=== PATIENT | female | born 1965 | race Caucasian/White ===

== ENCOUNTER 2020-01-09 10:13 | Outpatient (CLI) | payer OTHER, SELFPAY ==
--- NOTE | 2020-01-09 11:00 | NEURO_ITS ---
Patient Number: [id number] Impression: # History of Carpal Tunnel Syndrome surgery; Complains of bilateral hand pain. # Bilateral ulnar neuropathy across the elbow, left more than right. # Mild residual right median nerve involvement. # Needle/EMG exam abnormal. # Clinical correlation recommended. Nerve Conduction Studies Anti Sensory Summary Table Stim Site NR Peak (ms) P-T Amp (?V) Site1 Site2 Delta-P (ms) Dist (cm) Stan (m/s) Left Median Anti Sensory (2-3nd Digit) Wrist 3.5 26.0 Wrist 2-3nd Digit 3.5 14.0 40 Wrist 3.5 39.4 Wrist 2-3nd Digit 3.5 14.0 40 Right Median Anti Sensory (2-3nd Digit) Wrist 3.6 14.7 Wrist 2-3nd Digit 3.6 14.0 39 Wrist 3.8 19.8 Wrist 2-3nd Digit 3.6 14.0 39 Left Radial Anti Sensory (Base 1st Digit) Wrist 2.2 20.2 Wrist Base 1st Digit 2.2 0.0 Right Radial Anti Sensory (Base 1st Digit) Wrist 2.3 11.7 Wrist Base 1st Digit 2.3 0.0 Left Ulnar Anti Sensory (5th Digit) Wrist 3.1 22.0 Wrist 5th Digit 3.1 14.0 45 Right Ulnar Anti Sensory (5th Digit) Wrist 2.4 26.7 Wrist 5th Digit 2.4 14.0 58 Motor Summary Table Stim Site NR Onset (ms) O-P Amp (mV) Site1 Site2 Delta-0 (ms) Dist (cm) Stan (m/s) Left Median Motor (Abd Poll Brev) Wrist 3.6 7.5 Elbow Wrist 5.4 28.0 52 Elbow 9.0 3.8 Right Median Motor (Abd Poll Brev) Wrist 4.0 0.9 Elbow Wrist 4.2 26.0 62 Elbow 8.2 2.4 Left Ulnar Motor (Abd Dig Minimi) Wrist 3.4 4.3 A Elbow Wrist 6.7 29.0 43 A Elbow 10.1 1.8 B Elbow Wrist 3.7 28.0 76 B Elbow 7.1 2.7 Right Ulnar Motor (Abd Dig Minimi) Wrist 2.4 5.2 A Elbow Wrist 7.4 28.0 38 A Elbow 9.8 3.1 B Elbow Wrist 4.0 20.0 50 B Elbow 6.4 2.8 F Wave Studies NR F-Lat (ms) L-R F-Lat (ms) Left Median (Mrkrs) (Abd Poll Brev) 29.14 0.67 Right Median (Mrkrs) (Abd Poll Brev) 28.48 0.67 Left Ulnar (Mrkrs) (Abd Dig Min) 29.37 0.40 Right Ulnar (Mrkrs) (Abd Dig Min) 28.97 0.40 EMG Side Muscle Nerve Root Ins Act Fibs Amp Dur Recrt Comment Right 1stDorInt Ulnar C8-T1 Nml Nml Nml >12ms Reduced Right Ext Indicis Radial (Post Int) C7-8 Nml Nml Nml Nml Nml Right Ext Digitorum Radial (Post Int) C7-8 Nml Nml Nml Nml Nml Right BrachioRad Radial C5-6 Nml Nml Nml Nml Nml Right PronatorTeres Median C6-7 Nml Nml Nml Nml Nml Right Abd Poll Brev Median C8-T1 Nml Nml Nml >12ms Reduced Left 1stDorInt Ulnar C8-T1 Nml Nml Nml >12ms Reduced Left Ext Indicis Radial (Post Int) C7-8 Nml Nml Nml Nml Nml Left Ext Digitorum Radial (Post Int) C7-8 Nml Nml Nml Nml Nml Left BrachioRad Radial C5-6 Nml Nml Nml Nml Nml Left PronatorTeres Median C6-7 Nml Nml Nml Nml Nml Left Abd Poll Brev Median C8-T1 Nml Nml Nml >12ms Reduced MTDD
== END 2020-01-09 10:14 | disposition home or self-care (01) ==
PROVIDERS: PCP Internal Medicine Gastroenterology; Visit Provider Orthopaedic Surgery
DX: G56.23 Lesion of ulnar nerve, bilateral upper limbs (principal)
CPT/HCPCS: 95886; 95911

== ENCOUNTER 2022-07-23 10:08 | Emergency (ER) | payer OTHER, SELFPAY ==
--- NOTE | ~2022-07-23 | XR_ITS ---
EXAMINATION: XR chest 1V portable DATE: 07/23/2022 12:31 INDICATION: Cough and congestion. TECHNIQUE: A single frontal view of the chest was obtained. COMPARISON: None. FINDINGS: The chest demonstrates clear lungs without pneumonia, pleural effusion, or pneumothorax. Th e heart size is normal. IMPRESSION: 1. No acute cardiopulmonary disease. Reviewed, dictated and finalized at location A. 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
[2022-07-23 10:12] VITALS: BP 139/79; PULSE 91; RESP 18; TEMP 36.1; O2SAT 96
[2022-07-23] MEDS: SODIUM CHLORIDE 0.9% IV 1,000 ML 999 ML IV CONT (10:54)
[2022-07-23] MEDS: ONDANSETRON INJ 4 MG/2 ML VIAL IV PUSH (10:55)
[2022-07-23] MEDS: ACETAMINOPHEN 500 MG TABLET 1000 MG PO (10:56)
[2022-07-23 11:05] VITALS: BP 140/81; PULSE 84; RESP 16; TEMP 37.1; O2SAT 98
[2022-07-23 11:16] LABS: Basophils Absolute Auto 0.02 K/mm3 (0.00-0.10); Basophils Percent Auto 0.2 % (0.0-1.0); Eosinophils Absolute Auto 0.27 K/mm3 (0.02-0.50); Eosinophils Percent Auto 2.8 % (1.0-6.0); Hematocrit 35.7 % (35.0-49.0); Hemoglobin 11.2 g/dL (12.0-15.0); Immature Granulocyte Absolute 0.06 K/mm3 (0.00-0.00); Immature Granulocyte Percent A 0.6 % (0.0-0.0); Lymphocytes Absolute Auto 1.88 K/mm3 (1.10-4.50); Lymphocytes Percent Auto 19.6 % (18.0-42.0); Mean Corpuscular HGB Conc 31.4 g/dL (32.0-36.0); Mean Corpuscular Hemoglobin 29.1 pg (27.0-31.0); Mean Corpuscular Volume 92.7 fL (78.0-102.0); Mean Platelet Volume 8.8 fl (9.2-11.8); Monocytes Absolute Auto 0.34 K/mm3 (0.10-0.90); Monocytes Percent Auto 3.5 % (2.0-11.0); Neutrophils Percent Auto 73.3 % (50.0-70.0); Platelet Count Result 290 K/mm3 (150-420); Red Blood Count 3.85 M/mm3 (4.20-5.40); Red Cell Distribution Width 13.4 % (11.6-14.4); White Blood Count 9.6 K/mm3 (4.8-10.8)
[2022-07-23 11:19] LABS: Add Urine Microscopic? YES; Appearance Urine Clear (Clear); Bilirubin Urine 1+ (Negative); Blood Urine 2+ (Negative); Color Urine Yellow (Yellow); Glucose Urine UA Negative (Negative); Ketones Urine Trace (Negative); Leukocyte Esterase Ur Negative LEU/UL (Negative); Nitrate Urine Negative (Negative); Protein Urine Trace (Negative); Specific Grav Ur 1.025 (1.010-1.020); Urobilinogen Urine 0.2 mg/dL (0.2-1.0); pH Urine 6.5 (5.0-8.0)
[2022-07-23 11:23] LABS: Bacteria Urine 1+ /hpf; Squamous Epithelial Cell Urine Moderate /hpf (Few); WBC Urine None seen /hpf (0-3)
[2022-07-23 11:24] LABS: Mucus Urine Moderate /lpf
[2022-07-23 11:32] LABS: Alanine Aminotransferase 16 U/L (14-59); Albumin Level 2.8 g/dL (3.4-5.0); Alkaline Phosphatase 100 U/L (46-116); Anion Gap 5 mmol/L (8-16); Aspartate Amino Transferase 18 U/L (15-37); Bilirubin,Total 0.2 mg/dL (0.00-1.00); Blood Urea Nitrogen 9 mg/dL (7-18); Carbon Dioxide 29 mmol/L (21-32); Chloride 104 mmol/L (98-108); Estimated CRCL calculation 80 ml/min; Estimated Glomerular Filt Rate > 60; Glucose 106 mg/dL (70-99); Lipase 48 U/L (16-77); Osmolality Calculated 284 mOsm/kg (285-295); Potassium 3.1 mmol/L (3.5-5.1); Sodium 138 mmol/L (136-145); Total Protein 6.7 g/dL (6.4-8.2)
[2022-07-23 11:53] LABS: Influenza A QL RT-PCR Negative (Negative); Influenza B QL RT-PCR Negative (Negative); SARS-CoV-2 RNA PCR Negative (Negative)
[2022-07-23 12:05] VITALS: BP 129/74; PULSE 85; RESP 18; O2SAT 97
--- NOTE | 2022-07-23 12:52 | ED.NAVMDI ---
HPI - Nausea/Vomiting/Diarrhea General Chief complaint: Nausea/Vomiting/Diarrhea Stated complaint: Cough,Fever,Diarrhea,Nausea Time Seen by Provider: 07/23/22 10:20 Source: patient and family Mode of arrival: ambulatory Limitations: no limitations History of Present Illness HPI Narrative: this is a 57-year-old female that presents with some a month long history of diarrhea which she states is pretty much normal for her with cough and mucus production and having some nausea with no vomiting temperature of 101? no abdominal pain patient denies having dysuria no flank pain cough is nonproductive with no shortness of breath no chest pain. MD elicited complaint: nausea and diarrhea Onset (ago): month(s) Description of diarrhea: mucus and watery Severity: mild Related Data Home Medications Medication Instructions Recorded Confirmed gabapentin 600 mg tablet 600 mg PO TID 07/23/22 07/23/22 lithium carbonate 300 mg capsule 300 mg PO BID 07/23/22 07/23/22 omeprazole magnesium 20 mg 20 mg PO DAILY 07/23/22 07/23/22 tablet,delayed release (Prilosec OTC) quetiapine 50 mg tablet 50 mg PO QHS 07/23/22 07/23/22 sertraline 100 mg tablet 100 mg PO TID 07/23/22 07/23/22 Allergies Allergy/AdvReac Type Severity Reaction Status Date / Time adhesive tape Allergy Severe BLISTERS Verified 07/23/22 10:30 ferrous fumarate Allergy Severe HIVES, SOB Verified 07/23/22 10:30 folic acid Allergy Severe HIVES, SOB Verified 07/23/22 10:30 morphine Allergy Severe IRRITABILIT Verified 07/23/22 10:30 Y vit,tx Allergy Severe HIVES, SOB Verified 07/23/22 10:30 calc,iron,folic acd(less thn 1 mg) vitamins with Allergy Severe HIVES, SOB Verified 07/23/22 10:30 calcium Tombufj-CTZ-RqU Reductase Allergy Severe DECREASED Verified 07/23/22 10:30 Inhibitor KIDNEY [Wgjkvvn-Xmk-Fuq Reductase FUNCTION Inhibitor] Review of Systems Review of Systems: All systems reviewed & are unremarkable except as noted in HPI and below PMFSH Past Medical History Medical History Chronic diarrhea Exam Const: General: healthy appearing Nutritional Appearance: well nourished Orientation/consciousness: patient oriented x3 Limitations: no limitations HENMT: Head: normal to inspection Eyes: Conjunctivae: conjunctivae normal Pupils: Equal, round and reactive pupils present EOM: EOMs intact bilaterally Neck: Neck: normal visual inspection, no lymphadenopathy and no meningeal signs Chest: Chest palpation & inspection: normal inspection of the chest Resp: Effort & Inspection: normal respiratory effort Auscultation: clear to auscultation bilaterally Cardio: Rate: regular rate Rhythm: regular rhythm GI: GI Palp: Yes Soft to palpation Auscultation: normal bowel sounds : General: Yes bladder normal to palpation Urinary Catheter: Urinary Catheter: patent and draining Skin: General skin exam: normal color Rashes: no rashes Wounds: no wounds Neuro: General: patient oriented x3 Cranial nerves: Yes Nystagmus not present Speech: normal speech Extrem: General: normal to inspection Psych: Mental Status: mental status grossly normal Affect: normal affect Course Course Emergency Course: labs and x-ray reviewed with patient with which is within normal limits except her potassium which was 3.1, patient received in the ER IV fluids and a dose of p.o. potassium chest x-ray reviewed and shows no acute cardiopulmonary abnormalities and will start Z-Gordon at which we will send to her pharmacy. Vital Signs Vital signs: Vital Signs Temperature 36.1 C L 07/23/22 10:12 Pulse Rate 91 07/23/22 10:12 Respiratory Rate 18 07/23/22 10:12 Blood Pressure 139/79 07/23/22 10:12 Pulse Oximetry 96 07/23/22 10:12 Oxygen Delivery Room Air 07/23/22 10:12 Temperature 37.1 C 07/23/22 11:05 Pulse Rate 85 07/23/22 12:05 Respiratory Rate 18 07/23/22
[2022-07-23] MEDS: POTASSIUM BICARBONATE 25 MEQ TABEF 50 MEQ PO (13:07)
[2022-07-23 13:11] VITALS: BP 145/73; PULSE 65; RESP 16; TEMP 36.2; O2SAT 98
== END 2022-07-23 13:14 | disposition home or self-care (01) ==
PROVIDERS: Emergency Provider Emergency Medicine; PCP Internal Medicine Gastroenterology
DX: E86.0 Dehydration (principal); J40 Bronchitis, not specified as acute or chronic; E87.6 Hypokalemia; Z20.822 Contact with and (suspected) exposure to COVID-19
CPT/HCPCS: 36415; 71045; 80053; 81001; 83690; 85025; 87040; 87636; 96361; 96374; 99284; A9270; J2405; J7030

== ENCOUNTER 2023-01-27 19:42 | Emergency (ER) | payer OTHER, SELFPAY ==
[2023-01-27 19:48] VITALS: BP 140/74; PULSE 84; RESP 18; TEMP 37.1; O2SAT 97
--- NOTE | 2023-01-27 20:01 | ED.EXTPRO ---
HPI - Extremity Problem General Chief complaint: Extremity Problem,Nontraumatic Stated complaint: Blood Clot Source: patient Mode of arrival: ambulatory Limitations: no limitations History of Present Illness HPI Narrative: 57-year-old female with a history of anxiety /depression, bipolar, presents to the ER with -- left lateral leg pain around the ankle along with a knot about left ankle. Patient thinks it is a blood clot. No chest pain. No shortness of breath. MD Complaint: extremity pain Onset (ago): day(s) Pain Consistency: intermittent Location: left Radiation: none Relieving factors: immobilization Exacerbating factors: weight bearing Associated symptoms: denies other symptoms Related Data Home Medications Medication Instructions Recorded Confirmed gabapentin 600 mg tablet 600 mg PO TID 07/23/22 07/23/22 lithium carbonate 300 mg capsule 300 mg PO BID 07/23/22 07/23/22 omeprazole magnesium 20 mg 20 mg PO DAILY 07/23/22 07/23/22 tablet,delayed release (Prilosec OTC) quetiapine 50 mg tablet 50 mg PO QHS 07/23/22 07/23/22 sertraline 100 mg tablet 100 mg PO TID 07/23/22 07/23/22 Allergies Allergy/AdvReac Type Severity Reaction Status Date / Time adhesive tape Allergy Severe BLISTERS Verified 07/23/22 10:30 ferrous fumarate Allergy Severe HIVES, SOB Verified 07/23/22 10:30 folic acid Allergy Severe HIVES, SOB Verified 07/23/22 10:30 morphine Allergy Severe IRRITABILIT Verified 07/23/22 10:30 Y vit,tx Allergy Severe HIVES, SOB Verified 07/23/22 10:30 calc,iron,folic acd(less thn 1 mg) vitamins with Allergy Severe HIVES, SOB Verified 07/23/22 10:30 calcium Exaghbv-GSR-NzG Reductase Allergy Severe DECREASED Verified 07/23/22 10:30 Inhibitor KIDNEY [Fmqazwj-Idg-Wrc Reductase FUNCTION Inhibitor] Review of Systems Review of Systems: All systems reviewed & are unremarkable except as noted in HPI and below Constitutional: Constitutional: Reports as per HPI and Reports no additional constitutional complaints Eyes: Eyes: Reports as per HPI and Reports no additional eye complaints ENT: Reports system reviewed and no additional complaints, except as documented and Reports as per HPI Cardiovascular: Cardiovascular: Reports as per HPI and Reports no additional cardiovascular complaints Respiratory: Respiratory: Reports as per HPI and Reports no additional respiratory complaints Gastrointestinal: Gastrointestinal: Reports as per HPI and Reports no additional gastrointestinal complaints Genitourinary: Genitourinary: Reports no additional female genitourinary complaints and Reports as per HPI Musculoskeletal: Musculoskeletal: Reports no additional musculoskeletal complaints and Reports as per HPI Comments: Pain left lateral leg. no swelling noted Integumentary/Breasts: Skin/Breast: Reports system reviewed and no additional complaints, except as docu Neurologic: Reports system reviewed and no additional complaints, except as documented and Reports as per HPI Psychiatric: Psychiatric: Reports no additional psychiatric complaints and Reports as per HPI Endocrine: Endocrine: Reports no additional endocrine complaints and Reports as per HPI Hematologic/Lymphatic: Hematologic/Lymphatic: Reports no additional hematologic/lymphatic complaints and Reports as per HPI Allergic/Immunologic: Allergic/Immunologic: Reports no additional allergic/immunologic complaints and Reports as per HPI PMFSH Past Medical History Medical History (Updated 01/27/23 @ 21:16 by Seth Soto MD) Bipolar 1 disorder section wound complication Chronic diarrhea Surgical History Surgical History (Updated 01/27/23 @ 20:31 by Seth Soto MD) H/O: hysterectomy Social History Social History (Updated 01/27/23 @ 20:31 by Seth Soto MD) Social History: nonsmoker. Nonalcoholic. No drug use. Exam Const: General: no acute distress Nutritiona
[2023-01-27 20:36] LABS: Basophils Absolute Auto 0.02 K/mm3 (0.00-0.10); Basophils Percent Auto 0.2 % (0.0-1.0); Eosinophils Absolute Auto 0.21 K/mm3 (0.02-0.50); Eosinophils Percent Auto 2.2 % (1.0-6.0); Hematocrit 39.7 % (35.0-49.0); Hemoglobin 12.5 g/dL (12.0-15.0); Immature Granulocyte Absolute 0.02 K/mm3 (0.00-0.00); Immature Granulocyte Percent A 0.2 % (0.0-0.0); Lymphocytes Absolute Auto 2.55 K/mm3 (1.10-4.50); Mean Corpuscular HGB Conc 31.5 g/dL (32.0-36.0); Mean Corpuscular Hemoglobin 29.7 pg (27.0-31.0); Mean Corpuscular Volume 94.3 fL (78.0-102.0); Mean Platelet Volume 8.7 fl (9.2-11.8); Monocytes Absolute Auto 0.35 K/mm3 (0.10-0.90); Monocytes Percent Auto 3.7 % (2.0-11.0); Neutrophils Absolute Auto 6.3 K/mm3 (1.7-7.2); Neutrophils Percent Auto 66.7 % (50.0-70.0); Platelet Count Result 278 K/mm3 (150-420); Red Blood Count 4.21 M/mm3 (4.20-5.40); Red Cell Distribution Width 14.6 % (11.6-14.4); White Blood Count 9.5 K/mm3 (4.8-10.8)
[2023-01-27 20:50] LABS: INR 0.9; Partial Thromboplastin Time 24.2 SEC (23.90-30.70); Prothrombin Time 9.8 Seconds (9.50-12.10)
[2023-01-27 20:58] LABS: Lactic Acid Reflex < 0.3 mmol/L (0.4-2.0)
[2023-01-27 20:59] LABS: Alanine Aminotransferase 23 U/L (14-59); Albumin Level 3.6 g/dL (3.4-5.0); Alkaline Phosphatase 109 U/L (46-116); Anion Gap 7 mmol/L (8-16); Aspartate Amino Transferase 22 U/L (15-37); Bilirubin,Total 0.5 mg/dL (0.00-1.00); Blood Urea Nitrogen 10 mg/dL (7-18); Calcium 8.9 mg/dL (8.5-10.1); Carbon Dioxide 28 mmol/L (21-32); Chloride 105 mmol/L (98-108); Estimated CRCL calculation 67 ml/min; Estimated Glomerular Filt Rate > 60; Glucose 119 mg/dL (70-99); Osmolality Calculated 290 mOsm/kg (285-295); Sodium 140 mmol/L (136-145); Total Protein 7.2 g/dL (6.4-8.2)
[2023-01-27 21:00] LABS: Troponin I 6.3 ng/L (0.00-60.4)
[2023-01-27 21:08] LABS: D Dimer 0.96 mg/L (0.19-0.50)
[2023-01-27] MEDS: ENOXAPARIN 100 MG/ML SYRINGE SUB-Q (21:19)
[2023-01-27 21:22] VITALS: BP 135/85; PULSE 85; RESP 18; TEMP 36.6; O2SAT 97
== END 2023-01-27 21:31 | disposition home or self-care (01) ==
PROVIDERS: Emergency Provider Internal Medicine Critical Care Medicine; PCP Internal Medicine Gastroenterology
DX: M79.605 Pain in left leg (principal); R79.1 Abnormal coagulation profile
CPT/HCPCS: 36415; 80053; 83605; 84484; 85025; 85380; 85610; 85730; 96372; 99283; J1650

== ENCOUNTER 2023-01-28 21:18 | Emergency (ER) | payer OTHER, SELFPAY ==
--- NOTE | ~2023-01-28 | CT_ITS ---
Clinical Indication: Shortness of breath CT Scan of the Chest with Contrast: Technique: Contiguous sections were acquired throughout the chest after intravenous administration of 100 cc of Omnipaque 350. Dose reduction technique was used on this scan by utilizing automated expos ure control and iterative reconstruction technique. The dose-length product (DLP) was 691.11 mGy-cm. Findings: There is no evidence of any significant mediastinal, hilar or axillary lymphadenopathy. There is no f illing defect in the pulmonary arterial tree to suggest pulmonary embolus. There is no evidence of ao rtic dissection or aneurysm. There is no evidence of pleural or pericardial effusion. Suggestion of minimal diffuse interstitial prominence, nonspecific. No focal consolidation or pulmona ry nodule evident. Images through the upper abdomen reveal no abnormalities. Impression: No evidence of pulmonary embolus, aortic dissection, or aortic aneurysm. Minimal diffuse interstitial prominence, nonspecific. Correlate for any possibility of minimal pulmon aurora edema or interstitial infection. Reviewed, dictated and finalized at [facility]. Impression: No evidence of pulmonary embolus, aortic dissection, or aortic aneurysm. Minimal diffuse interstitial prominence, nonspecific. Correlate for any possibi lity of minimal pulmonary edema or interstitial infection.
[2023-01-28 21:26] VITALS: BP 146/77; PULSE 82; RESP 17; TEMP 36.4; O2SAT 99
[2023-01-28 23:36] VITALS: BP 155/97; PULSE 73; RESP 15; TEMP 36.6; O2SAT 100
[2023-01-29] VITALS (7 sets, daily range): BP systolic 114–131; BP diastolic 69–74; PULSE 61–72; RESP 10–18; TEMP 36.6; O2SAT 96–98
--- NOTE | 2023-01-29 00:43 | ECG_ITS ---
Measurements Intervals Beals Rate: 61 P: 34 AK: 167 QRS: 28 QRSD: 96 T: 29 QT: 447 QTc: 451 Interpretive Statements SINUS RHYTHM INCOMPLETE RIGHT BUNDLE BRANCH BLOCK DELAYED PRECORDIAL R/S TRANSITION BASELINE ARTIFACT- II, III, AVR, AVF, V1-V3 BORDERLINE ECG COMPARED TO ECG 12/08/2018 14:28:58 NO SIGNIFICANT CHANGES Electronically Signed On 01-29-2023 9:46:00 CDT by Bentley Blanc D.O.
[2023-01-29 01:07] LABS: Basophils Percent Auto 0.2 % (0.2-1.2); Eosinophils Absolute Auto 0.3 K/mm3 (0-0.3); Eosinophils Percent Auto 2.6 % (0-4.4); Hematocrit 39.6 % (37.0-47.0); Hemoglobin 12.2 g/dL (12.0-15.0); Immature Granulocyte Absolute 0.04 K/mm3 (0.00-0.031); Immature Granulocyte Percent A 0.4 % (0-0.5); Lymphocytes Absolute Auto 3.32 K/mm3 (0.9-3.2); Mean Corpuscular HGB Conc 30.8 g/dl (32-36); Mean Corpuscular Hemoglobin 29.4 pg (26-34); Mean Corpuscular Volume 95.4 fl (80-100); Mean Platelet Volume 8.9 fl (7.4-10.4); Monocytes Absolute Auto 0.5 K/mm3 (0.1-0.6); Monocytes Percent Auto 4.9 % (2.6-8.5); Neutrophils Absolute Auto 6.2 K/mm3 (1.3-6.7); Neutrophils Percent Auto 59.9 % (45.5-73.1); Platelet Count Result 278 k/mm3 (150-375); Red Blood Count 4.15 M/mm3 (4.2-5.4); White Blood Count 10.4 K/mm3 (4.5-10.0)
[2023-01-29 01:18] LABS: INR 0.9
[2023-01-29 01:19] LABS: Partial Thromboplastin Time 23.6 SECONDS (22.3-36.8)
[2023-01-29 01:30] LABS: Alanine Aminotransferase 23 U/L (6-35); Albumin Level 4.1 g/dL (3.5-5.1); Alkaline Phosphatase 96 U/L (38-126); Anion Gap 0 mmol/L (8-16); Aspartate Amino Transferase 32 U/L (14-36); Bilirubin,Total 0.4 mg/dL (0.2-1.3); Blood Urea Nitrogen 10 mg/dL (7-17); Calcium 9.3 mg/dL (8.4-10.2); Carbon Dioxide 31 mmol/L (22-30); Chloride 103 mmol/L (98-107); Estimated CRCL calculation 74 ml/min; Estimated Glomerular Filt Rate > 60; Glucose 95 mg/dL (65-110); Sodium 134 mmol/L (137-145); Troponin I < 0.012 ng/mL (0.000-0.034)
--- NOTE | 2023-01-29 02:52 | ED.LOWEXIN ---
HPI - Extremity Injury (Lower) General Chief Complaint: Extremity Injury, Lower <Madison Pendleton APRN - Last Filed: 01/29/23 03:23> Stated Complaint: concerned about blood clot LLE <Madison Pendleton APRN - Last Filed: 01/29/23 03:23> Time Seen by Provider: 01/29/23 00:37 <Madison Pendleton APRN - Last Filed: 01/29/23 03:23> Source: patient <Madison Pendleton APRN - Last Filed: 01/29/23 03:23> Mode of arrival: ambulatory <Madison Pendleton APRN - Last Filed: 01/29/23 03:23> Limitations: no limitations <Madison Pendleton APRN - Last Filed: 01/29/23 03:23> History of Present Illness HPI Narrative: 58-year-old female presents today with complaints of left lower extremity swelling and pain without injury. Patient was seen on at [facility] when she was evaluated for a possible DVT. D-dimer was elevated at that time. Patient did not have an ultrasound venous Doppler done due to the facility not having capabilities at that time. She was given a dose of Lovenox and instructed to follow-up with her primary care doctor today who would prescribe a ultrasound venous Doppler. Patient did not follow-up with her primary care physician today. States she called up around 10:00 in summary and told her that we would be able to do an ultrasound venous Doppler at that time if she came in. Patient now with complaints of about 5 hours ago intermittent shortness of breath and intermittent chest pain. Patient states she does have a history of anxiety and it could possibly be just that. Pain to the center of the chest a dull ache. Some shortness of breath with activity. She is in ex-smoker. <Madison Pendleton APRN - Last Filed: 01/29/23 03:23> Related Data Home Medications: Home Medications Medication Instructions Recorded Confirmed gabapentin 600 mg tablet 600 mg PO TID 07/23/22 07/23/22 lithium carbonate 300 mg capsule 300 mg PO BID 07/23/22 07/23/22 omeprazole magnesium 20 mg 20 mg PO DAILY 07/23/22 07/23/22 tablet,delayed release (Prilosec OTC) quetiapine 50 mg tablet 50 mg PO QHS 07/23/22 07/23/22 sertraline 100 mg tablet 100 mg PO TID 07/23/22 07/23/22 <Madison Pendleton APRN - Last Filed: 01/29/23 03:23> Allergies/Adverse Reactions: Allergies Allergy/AdvReac Type Severity Reaction Status Date / Time adhesive tape Allergy Severe BLISTERS Verified 07/23/22 10:30 ferrous fumarate Allergy Severe HIVES, SOB Verified 07/23/22 10:30 folic acid Allergy Severe HIVES, SOB Verified 07/23/22 10:30 morphine Allergy Severe IRRITABILIT Verified 07/23/22 10:30 Y vit,tx Allergy Severe HIVES, SOB Verified 07/23/22 10:30 calc,iron,folic acd(less thn 1 mg) vitamins with Allergy Severe HIVES, SOB Verified 07/23/22 10:30 calcium Lnenkjr-LJO-FaK Reductase Allergy Severe DECREASED Verified 07/23/22 10:30 Inhibitor KIDNEY [Jnyvlgs-Brg-Bnu Reductase FUNCTION Inhibitor] <Madison Pendleton APRN - Last Filed: 01/29/23 03:23> Review of Systems Review of Systems: CONSTITUTIONAL: Denies fever, chills, or sweats. EYES: Denies visual changes, redness, or discharge. ENT: Denies rhinorrhea, congestion, sore throat, or otalgia. CARDIOVASCULAR: Chest pain. Denies palpitations, or edema. RESPIRATORY: Dyspnea on exertion. Denies cough. GASTROINTESTINAL: Denies abdominal pain, nausea, vomiting, or diarrhea. GENITOURINARY: Denies dysuria or hematuria. MUSCULOSKELETAL: Denies back pain, joint pain, or myalgia. NEUROLOGIC: Denies headache, numbness, dizziness, or weakness. PSYCHIATRIC: Denies anxiety or depression. <Madison Pendleton APRN - Last Filed: 01/29/23 03:23> PMFSH Past Medical History Medical History: Medical History Bipolar 1 disorder section wound complication Chronic diarrhea <Madison Pendleton APRN - Last Filed: 01/29/23 03:23> Surgical History Surgical History: Surgical History
[2023-01-29] MEDS: ENOXAPARIN 100 MG/ML SYRINGE 86 MG SUB-Q (03:21)
== END 2023-01-29 03:32 | disposition home or self-care (01) ==
PROVIDERS: Emergency Provider Nurse Practitioner Family; PCP Internal Medicine Gastroenterology
DX: R06.02 Shortness of breath (principal); F41.9 Anxiety disorder, unspecified; M79.89 Other specified soft tissue disorders; R79.1 Abnormal coagulation profile
CPT/HCPCS: 36415; 71275; 80053; 84484; 85025; 85610; 85730; 93005; 96372; 99284; J1650; Q9967

== ENCOUNTER 2023-02-03 09:53 | Outpatient (CLI) | payer OTHER, SELFPAY ==
--- NOTE | ~2023-02-03 | US_ITS ---
EXAMINATION: US venous doppler [facility] DATE: 02/03/2023 10:27 INDICATION: LEFT LEG PAIN;LEFT LEG SWELLING;ELEVATED D-DIMER;R/O DVT . TECHNIQUE: Grayscale images without and with compression and Doppler images of the left lower extremi ty veins were obtained. COMPARISON: None FINDINGS: The left common femoral vein, profunda (deep) femoral vein, femoral vein, popliteal vein, peroneal v ein, posterior tibial veins, gastrocnemius vein, and greater saphenous vein are patent. Flat, hypoech oic subcutaneous area deep to the palpable abnormality, may represent a contusion/hematoma, or focal subcutaneous edema. IMPRESSION: Patent left lower extremity veins. No evidence of deep venous thrombosis. Reviewed, dictated and finalized at location K.
== END 2023-02-03 09:54 | disposition home or self-care (01) ==
PROVIDERS: PCP Internal Medicine Gastroenterology; Visit Provider Nurse Practitioner Family
DX: M79.662 Pain in left lower leg (principal)
CPT/HCPCS: 93971

== ENCOUNTER 2023-02-26 14:48 | Outpatient (CLI) | payer OTHER, SELFPAY ==
--- NOTE | ~2023-02-26 | US_ITS ---
EXAMINATION: US thyroid DATE: 02/26/2023 15:10 INDICATION: Nontoxic goiter. TECHNIQUE: Multiple ultrasound images of the thyroid were obtained. COMPARISON: None. FINDINGS: The right thyroid lobe measures 4.2 x 1.6 x 2.3 cm. The left thyroid lobe measures 3.7 x 1.7 x 1.8 c m. There is normal echotexture and echogenicity throughout the thyroid gland. No discrete nodules id entified. Normal vascular flow is present. IMPRESSION: 1. Normal thyroid. Reviewed, dictated and finalized at location A. IMPRESSION: 1. Normal thyroid.
[2023-02-26 15:30] LABS: Basophils Absolute Auto 0.02 K/mm3 (0.00-0.10); Basophils Percent Auto 0.2 % (0.0-1.0); Eosinophils Absolute Auto 0.21 K/mm3 (0.02-0.50); Eosinophils Percent Auto 2.6 % (1.0-6.0); Hemoglobin 12.2 g/dL (12.0-15.0); Immature Granulocyte Absolute 0.02 K/mm3 (0.00-0.00); Immature Granulocyte Percent A 0.2 % (0.0-0.0); Lymphocytes Absolute Auto 2.63 K/mm3 (1.10-4.50); Lymphocytes Percent Auto 32.4 % (18.0-42.0); Mean Corpuscular HGB Conc 32.1 g/dL (32.0-36.0); Mean Corpuscular Hemoglobin 30.2 pg (27.0-31.0); Mean Corpuscular Volume 94.1 fL (78.0-102.0); Mean Platelet Volume 8.5 fl (9.2-11.8); Monocytes Absolute Auto 0.36 K/mm3 (0.10-0.90); Monocytes Percent Auto 4.4 % (2.0-11.0); Neutrophils Absolute Auto 4.9 K/mm3 (1.7-7.2); Neutrophils Percent Auto 60.2 % (50.0-70.0); Platelet Count Result 285 K/mm3 (150-420); Red Blood Count 4.04 M/mm3 (4.20-5.40); Red Cell Distribution Width 14.2 % (11.6-14.4); White Blood Count 8.1 K/mm3 (4.8-10.8)
[2023-02-26 16:35] LABS: Cholesterol 318 mg/dL (0-200); Ferritin 22 ng/mL (8-252); Folic Acid 4.8 ng/mL (8.6->20); Free T3 2.01 pg/mL (2.18-3.98); HDL Direct 32 mg/dL (40-60); Iron 63 ug/dL (50-170); LDL Cholesterol Calculated 240 mg/dL (<130); Percent Iron Saturation 17 % (12-57); Triglycerides 232 mg/dL (0-150); Vitamin B12 300 pg/mL (193-986)
[2023-02-26 18:21] LABS: Free T4 Free Thyroxine 0.65 ng/dL (0.76-1.46)
[2023-03-02 03:59] LABS: Insulin Level Total 5.2 uIU/mL (<=19.6); Thyroid Peroxidase Antibodies 1 IU/mL (<9)
== END 2023-02-26 14:49 | disposition home or self-care (01) ==
PROVIDERS: PCP Internal Medicine Gastroenterology; Visit Provider Internal Medicine Gastroenterology
DX: E04.9 Nontoxic goiter, unspecified (principal); R53.83 Other fatigue; E03.9 Hypothyroidism, unspecified; E78.5 Hyperlipidemia, unspecified
CPT/HCPCS: 36415; 76536; 80061; 82607; 82728; 82746; 83525; 83540; 83550; 84439; 84443; 84481; 85025; 86376

== ENCOUNTER 2023-03-03 10:34 | Outpatient (CLI) | payer OTHER, SELFPAY ==
--- NOTE | ~2023-03-03 | CT_ITS ---
EXAMINATION: CT brain wo con DATE: 03/03/2023 10:52 INDICATION: Headache. TECHNIQUE: Computed tomography (CT) of the head was performed without intravenous contrast. The mA wa s adjusted according to patient size. Iterative reconstruction technique was employed. The dose-lengt h product was 681.00 mGy-cm. COMPARISON: None FINDINGS: There is no intracranial hemorrhage, acute infarction, or abnormal intracranial mass lesion . The ventricles are normal in size. There are likely changes of ocular lens replacement surgeries. T here is mild mucosal thickening in the paranasal sinuses. The mastoid air cells are normal. IMPRESSION: 1. Normal brain. Reviewed, dictated and finalized at location A. IMPRESSION: 1. Normal brain.
== END 2023-03-03 10:35 | disposition home or self-care (01) ==
LOC: CHSIMG 10:36
PROVIDERS: PCP Internal Medicine Gastroenterology; Visit Provider Internal Medicine Gastroenterology
DX: R51.9 Headache, unspecified (principal)
CPT/HCPCS: 70450

== ENCOUNTER 2023-11-24 12:33 | Emergency (ER) | payer OTHER, SELFPAY ==
[2023-11-24] VITALS (11 sets, daily range): BP systolic 127–174; BP diastolic 61–104; PULSE 59–78; RESP 10–27; TEMP 36.2; O2SAT 94–100
--- NOTE | ~2023-11-24 | XR_ITS ---
EXAMINATION: XR chest 1V portable DATE: 11/24/2023 12:55 INDICATION: Epigastric abdominal pain. Chest pain. TECHNIQUE: A single frontal view of the chest was obtained. COMPARISON: Chest single view 07/23/22, chest CT 01/29/2023 FINDINGS: There is no pneumonia, pleural effusion, or pneumothorax. The heart size is normal. IMPRESSION: 1. No acute cardiopulmonary disease. Reviewed, dictated and finalized at location A.
--- NOTE | ~2023-11-24 | CT_ITS ---
EXAMINATION: CTA chest PE protocol DATE: 11/24/2023 14:01 INDICATION: Chest pain. TECHNIQUE: Computed tomography angiography (CTA) of the chest was performed with 100 mL Omnipaque-350 intravenous contrast timed to evaluate the pulmonary arteries. Coronal maximum intensity projection 3D-reconstructions were created by the technologist. Automated exposure control and iterative reconst ruction technique were employed. The dose-length product was 622.27 mGy-cm. COMPARISON: Chest CT 01/29/2023 FINDINGS: A calcified right lung nodule and calcified right hilar lymph nodes are consistent with old granulomatous disease. There is diffuse septal thickening in the lungs associated with mild groundgl ass opacities. No pleural effusion. The heart size is normal. There are coronary artery calcification s. No pericardial effusion. There is no pulmonary embolus. Calcifications in the spleen are consisten t with old granulomatous disease. There is severe thoracic spondylosis. IMPRESSION: 1. No pulmonary embolus. 2. Stable diffuse lung disease, which may be recurrent mild pulmonary edema or chronic interstitial l sima disease. Reviewed, dictated and finalized at location A. IMPRESSION: 1. No pulmonary embolus. 2. Stable diffuse lung disease, which may be recurrent mild pulmonary edema or chronic interstitial lung disease.
--- NOTE | 2023-11-24 12:35 | PC.NURSE ---
EKG being completed
--- NOTE | 2023-11-24 12:36 | ECG_ITS ---
SEE SCANNED COPY FOR CONFIRMED REPORT MTDD
--- NOTE | 2023-11-24 12:36 | ED.CHESTPAIN ---
HPI - Chest Pain General Chief Complaint: Chest Pain Stated Complaint: CHEST PAIN Time Seen by Provider: 11/24/23 12:36 Source: patient Mode of arrival: ambulatory Limitations: no limitations History of Present Illness HPI narrative: 58 year old female presents to the Emergency Department complaining of awakening with substernal chest pain. Describes as tightness and burning. History of pains in the past but not like this. Denies shortness of breath. Some nausea, no diaphoresis. No radiation of pain. No history of heart disease. Family history is positive for heart disease. Quit smoking 9 years ago. States vapes rarely. MD complaint: chest pain Onset (ago): hour(s) Prior episodes: No Pain location: substernal Pain radiation: none Severity: moderate Quality: tightness and burning Relieving factors: nothing Exacerbating factors: nothing Associated symptoms: nausea Treatment prior to arrival: none Risk Factors Coronary artery disease risk factors: smoking history and family history of CAD before age 50 Thoracic aortic dissection risk factors: none Related Data Home Medications Medication Instructions Recorded Confirmed gabapentin 600 mg tablet 600 mg PO TID 07/23/22 11/24/23 lithium carbonate 300 mg capsule 300 mg PO BID 07/23/22 11/24/23 omeprazole magnesium 20 mg 20 mg PO DAILY 07/23/22 11/24/23 tablet,delayed release (Prilosec OTC) quetiapine 50 mg tablet 50 mg PO QHS 07/23/22 11/24/23 sertraline 100 mg tablet 100 mg PO TID 07/23/22 11/24/23 Allergies Allergy/AdvReac Type Severity Reaction Status Date / Time adhesive tape Allergy Severe BLISTERS Verified 07/23/22 10:30 ferrous fumarate Allergy Severe HIVES, SOB Verified 07/23/22 10:30 folic acid Allergy Severe HIVES, SOB Verified 07/23/22 10:30 morphine Allergy Severe IRRITABILIT Verified 07/23/22 10:30 Y vit,tx Allergy Severe HIVES, SOB Verified 07/23/22 10:30 calc,iron,folic acd(less thn 1 mg) vitamins with Allergy Severe HIVES, SOB Verified 07/23/22 10:30 calcium Ivbrahn-CXK-RuM Reductase Allergy Severe DECREASED Verified 07/23/22 10:30 Inhibitor KIDNEY [Aungwzc-Poy-Brl Reductase FUNCTION Inhibitor] Review of Systems Review of Systems: All systems reviewed & are unremarkable except as noted in HPI and below Constitutional: Constitutional: Reports as per HPI, Denies chills, Denies fatigue, Denies fever(s) and Denies weakness Eyes: Eyes: Reports as per HPI ENT: Reports system reviewed and no additional complaints, except as documented Cardiovascular: Cardiovascular: Reports as per HPI, Reports no additional cardiovascular complaints, Reports chest pain, Denies rapid heart rate, Denies radiating jaw, neck or arm pain and Denies slow heart rate Respiratory: Respiratory: Reports as per HPI, Reports no additional respiratory complaints, Denies chest congestion, Denies cough and Denies dyspnea Gastrointestinal: Gastrointestinal: Reports as per HPI, Denies abdominal pain, Reports nausea and Denies vomiting Genitourinary: Genitourinary: Reports no additional female genitourinary complaints Musculoskeletal: Musculoskeletal: Reports no additional musculoskeletal complaints and Denies back pain Integumentary/Breasts: Skin/Breast: Reports system reviewed and no additional complaints, except as docu Neurologic: Reports system reviewed and no additional complaints, except as documented, Denies focal weakness, Denies numbness and Denies weakness Psychiatric: Psychiatric: Reports no additional psychiatric complaints Endocrine: Endocrine: Reports no additional endocrine complaints Hematologic/Lymphatic: Hematologic/Lymphatic: Reports no additional hematologic/lymphatic complaints Allergic/Immunologic: Allergic/Immunologic: Reports no additional allergic/immunologic complaints PMFSH Past Medical History Medical History Bipolar 1 disorder s
--- NOTE | 2023-11-24 12:46 | PC.NURSE ---
xray at the bedside
[2023-11-24] MEDS: MAG HYDROX/ALUMINUM HYD/SIMETH 30 ML, PHENobarb/HYOSCY/ATROPINE/SCOP 32.4 MG, LIDOCAINE... PO (12:52)
[2023-11-24 13:04] LABS: Basophils Absolute Auto 0.02 K/mm3 (0.00-0.10); Basophils Percent Auto 0.3 % (0.0-1.0); Eosinophils Percent Auto 3.4 % (1.0-6.0); Hematocrit 41.8 % (35.0-49.0); Immature Granulocyte Absolute 0.02 K/mm3 (0.00-0.00); Immature Granulocyte Percent A 0.3 % (0.0-0.0); Lymphocytes Absolute Auto 1.67 K/mm3 (1.10-4.50); Lymphocytes Percent Auto 28.6 % (18.0-42.0); Mean Corpuscular HGB Conc 31.1 g/dL (32-36); Mean Corpuscular Hemoglobin 28.1 pg (27.0-31.0); Mean Corpuscular Volume 90.5 fL (78.0-102.0); Mean Platelet Volume 8.8 fl (9.2-11.8); Monocytes Absolute Auto 0.22 K/mm3 (0.10-0.90); Monocytes Percent Auto 3.8 % (2.0-11.0); Neutrophils Percent Auto 63.6 % (50.0-70.0); Platelet Count Result 264 K/mm3 (150-420); Red Blood Count 4.62 M/mm3 (4.20-5.40); Red Cell Distribution Width 14.4 % (11.6-14.4); White Blood Count 5.8 K/mm3 (4.8-10.8)
--- NOTE | 2023-11-24 13:05 | PC.NURSE ---
patient reports relief of chest pain after having GI cocktail. is now at the bedside
--- NOTE | 2023-11-24 13:09 | PC.NURSE ---
patient now belching in the room
--- NOTE | 2023-11-24 13:15 | PC.NURSE ---
lab called with elevated d dimer of 1.04. ER provider has been notified
[2023-11-24 13:18] LABS: D Dimer 1.04 mg/L (0.19-0.50)
[2023-11-24 13:21] LABS: Alanine Aminotransferase 15 U/L (14-59); Albumin Level 3.3 g/dL (3.4-5.0); Alkaline Phosphatase 120 U/L (46-116); Anion Gap 14 mmol/L (4-12); Aspartate Amino Transferase 19 U/L (15-37); Bilirubin,Total 0.3 mg/dL (0.00-1.00); Blood Urea Nitrogen 12 mg/dL (7-18); Carbon Dioxide 25 mmol/L (21-32); Chloride 103 mmol/L (98-108); Creatine Kinase 54 U/L (26-192); Estimated CRCL calculation 66 ml/min; Estimated Glomerular Filt Rate > 60; Glucose 138 mg/dL (70-99); Magnesium 1.8 mg/dL (1.8-2.4); Osmolality Calculated 295 mOsm/kg (285-295); Potassium 3.9 mmol/L (3.5-5.1); Sodium 142 mmol/L (136-145); Total Protein 7.3 g/dL (6.4-8.2); Troponin I 4.9 ng/L (0.00-60.4)
--- NOTE | 2023-11-24 13:45 | PC.NURSE ---
patient being transported to ct via stretcher
--- NOTE | 2023-11-24 14:37 | PC.NURSE ---
ER provider at the bedside
--- NOTE | 2023-11-24 14:44 | PC.NURSE ---
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 getting dressed. waiting on discharge instructions
== END 2023-11-24 15:00 | disposition home or self-care (01) ==
PROVIDERS: Emergency Provider Emergency Medicine; PCP Internal Medicine Gastroenterology
DX: R07.89 Other chest pain (principal); K21.9 Gastro-esophageal reflux disease without esophagitis; F31.9 Bipolar disorder, unspecified
CPT/HCPCS: 36415; 71045; 71275; 80053; 82550; 83735; 84484; 85025; 85380; 93005; 99284; A9270; Q9967

== ENCOUNTER 2024-04-15 17:20 | Emergency (ER) | payer OTHER, SELFPAY ==
--- NOTE | ~2024-04-15 | CT_ITS ---
CT abdomen pelvis w con Ordering provider: Anil Walter MD History: 59 years Female with . Blood in stool/nausea/sob x3 days . Comparison: None. Technique: CT abdomen and pelvis with IV and without oral contrast. Automated exposure control and it erative reconstruction technique were employed. The dose-length product was 773.34 mGy-cm. 100 mL Omn ipaque 350 was given IV. Findings: VISUALIZED LOWER CHEST: Minimal dependent atelectasis in the left lung base. UPPER ABDOMINAL ORGANS: Liver: Mild hepatomegaly. Gallbladder: Normal. Spleen: Normal. Stomach/duodenum: Slightly thickened wall of the stomach. Clinical correlation advised. Pancreas: Normal. Adrenals: Normal. Kidneys: Normal. PELVIC ORGANS: The bladder shows slightly thickened wall.. BOWEL AND MESENTERY: Colon: No evidence of diverticulitis.. No definite active bleeding seen. Normal appendix. Small Bowel: Normal. No obstruction. Peritoneum/mesentery: No free air or free fluid. No mesenteric lymphadenopathy. RETROPERITONEUM: Mild atheromatous disease of the abdominal aorta. Slight dilatation of the distal a aziza measuring 3 cm. No retroperitoneal lymphadenopathy. MUSCULOSKELETAL: Superficial soft tissues: The superficial soft tissues are normal. Bones: Age appropriate degenerative changes of the spine. IMPRESSION: 1. No evidence of acute appendicitis, diverticulitis or intestinal obstruction. No definite active b leeding seen in the colon. 2. Slight dilatation of the distal aorta. 3. Slightly thickened wall of the stomach. Clinical evaluation advised 4. Borderline hepatomegaly. Reviewed, dictated and finalized at location A. IMPRESSION: 1. No evidence of acute appendicitis, diverticulitis or intestinal obstruction . No definite active bleeding seen in the colon. 2. Slight dilatation of the distal aorta. 3. Slightly thickened wall of the stomach. Clinical evaluation advised 4. Borderline hepatomegaly.
[2024-04-15 17:24] VITALS: BP 151/74; PULSE 86; RESP 18; TEMP 36.4; O2SAT 98
--- NOTE | 2024-04-15 17:42 | ECG_ITS ---
Test Date: 2024-04-15 17:56:19 Measurements Intervals [place] Rate: 68 P: 31 WY: 162 QRS: 3 QRSD: 90 T: 43 QT: 393 QTc: 421 Interpretive Statements SINUS RHYTHM INCOMPLETE RIGHT BUNDLE BRANCH BLOCK DELAYED PRECORDIAL R/S TRANSITION BASELINE ARTIFACT- I, II, AVR, AVL, AVF BORDERLINE ECG No previous ECG available for comparison Electronically Signed On 04-15-2024 20:03:04 CDT by Bentley Blanc D.O.
[2024-04-15 17:47] LABS: Occult Blood Positive (Negative)
[2024-04-15 17:52] VITALS: BP 129/55; PULSE 76; RESP 18; O2SAT 96
[2024-04-15 17:58] LABS: Basophils Absolute Auto 0.01 K/mm3 (0.00-0.10); Basophils Percent Auto 0.1 % (0.0-1.0); Eosinophils Absolute Auto 0.29 K/mm3 (0.02-0.50); Eosinophils Percent Auto 3.4 % (1.0-6.0); Hematocrit 37.6 % (35.0-49.0); Hemoglobin 12.2 g/dL (12.0-15.0); Immature Granulocyte Absolute 0.02 K/mm3 (0.00-0.00); Immature Granulocyte Percent A 0.2 % (0.0-0.0); Lymphocytes Absolute Auto 2.95 K/mm3 (1.10-4.50); Lymphocytes Percent Auto 34.4 % (18.0-42.0); Mean Corpuscular HGB Conc 32.4 g/dL (32-36); Mean Corpuscular Hemoglobin 29.8 pg (27.0-31.0); Mean Corpuscular Volume 91.7 fL (78.0-102.0); Mean Platelet Volume 8.5 fl (9.2-11.8); Monocytes Absolute Auto 0.31 K/mm3 (0.10-0.90); Monocytes Percent Auto 3.6 % (2.0-11.0); Neutrophils Percent Auto 58.3 % (50.0-70.0); Platelet Count Result 248 K/mm3 (150-420); Red Cell Distribution Width 13.7 % (11.6-14.4); White Blood Count 8.6 K/mm3 (4.8-10.8)
[2024-04-15] MEDS: PANTOPRAZOLE SODIUM IV 40 MG VIAL 80 MG IV PUSH (18:08)
[2024-04-15] MEDS: SODIUM CHLORIDE 0.9% IV 1,000 ML 999 ML IV CONT (18:09)
[2024-04-15 18:10] LABS: Ammonia < 10 umol/L (11-32); CRP < 0.5 mg/dL (0.0-0.9)
[2024-04-15 18:11] LABS: INR 0.9; Partial Thromboplastin Time 24.8 Sec (23.9-30.70); Prothrombin Time 9.8 Seconds (9.50-12.1)
[2024-04-15 18:13] LABS: Alanine Aminotransferase 13 U/L (14-59); Albumin Level 3.3 g/dL (3.4-5.0); Alkaline Phosphatase 101 U/L (46-116); Anion Gap 8 mmol/L (4-12); Aspartate Amino Transferase 14 U/L (15-37); Bilirubin,Total 0.4 mg/dL (0.00-1.00); Blood Urea Nitrogen 8 mg/dL (7-18); Calcium 8.9 mg/dL (8.5-10.1); Carbon Dioxide 27 mmol/L (21-32); Chloride 103 mmol/L (98-108); Estimated CRCL calculation 73 ml/min; Estimated Glomerular Filt Rate > 60; Glucose 104 mg/dL (70-99); Lipase 34 U/L (16-77); Osmolality Calculated 284 mOsm/kg (285-295); Potassium 3.7 mmol/L (3.5-5.1); Sodium 138 mmol/L (136-145)
[2024-04-15 18:16] LABS: Lactic Acid Reflex 0.8 mmol/L (0.4-2.0)
--- NOTE | 2024-04-15 19:06 | ED.GIBLEED ---
HPI - GI Bleed General Chief complaint: GI Bleed Stated complaint: rectal bleeding Time Seen by Provider: 04/15/24 17:42 Source: patient and family Mode of arrival: ambulatory Limitations: no limitations History of Present Illness HPI Narrative: this is a 59-year-old female that presents with some rectal clotting with some episode of dark stools, the patient has a history of CAD and recently started on a small baby aspirin as a history of hyperlipidemia and has recently at warms for breast cysts that were removed. Patient has some vitals are stable patient has no shortness of breath no chest pain no abdominal pain and currently no overt rectal bleeding. There is no nausea or vomiting no fever chills. MD complaint: gross hematochezia Onset (ago): day(s) Pain Consistency: intermittent Severity: mild Related Data Home Medications Medication Instructions Recorded Confirmed gabapentin 600 mg tablet 600 mg PO TID 07/23/22 04/15/24 lithium carbonate 300 mg capsule 300 mg PO BID 07/23/22 04/15/24 quetiapine 50 mg tablet 50 mg PO QHS 07/23/22 04/15/24 sertraline 100 mg tablet 100 mg PO TID 07/23/22 04/15/24 aspirin 81 mg capsule 81 mg PO DAILY 04/15/24 04/15/24 ezetimibe 10 mg tablet 10 mg PO DAILY 04/15/24 04/15/24 pantoprazole 40 mg tablet,delayed 40 mg PO DAILY 04/15/24 04/15/24 release propranolol 10 mg tablet 10 mg PO DAILY 04/15/24 04/15/24 Allergies Allergy/AdvReac Type Severity Reaction Status Date / Time adhesive tape Allergy Severe BLISTERS Verified 07/23/22 10:30 ferrous fumarate Allergy Severe HIVES, SOB Verified 07/23/22 10:30 folic acid Allergy Severe HIVES, SOB Verified 07/23/22 10:30 morphine Allergy Severe IRRITABILIT Verified 07/23/22 10:30 Y vit,tx Allergy Severe HIVES, SOB Verified 07/23/22 10:30 calc,iron,folic acd(less thn 1 mg) vitamins with Allergy Severe HIVES, SOB Verified 07/23/22 10:30 calcium Tmjcgfe-UFI-EjX Reductase Allergy Severe DECREASED Verified 07/23/22 10:30 Inhibitor KIDNEY [Tbgxyiq-Vcs-Ouz Reductase FUNCTION Inhibitor] Review of Systems Review of Systems: All systems reviewed & are unremarkable except as noted in HPI and below PMFSH Past Medical History Medical History Bipolar 1 disorder section wound complication Chronic diarrhea Surgical History Surgical History H/O: hysterectomy Social History Social History Social History: nonsmoker. Nonalcoholic. No drug use. Exam Const: General: healthy appearing and no acute distress Chest: Chest palpation & inspection: normal inspection of the chest Resp: Effort & Inspection: normal respiratory effort Auscultation: clear to auscultation bilaterally Cardio: Rate: regular rate Rhythm: regular rhythm GI: GI Palp: Yes Soft to palpation Auscultation: normal bowel sounds : General: Yes bladder normal to palpation Other: Rectal exam and hospital internal hemorrhoids and did have a positive stool guaiac. Skin: General skin exam: normal color Rashes: no rashes Neuro: General: patient oriented x3 and moves all extremities Extrem: General: normal to inspection Course Course Emergency Course: Patient had a positive stool guaiac with internal hemorrhoids, 9 CV diet fluids and her H&H was 12 and 37 platelets 248 PT INR and PTT within normal range, EKG performed shows normal sinus rhythm CT scan performed reviewed. Vital Signs Vital signs: Vital Signs Temperature 36.4 C L 04/15/24 17:24 Pulse Rate 86 04/15/24 17:24 Respiratory Rate 18 04/15/24 17:24 Blood Pressure 151/74 H 04/15/24 17:24 Pulse Oximetry 98 04/15/24 17:24 Oxygen Delivery Room Air 04/15/24 17:24 Temperature 36.4 C L 04/15/24 17:24 Pulse Rate 76 04/15/24 17:52 Respiratory Rate 18
[2024-04-15 19:29] VITALS: BP 151/86; PULSE 67; RESP 18; TEMP 36.6; O2SAT 96
== END 2024-04-15 19:29 | disposition home or self-care (01) ==
PROVIDERS: Emergency Provider Emergency Medicine; PCP Internal Medicine Gastroenterology
DX: K64.9 Unspecified hemorrhoids (principal); I25.10 Atherosclerotic heart disease of native coronary artery without angina pectoris; Z79.82 Long term (current) use of aspirin; E78.5 Hyperlipidemia, unspecified; Z79.899 Other long term (current) drug therapy
CPT/HCPCS: 36415; 74177; 80053; 82140; 82272; 83605; 83690; 85025; 85610; 85730; 86140; 93005; 96361; 96374; 99284; J2470; J7030; Q9967

== ENCOUNTER 2024-05-19 12:15 | Outpatient (CLI) | payer OTHER, SELFPAY ==
--- NOTE | ~2024-05-19 | XR_ITS ---
AP view of the pelvis and AP and lateral views of the left hip Clinical history: Pain Findings: No acute fracture or dislocation is seen. Osseous alignment is anatomic. Bilateral hip and SI joint spaces are preserved. Soft tissues are unremarkable. Impression: No significant abnormality is seen. Reviewed, dictated and finalized at location . Impression: No significant abnormality is seen.
== END 2024-05-19 12:16 | disposition home or self-care (01) ==
LOC: CHSIMG 12:17
PROVIDERS: PCP Internal Medicine Gastroenterology; Visit Provider Physician Assistant Medical
DX: M25.552 Pain in left hip (principal)
CPT/HCPCS: 73502

== ENCOUNTER 2024-06-01 10:40 | Outpatient (CLI) | payer OTHER, SELFPAY ==
[2024-06-01 11:59] LABS: Cholesterol 337 mg/dL (0-200); HDL Direct 31 mg/dL (40-60); LDL Cholesterol Calculated 243 mg/dL (<130); LDL Cholesterol Direct 230 mg/dL (0-130); Triglycerides 316 mg/dL (0-150)
== END 2024-06-01 10:41 | disposition home or self-care (01) ==
LOC: CHSLAB 10:44
PROVIDERS: PCP Internal Medicine Gastroenterology
DX: I25.10 Atherosclerotic heart disease of native coronary artery without angina pectoris (principal); E78.5 Hyperlipidemia, unspecified; Z82.49 Family history of ischemic heart disease and other diseases of the circulatory system
CPT/HCPCS: 36415; 80061; 83721

== ENCOUNTER 2024-09-12 10:35 | Outpatient (CLI) | payer OTHER, SELFPAY ==
[2024-09-12 11:16] LABS: Cholesterol 170 mg/dL (0-200); HDL Direct 40 mg/dL (40-60); LDL Cholesterol Calculated 100 mg/dL (<130); Triglycerides 148 mg/dL (0-150)
--- OUTSIDE RECORDS SUMMARY | 2024-09-12 12:30 | XMS_ITS | Clinical Summary ---
Author Organization [facility] Address [address] [place] [id number] Care Team Providers Care Tour Escort Name Role Phone Unavailable Primary Care Provider Unavailabl e Social History Tobacco Use Types Packs/Day Years Used Date Smoking Tobacco: Never Assessed Comments Unknown Sex and Gender Information Value Date Recorded Sex Assigned at Not on file Legal Sex Female 4:53 PM CDT Gender Identity Not on file Sexual Orientation Not on file Plan of Treatment Health Maintenance Due Date Last Done Comments Cervical Cancer Screening Pa p Smear (Age 30 to 64) Every 3 Years 1965 Colorectal Cancer Screening Colonoscopy (10 Years) 1965 Annual Physical 01/30/1968 Hepatitis C 1983 DTaP, Tdap and Td Vaccines ( 1 - Tdap) 01/30/1984 Cervical Cancer Screening Pa p with HPV Testing (Age 30 to 64) Every 5 Years 1995 Cervical Cancer Screening with HPV 1995 Mammogram Screening 2005 Zoster Vaccines (1 of 2) 2015 COVID-19 Vaccine (2023-2 5 season) 2024 Influenza Adult (#1) 2024 Meningococcal B Vaccine Aged Out No l onger eligible based on patient's age to complete this topic Meningococcal Vaccine Aged Out No gail franc eligible based on patient's age to complete this topic Pneumococcal Vaccine: Pediat rics (0 to 5 Years) and At-Risk Patients (6 to 64 Years) Aged Out No longer eligible b ased on patient's age to complete this topic RSV Immunizations Under 20 Months Aged Out No longer eligible based on patient's age to complete this topic
--- OUTSIDE RECORDS SUMMARY | 2024-09-12 12:30 | XMS_ITS | CONTINUITY OF CARE DOCUMENT ---
Author Name florenciakaterinaluz maria Address Unknown Organization [facility] Address [address] [address] [facility] [facility] [address] [place] [address] Phone [phone] Care Team Providers Care Collar Setter Overlock Name Role Phone Jefferson GAINES, Bakari Alvarado Unavailable [phone] MARCELO GAINES, NARDESMOND R Unavailable [phone] NADEEM ROSS MD Unavailable PROBLEMS Condition Status Date Provider Notes Family History of Hypertension: active Johann n Kyte Family History of Hypertension: active Johann n Kyte Chest pain active Mal Kyte Chest pain-type to be determined active Keith in Kyte Anxiety situational active Mal Kyte Abnormal electrocardiogram active Mal Kyt e Snoring active Mal Kyte Palpitations active Mal Kyte SLEEP APNEA active Bakari Paulino MD Hypercholesterolemia active Bakari lui MD ENCOUNTERS Date Type Provider Location Encounter Diag nosis - In-person encounter Office Visit Bakari Paulino MD [facility] Hypercholesterolemia - In-person encounter Office Visit Bakari Paulino MD [facility] SLEEP APNEA - In-person encounter Office Visit Bakari Paulino MD [facility] Family History of Hypertension:Family History of Hypertension:Chest painChest pain-type to be determinedAnxiety situationalAbnormal electrocardiogramSnoringPalpitations VITAL SIGNS Date Observation Value Provider Body Mass Index (Ratio) 33.89 kg/m2 Armando Paulino MD respiratory rate E&M 16 /min [facility] pulse rate 83 /min [facility] oxygen saturation, oximetry 96 % [facility] weight E&M 210 [lb_av] [facility] height E&M 66 [in_i] [facility] Body Mass Index (Ratio) 33.57 kg/m2 Armando Paulino MD blood pressure, diastolic 70 mm[Hg] Er ever Avalos blood pressure, systolic 110 mm[Hg] Lady jeremie Avalos oxygen saturation, oximetry 98 % Shazia Avalos pulse rate 66 /min Shazia Kaiser blood pressure, resting No Yoandy a Robbie weight E&M 208 [lb_av] Shazia Merline Kaiser height E&M 66 [in_i] Shazia Merline Kaiser Body Mass Index (Ratio) 34.12 kg/m2 Johann Kowalski blood pressure, diastolic 60 mm[Hg] Ursula Larios blood pressure, systolic 98 mm[Hg] Sara Larios oxygen saturation, oximetry 98 % Arpit Larios respiratory rate E&M 18 /min Carissa Larios pulse rate 69 /min Arpit sanz weight E&M 211.4 [lb_av] Arpit walton height E&M 66 [in_i] Arpit sanz ALLERGIES Allergy Name Onset Date Reaction Criticality Status BOTOX High Criticality active STATIN DRUGS High Criticality active LATEX High Criticality active HISTORY OF MEDICATION USE Medication Status Instructions Dates Provider Indications Com ments ZIPRASIDONE HCL CAPSULE active 1 tab once daily Arpit Larios SERTRALINE HCL TABLET active 1 tab once daily Arpit Larios RANITIDINE HCL 150 MG ORAL TABLET active ONE TAB TWICE DAILY Arpit Larios LITHIUM CARBONATE TABLET active 2 tabs twice daily Arpit Larios GABAPENTIN 100 MG ORAL CAPSULE active 1 tab 3 times daily Arpit Larios SOCIAL HISTORY Date Observation Value Provider social history E&M S moking History: Paxton campo is a former smoker. Bakari Paulino MD social history reviewed E&M revi ewed - no changes required Bakari Paulino MD smoking, year quit 2014 Tonsha Mo ss number of years as a smoker 39 a Tonsha Pineda cigarette use yes Tonsha Pineda smoking status Former smoker Tons Pineda social history E&M S moking History: Paxton campo is a former smoker. Bakari Paulino MD social history reviewed E&M revi ewed - no changes required Bakari Paulino MD smoking, year quit 2014 Shazia vergara-Job number of years as a smoker 39 a Shazia Avalos cigarette use yes Shazia Back smoking status Former smoker Shazia Vanceins on-Job social history E&M S moking History: Paxton campo is a former smoker. Mal Kowalski social history reviewed E&M revi ewed - no changes required Mal Kowalski number of grandchildren Bakari Paulino MD number of years as a smoker 39 a Arpit Larios smoking, year quit 2014 Arpit Larios cigarette use yes Arpit walton smoking status Former smoker Arpit St terence FAMILY HISTORY Family Member Condition Father Family History of Di abetes: Father Family History of Hy pertension: Mother Family History of Hy pertension: Full Sister Family History of Di abetes: Father Family History of Co ronary Artery Disease: Father Family History of Di abetes: Mother Family History of Co ronary Artery Disease: INSURANCE PROVIDERS Payer name Policy type / Coverage type Tom red republican [id number] MEDICAID (2) Medicaid [id number] ADVANCE DIRECTIVES Name Date DISCUSSED - NO DECISION MADE TREATMENT PLAN Date Name Performer Cardiology:Will che k lipid panel. Cannot tolerate statins, developed renal failure from them. Bakari Paulino MD Cardiology: o n multiple med rx. see psych Bakari Paulino MD Cardiology: N uclear stress ESummary 1 . Myocardial scintigraphy is normal without evidence for previous myocardial infarction or reversible ischemia. 2 . Normal left ventricular size and function with a calculated ejection fraction of 63%. 3 . Normal Edgar protocol exercise tolerance test. Bakari Paulino MD Cardiology: E cho Conclusions: 1 . Normal left ventricular systolic function. Normal left ventricular size. Normal left ventricular wall thickness. Left ventricular e jection fraction is measured at 60 %. 2 . Normal appearing mitral valve leaflets. There is trace physiologic mitral valve regurgitation. 3 . Normal appearing tricuspid valve leaflets. There is trace physiologic tricuspid valve regurgitation. IVC is normal in size with n ormal respiratory response. Unable to adequately assess the RVSP. 4 . Normal pericardium with no pericardial or pleural effusion. 5 . Normal aortic root size. Bakari Paulino MD Cardiology:Started u sing CPAP and notices improvement. Bakari Paulino MD Cardiology:moderate ROXANNE. needs t itration study Bakari Paulino MD Cardiology:no afib Bakari oleary MD Cardiology:Echo Conc lusions: 1 . Normal left ventricular systolic function. Normal left ventricular size. Normal left ventricular wall thickness. Left ventricular e jection fraction is measured at 60 %. 2 . Normal appearing mitral valve leaflets. There is trace physiologic mitral valve regurgitation. 3 . Normal appearing tricuspid valve leaflets. There is trace physiologic tricuspid valve regurgitation. IVC is normal in size with n ormal respiratory response. Unable to adequately assess the RVSP. 4 . Normal pericardium with no pericardial or pleural effusion. 5 . Normal aortic root size. Bakari Paulino MD Cardiology:Nuclear s tress ESummary 1 . Myocardial scintigraphy is normal without evidence for previous myocardial infarction or reversible ischemia. 2 . Normal left ventricular size and function with a calculated ejection fraction of 63%. 3 . Normal Edgar protocol exercise tolerance test. Bakari Paulino MD Cardiology:check home sleep stud y. Bakari Paulino MD Cardiology:may be re lated to anxiety disorder. does not recall if had palps during event. will give heart monitor. Bakari Paulino MD Cardiology:will obta in noninvasive workup. evaluate for ischemia and echo. had negative CT PE. Bakari Paulino MD Cardiology:on multiple med rx. s ee psych Bakari Paulino MD Date Name [place] (Eskalith), Serum [place] (Eskalith), Serum CBC (INCLUDES DIFF/P LT) HEMOGLOBIN A1c LIPID PANEL B TYPE NATRIURETIC P EPTIDE (BNP) COMPREHENSIVE METABO LIC PANEL, W/EGFR Sleep Study Titratio n Sleep Study Home Holter Monitor 48 hr Stress Exercise Card iolite Complete Echo HISTORY OF PROCEDURES Procedure Date Procedure Name Provider Procedure Notes S tatus EKG Bakari Paulino MD compl eted EKG Bakari Paulino MD compl eted Cardiolite, 2 units Bakari Paulino MD completed SPECT Images Bakari Paulino MD com pleted Stress EKG Bakari Paulino MD compl eted Holter, 24 or 48 Bakari Paulino MD completed EKG Bakari Paulino MD compl eted
--- OUTSIDE RECORDS SUMMARY | 2024-09-12 12:30 | XMS_ITS | Encounter Summary ---
Author Organization [facility] Address [facility] [place] [address] Care Team Providers Care Electroneurodiagnostic Technologist Name Role Phone Unavailable Primary Care Provider Unavailabl e Encounter Details Date Type Department Care Team (Late st Contact Info) Description 12/24/2018 Abstract SFL CONVERSION [address] [place] [address] , Generic Conversion, Social History Tobacco Use Types Packs/Day Years Used Date Smoking Tobacco: Never Assessed Comments Unknown Sex and Gender Information Value Date Recorded Sex Assigned at Not on file Legal Sex Female 4:53 PM CDT Gender Identity Not on file Sexual Orientation Not on file documented as of this encounter Plan of Treatment Not on file documented as of this encounter Visit Diagnoses Not on filedocumented in this encounter
--- OUTSIDE RECORDS SUMMARY | 2024-09-12 12:30 | XMS_ITS | Referral Summary ---
Author Organization [facility] Address [address] [place] [address] Care Team Providers Care Door Repairer Bus Name Role Phone Mabel Ivan MD Primary Care Provider Encounters Date Type Department Care Team Description 09/07/2024 Telephone [facility] Office Building [address] [place] [address] Juan Luis Martínez MD 09/05/2024 Telephone [facility] Office Building [address] [place] [address] Hayden Portillo, CHATA Med Refill 08/18/2024 Telephone [facility] [address] [facility] Advanced Medicine 8th [place] [address] [place] [phone] Juan Luis Martínez MD 08/18/2024 8:00 AM [facility] - 08/18/2024 9:40 AM DISTILLING DEPARTMENT SUPERVISOR Surgery [facility] [address] [phone] Robin Holliday MD LEFT HEART CATHETERIZATION WITH CORONARY ANGIOGRAPHY AND WITH OR WITHOUT LEFT VENTRICULOGRAM [id number] 08/18/2024 6:17 AM DISTILLING DEPARTMENT SUPERVISOR - 08/18/2024 12:36 PM DISTILLING DEPARTMENT SUPERVISOR Hospital Encounter [facility] [address] [place] [phone] Robin Holliday MD TIWARI (dyspnea on exertion); Chest pain, unspecified type; Family history of early CAD; Abnormal finding on CT scan Discharge Disposition: Discharge to home or self care 08/14/2024 Research Med Pick-Up/CTRU Signal Repairer [facility] 1 [place] [address] Juan Luis Martínez MD Abnormal CT scan of heart (Primary Dx) 08/14/2024 9:54 AM DISTILLING DEPARTMENT SUPERVISOR - 08/14/2024 11:59 PM DISTILLING DEPARTMENT SUPERVISOR Hospital Encounter [facility] [place] [address] scan of heart Discharge Disposition: Discharge to home or self care 08/07/2024 Telephone [facility] [place] [address] No, Physician 08/04/2024 Orders Only [facility] [place] [address] Juan Luis Martínez MD Abnormal CT scan of heart (Primary Dx) 08/04/2024 12:45 PM DISTILLING DEPARTMENT SUPERVISOR Lab [facility] [address] [place] [address] [place] [address] [place] [address] Hyperlipidemia, unspecified hyperlipidemia type; TIWARI (dyspnea on exertion); Coronary arteriosclerosis 08/04/2024 Telephone [facility] [address] [place] [address] [place] [address] [place] [address] Juan Luis Martínez MD 08/04/2024 11:30 AM DISTILLING DEPARTMENT SUPERVISOR Office Visit [facility] [address] [place] [address] [place] [address] [place] [address] Juan Luis Martínez MD Hyperlipidemia, unspecified hyperlipidemia type (Primary Dx); TIWARI (dyspnea on exertion); Coronary arteriosclerosis 08/03/2024 9:45 AM DISTILLING DEPARTMENT SUPERVISOR Office Visit [facility] [address] [facility] Floor 8 [place] [phone] Nery Anne MD PhD Encounter for postoperative wound check (Primary Dx); Periductal mastitis of right breast; Breast abscess; Hx of benign breast biopsy 07/26/2024 3:00 PM DISTILLING DEPARTMENT SUPERVISOR - 07/26/2024 4:30 PM DISTILLING DEPARTMENT SUPERVISOR Surgery [facility] Operating Room [id number] [place] [phone] Nery Anne MD PhD RIGHT BREAST EXCISIONAL BIOPSY 07/26/2024 4:35 PM DISTILLING DEPARTMENT SUPERVISOR Anesthesia Event [facility] Operating Room [id number] [place] [id number] Jan Thapa MD Eldin, Ali S., MD 07/26/2024 12:44 PM DISTILLING DEPARTMENT SUPERVISOR - 07/26/2024 6:48 PM DISTILLING DEPARTMENT SUPERVISOR Hospital Encounter [facility] Operating Room [id number] [place] [id number] Nery Anne MD PhD Breast abscess Discharge Disposition: Discharge to home or self care 07/25/2024 Telephone [facility] [address] [place] [phone] Rama Elliott [facility] Surgery Confirmation 07/17/2024 Telephone [facility] [address] [place] [phone] Nery Anne MD PhD 07/09/[address] Orders [address] [facility] Surgeon 1 [place] [address] Dorina Chino MD Breast abscess (Primary Dx) 07/06/2024 2:00 PM DISTILLING DEPARTMENT SUPERVISOR - 07/06/2024 11:59 PM DISTILLING DEPARTMENT SUPERVISOR Hospital Encounter [facility] [place] [facility] [address] [place] [address] 8 [place] [address] Disorder of breast; Abscess of breast Discharge Disposition: Discharge to home or self care 07/06/2024 1:45 PM DISTILLING DEPARTMENT SUPERVISOR Office Visit [facility] [address] [place] [phone] Nery Anne MD PhD Breast abscess (Primary Dx); Periductal mastitis of right breast; Abnormal finding on breast imaging from Last 3 Months Allergies Active Allergy Reactions Criticality Noted Date Comments Adhesive Other (See comments),Rash Medium 07/06/2024 Reaction: Ascorbic Acid Anaphylaxis High 09/15/2015 Anaphylaxis Copper Anaphylaxis High 09/15/2015 Anaphylaxis Folic Acid Anaphylaxis High 09/15/2015 Anaphylaxis Hydroxyzine Other (See comments) Low 07/06/2024 Iron Anaphylaxis High 09/15/2015 Anaphylaxis Niacinamide Anaphylaxis High 09/15/2015 Anaphylaxis Onabotulinumtoxina Other (See comments),Muscle pain High 03/24/2019 Flu Like symptoms Pnv Cmb#95-Ferrous Fumarate-Fa Other (See comments) Low 07/06/2024 Reaction: Kttyjnyv-Rfd-Oo-Fa Hives,Other (See comments) High 07/06/2024 Vitamins Unknown 12/21/2023 -2 Unknown 07/06/2024 Pyridoxine Anaphylaxis High 09/15/2015 Anaphylaxis Riboflavin (Vit B2) Phosphate Anaphylaxis High 09/15/2015 Anaphylaxis Senior Vitamin B-12 Anaphylaxis High 09/15/2015 Anaphylaxis Wvjufxw-Lwu-Vzc Reductase Inhibitors Other (See comments),Stomach upset,Unknown High 03/24/2019 Decreased Kidney function Thiamine Hcl Anaphylaxis High 09/15/2015 Anaphylaxis Vitamin A Anaphylaxis High 09/15/2015 Anaphylaxis Vitamin E Anaphylaxis High 09/15/2015 Anaphylaxis Zinc Anaphylaxis High 09/15/2015 Anaphylaxis Medications sertraline (ZOLOFT) 100 mg tablet Take 1 tablet (100 mg total) by mouth daily Active QUEtiapine (SEROquel) 50 mg tablet Take 1 tablet (50 mg total) by mouth 2 (two) times a day Active propranoloL (INDERAL) 10 mg tablet Take 1 tablet (10 mg total) by mouth daily as needed (anxiety) 024 Active lithium ER (ESKALITH) 450 mg CR tablet Take 1 tablet (450 mg total) by mouth daily Active gabapentin (NEURONTIN) 600 mg tablet Take 1 tablet (600 mg total) by mouth 3 (three) times a day 024 Active aspirin 81 mg chewable tablet Take 1 tablet (81 mg total) by mouth daily 90 tablet 3 024 2024 Active ezetimibe (ZETIA) 10 mg tablet Take 1 tablet (10 mg total) by mouth daily 90 tablet 3 024 Active melatonin 10 mg tablet Take 4 tablets (40 mg total) by mouth nightly Active omeprazole (PriLOSEC) 40 mg capsule Take 1 capsule (40 mg total) by mouth daily Active oxyCODONE-acetam inophen (PERCOCET) 5-325 mg per tabletIndication s:Pain Take 1 tablet by mouth every 4 (four) hours as needed for pain 8 tablet Active docusate sodium (COLACE) 100 mg capsuleIndicatio ns:constipation Take 1 capsule (100 mg total) by mouth 2 (two) times a day with a glass of water 8 capsule Active hydrOXYzine (ATARAX) 50 mg tablet 1 tablet (50 mg total) Active acetaminophen-co deine (TYLENOL with CODEINE #3) 300-30 mg per tablet Take 1-2 tablets by mouth every 4 (four) hours as needed for pain 30 tablet Active Additional Information Patient not taking.Reported on 08/04/2024 amLODIPine (NORVASC) 5 mg tablet Take 0.5 tablets (2.5 mg total) by mouth daily 45 tablet 3 025 2025 Active tirzepatide (Mounjaro) 2.5 mg/0.5 mL pen injector injection Inject 0.5 mL (2.5 mg total) under the skin once a week 2 mL 1 Active evolocumab 140 mg/mL pen injectorIndicati ons:atherosclero tic cardiovascular disease Inject 1 mL (140 mg total) under the skin every 14 (fourteen) days 6 mL 3 025 2025 Active evolocumab (REPATHA) syringe syringe Inject 1 mL (140 mg total) under the skin every 14 (fourteen) days 6 mL 2 024 2024 Discontinued semaglutide 0.25 mg or 0.5 mg (2 mg/3 mL) pen injector injection Inject 0.25 mg under the skin once a week Semaglutide dose escalation is as follows: Weeks 1 through 4: 0.25 mg subcutaneously once a week. Weeks 5 through 8: 0.5 mg subcutaneously once a week. Weeks 9 through 12: 1 mg subcutaneously once a week. Weeks 13 through 16: 1.7 mg subcutaneously once a week Weeks 17 and onwards: 2.4 mg subcutaneously once a week (full dose) 1.5 mL 11 025 2024 Discontinued(A lternate therapy) Hospital, Clinic, or Other Facility Administered Medication Ordered Dose Route Frequency Start Date End Date Status INV-[facility] metoprolol () 5 mg/5 mL injection 5 mgIndications:Abnorma l CT scan of heart 5 mg IV Every 10 min PRN 08/14/2024 Active INV-[facility] nitroglycerin () 400 mcg/spray translingual aerosol/spray 2 sprayIndications:Abno rmal CT scan of heart 2 spray SL Once 08/14/2024 08/15/2024 End ed Active Problems Problem Noted Date Diagnosed Date TIWARI (dyspnea on exertion) 08/04/2024 Chest pain 08/04/2024 Family history of early CAD 08/04/2024 Breast abscess 07/24/2024 Coronary artery disease due to calcified coronar y lesion 03/24/2024 Breast pain 03/23/2024 Assessment & Plan (03/24/2024 2:57 PM CDT): Patient presents with right breast pain x [address] chest with Ill-defined focus of fat stranding in the right subareolar fat, which can be seen in fat necrosis or developing phlegmon. No CT evidence of organized/drainable collection. On exam small mass noted with slight erythema - Surgery consulted in ED recommended IR consult for drainage/biopsy. - Breast radiology - Bilateral diagnostic mammogram: BI-RADS Category 3, probably benign - R breast US: BI-RADS Category 3, benign - Recommending 3 month follow up as looks as though mass is shrinking, patient aware - US R breast ordered, patient will schedule - No biopsy needed - Patient received cefazolin in ED. Started Bactrim per surgery recommendations - Will send home on a 10 day course - Pain control with prn tylenol, Toradol and oxycodone Neuropathy 03/23/2024 Assessment & Plan (03/23/2024 3:55 PM CDT): Continue home gabapentin Depression 03/23/2024 Assessment & Plan (03/23/2024 3:56 PM CDT): - Continue home meds- Silsbee, Seroquel, and Zoloft. - Silsbee level ordered with am labs Abnormal finding on CT scan 03/23/2024 Assessment & Plan (03/24/2024 3:45 PM CDT): CT also noted coronary artery atherosclerosis involving the left anterior descending and right coronary arteries is noted. Consider outpatient cardiovascular referral. - Outpatient cards referral placed - ASA - Allergy to statin ( kidneys ) Abscess of breast 06/18/2015 Disorder of breast 11/30/2013 Social History Tobacco Use Types Packs/Day Years Used Date Smoking Tobacco: Former Vaping Smokeless Tobacco: Never Tobacco Cessation:Counseling Given: Not Answered Alcohol Use Standard Drinks/Week Comments Yes 0 (1 standard drink = 0.6 oz pur e alcohol) socially AUDIT-C Answer Date Recorded Q1: How often do you have a drink containing alc ohol? Monthly or less 08/18/2024 Q2: How many drinks containi ng alcohol do you have on a typical day when you are drinking? 1 or 2 08/18/2024 Q3: How often do you have si x or more drinks on one occasion? Never 08/18/2024 Personal Safety Answer Date Recorded Have you ever been in or are you currently in a harmful physical or emotional relationship or is someone making you feel afraid or unsafe? Denies 08/18/2024 Comments No Sex and Gender Information Value Date Recorded Sex Assigned at Not on file Legal Sex Female 9:00 PM DISTILLING DEPARTMENT SUPERVISOR Gender Identity Female 03/25/2024 4:16 PM CDT Sexual Orientation Not on file Last Filed Vital Signs Vital Sign Reading Time Taken Comments Blood Pressure 107/52 08/18/2024 11:45 AM DISTILLING DEPARTMENT SUPERVISOR Pulse 73 08/18/2024 11:45 AM DISTILLING DEPARTMENT SUPERVISOR Temperature 36.9 C (98.4 F) 08/18/2024 6:40 AM DISTILLING DEPARTMENT SUPERVISOR Respiratory Rate 28 08/18/2024 11:45 AM DISTILLING DEPARTMENT SUPERVISOR Oxygen Saturation 95% 08/18/2024 11:45 AM DISTILLING DEPARTMENT SUPERVISOR Inhaled Oxygen Concentration - - Weight 86.2 kg (190 lb 0.6 oz) 08/18/2024 6:40 A M DISTILLING DEPARTMENT SUPERVISOR Height 167.6 cm (5' 6 ) 08/18/2024 6:40 AM DISTILLING DEPARTMENT SUPERVISOR Body Mass Index 30.67 08/18/2024 6:40 AM DISTILLING DEPARTMENT SUPERVISOR Plan of Treatment Not on file Procedures Procedure Name Priority Date/Time Associated Diagnosis Comments LEFT HEART CATHETERIZATION WITH CORONARY ANGIOGRAPHY AND WITH AND WITHOUT LEFT VENTRICULOGRAM Routine 08/18/2024 9:03 AM DISTILLING DEPARTMENT SUPERVISOR TIWARI (dyspnea on exertion) Chest pain, unspecified type Family history of early CAD Abnormal finding on CT scan CBC WITHOUT DIFFERENTIAL Routine 08/18/2024 8:39 AM DISTILLING DEPARTMENT SUPERVISOR POCT ACTIVATED CLOTTING TIME, LOW RANGE Routine 08/18/2024 8:36 AM DISTILLING DEPARTMENT SUPERVISOR EGFR STAT 08/18/2024 7:20 AM DISTILLING DEPARTMENT SUPERVISOR BASIC METABOLIC PANEL STAT 08/18/2024 7:20 AM DISTILLING DEPARTMENT SUPERVISOR CBC WITHOUT DIFFERENTIAL STAT 08/18/2024 7:20 AM DISTILLING DEPARTMENT SUPERVISOR ECG 12-LEAD Routine 08/18/2024 6:19 AM DISTILLING DEPARTMENT SUPERVISOR CT HEART MORPHOLOGY AND CORONARY ARTERIES W CONTRAST Schedule Routine, Read Routine (OP Routine) 08/14/2024 11:09 AM DISTILLING DEPARTMENT SUPERVISOR Abnormal CT scan of heart LIPID PANEL Routine 08/04/2024 12:53 PM DISTILLING DEPARTMENT SUPERVISOR Hyperlipidemia, unspecified hyperlipidemia type TIWARI (dyspnea on exertion) Coronary arteriosclerosis UT AN ELECTIVE SUPRAGLOTTIC AIRWAY Routine 07/26/2024 4:54 PM DISTILLING DEPARTMENT SUPERVISOR BIOPSY - BREAST 07/26/2024 4:34 PM DISTILLING DEPARTMENT SUPERVISOR Breast abscess Periductal mastitis of right breast SURGICAL PATHOLOGY Routine 07/26/2024 8:57 AM DISTILLING DEPARTMENT SUPERVISOR Breast abscess US BREAST RIGHT LIMITED Schedule Routine, Read Routine (OP Routine) 07/06/2024 3:17 PM DISTILLING DEPARTMENT SUPERVISOR Disorder of breast Abscess of breast DIAGNOSTIC MAMMOGRAM BILATERAL W FAMILIA IP Routine 03/24/2024 1:01 PM CDT from Last 3 Months or Most Recently Relevant to Health Maintenance Results * LEFT HEART CATHETERIZATION WITH CORONARY ANGIOGRAPHY AND WITH AND WITHOUT LEFT VENTRICULOGRAM (08/18/2024 9:03 AM DISTILLING DEPARTMENT SUPERVISOR) Anatomical Region Laterality Modality X-Ray Angiograph y Impressions 08/18/2024 9:40 AM DISTILLING DEPARTMENT SUPERVISOR Moderate LAD disease with fibrotic plaque and calcified nodules with negative IFR evaluation TR Band right radial artery THERAPEUTIC RECOMMENDATIONS: Continue aggressive medical therapy and risk factor modification TR band per protocol Continue medical management for underlying coronary artery disease. There is no need for revascularization at this time I was present during the entire procedure and personally dictated or confirmed the above report. Robin Holliday MD Narrative 08/18/2024 9:40 AM DISTILLING DEPARTMENT SUPERVISOR Procedure: CORONARY ANGIOGRAM / iFR/OCT Patient: Gina Brush is a 59 y.o. female : 1965 MR number: [id number] Date of Service: 08/18/2024 Mine Captain: Robin Holliday MD Fellow: RONALD Referring physician: Juan Luis Martínez MD INDICATION: CHF/Dyspnea NYHA Class 2 PATIENT CLINICAL PROFILE: Gina Brush is a 59 y.o. female with a history of Hypertension, obesity and recently diagnosed coronary artery disease who presents for left heart catheterization. Patient has been having intermittent symptoms of chest discomfort despite medical therapy. A CTA showed mild disease with a negative CT FFR but given her persistent symptoms, she presents for evaluation. Of note there was a indeterminate calcified plaque in the mid to proximal LAD that could be severe PROCEDURE: The risks, benefits and alternatives of the procedures and moderate sedation were explained to the patient and informed consent was obtained. The patient was brought to the label printing machinist and placed on the table Bilateral groins and the right radial artery were prepped and draped in the usual sterile fashion. The right radial artery site was infiltrated with 2% lidocaine. I provided direct face to face monitoring of intravenous conscious sedation which was administered using Fentanyl and Versed by an independently certified nurse for a total of 30 minutes. The vessel was accessed using Angiocath needle and a 5/6 F Terumo glidesheath was placed without difficulty into the vessel. IV vasodilators were administered and heparin was administered when the catheter was placed in the ascending aorta. Left Coronary Artery Angiogram was performed using a 6 Fr rbl 3.5 Catheter. Right Coronary Artery Angiogram was performed using a 5 Fr Pm0Vjoucyuw. OCT and IFR evaluation of the LAD performed using a 6 Icelandic RBL 3.5 guiding catheter, Omni pressure wire,scion blue, OCT dragonfly catheter At the end of the procedure, arteriotomy was successfully closed and hemostasis achieved by a TR band placement. Patient was transferred to the holding area in stable condition. There were no apparent complications. RESULTS: Coronary Arteriography: Left main coronary: Left main coronary is a large vessel supplies an LAD and circumflex. There was no significant left main coronary artery disease Left Anterior Decending: Left anterior descending artery is a large vessel extends around the apex. It gives off 1 major diagonal branch. At the diagonal branch there is a tortuous segment and an eccentric 50% narrowing. There is a 40% narrowing in the proximal portion of the LAD. Left Circumflex: Circumflex is a moderate-sized vessel supplies several obtuse marginal vessels. There are no significant narrowings present. Right Coronary Artery: Right coronary is a large dominant vessel supplies a large PDA and small PLV branch. There is some mild plaquing but no significant disease is present IFR and OCT evaluation After the diagnostic portion of the case it was felt that further OCT evaluation of the LAD was warranted given the questionable CT findings. Heparin was administered to obtain ACT of greater than 280 was maintained throughout the case. A coronary wire was placed easily into the distal LAD. A OCT dragonfly catheter was positioned and OCT was performed. It showed a eccentric fibrotic lesion just distal to the LAD diagonal bifurcation that was narrowed about 60%. In addition that showed a calcified nodule after the diagonal branch and a calcified nodule in the proximal portion of the LAD. There appeared to be no high-risk features or thin cap fiber atheromatous. Given the fibrotic plaque distal to the diagonal branch we would elected then to perform 0 IFR. An IFR wire was normalized in the ascending aorta and placed easily into the LAD. Serial IFR measurements were made for 0.92 to 0.93 consistent with a non hemodynamically significant lesion of the LAD. IFR pullback with coverage duration was performed that showed the step-up was predominantly at the fibrotic lesion of the LAD diagonal bifurcation. Final angiographic views showed no ill effects from performing these procedures. We then turned our attention to the right radial artery whereby a TR band was placed COMPLICATIONS: None DIAGNOSTIC us Juan Luis Martínez MD CV CARDIAC CATH PROCEDURES F inal Result * (ABNORMAL) CBC without differential (08/18/2024 8:39 AM DISTILLING DEPARTMENT SUPERVISOR) [facility] WBC 8.8 3.8 - 9.9 K/cumm Hgb 11.7(L) 11.9 - 15.5 g/dL [facility] Hct 37.5 35.6 - 45.5 % [facility] Plt 249 150 - 400 K/cumm [facility] MPV 9.0(L) 9.1 - 12.3 fL [facility] RBC 4.07 3.90 - 5.20 M/cumm [facility] MCV 92.1 81.3 - 96.4 fL [facility] MCH 28.7 27.1 - 33.3 pg [facility] MCHC 31.2(L) 32.3 - 35.7 g/dL [facility] RDW CV 14.3 11.1 - 14.9 % [facility] RDW SD 48.8(H) 35.7 - 48.1 fL [facility] NRBC abs 0.00 0.00 - 0.01 K/cumm [facility] Blood 08/18/2024 8:39 AM DISTILLING DEPARTMENT SUPERVISOR 08/18/2024 9:04 AM DISTILLING DEPARTMENT SUPERVISOR Narrative [facility] - 08/18/2024 9:18 AM DISTILLING DEPARTMENT SUPERVISOR To be drawn after hydration bolus complete us Robin Holliday MD LAB BLOOD ORDERABLES Final R esult [facility] Department [place] [address] * (ABNORMAL) POCT Activated clotting time, low range (08/18/2024 8:36 AM DISTILLING DEPARTMENT SUPERVISOR) [facility] ACT 329(H) 123 - 168 sec POC Performer [id number] [facility] POC Device Number [id number] [facility] Blood 08/18/2024 8:36 AM DISTILLING DEPARTMENT SUPERVISOR 08/18/2024 8:36 AM DISTILLING DEPARTMENT SUPERVISOR us Robin Holliday MD LAB POCT ORDERABLES - DEVICE Final Result Performing Organization Address [facility] Co de Phone Number [facility] Department [place] [address] * eGFR (08/18/2024 7:20 AM DISTILLING DEPARTMENT SUPERVISOR) [facility] eGFR 87 >=60 mL/min/1. 73 m2 Comment: Interpretive Data Reference Interval Normal >/= 90 mL/min/1.73m2 Mildly decreased* 60 - 89 mL/min/1.73m2 Mildly to moderately decreased 45 - 59 mL/min/1.73m2 Moderately to severely decreased 30 - 44 mL/min/1.73m2 Severely decreased 15 - 29 mL/min/1.73m2 Kidney Failure < 15 mL/min/1.73m2 *Relative to young adult level Estimated glomerular filtration rate is determined by the 2020 CKD-EPI equation recommended by the National Kidney Foundation (A Unifying Approach to GFR Estimation: Recommendations of the NKF-ASK Task Force on Reassessing the Inclusion of Race in Diagnosing Kidney Disease, JASN 2020). The CKD-EPI equation should not be used for patients with unstable renal function and has not been validated in children and those over 70. Current interpretive data was last reviewed 2021. Blood 08/18/2024 7:20 AM DISTILLING DEPARTMENT SUPERVISOR 08/18/2024 7:34 AM DISTILLING DEPARTMENT SUPERVISOR us Robin Holliday MD LAB BLOOD ORDERABLES Final R esult Performing Organization Address [facility] Co de Phone Number [facility] Department [place] [address] * (ABNORMAL) CBC without differential (08/18/2024 7:20 AM DISTILLING DEPARTMENT SUPERVISOR) [facility] WBC 9.0 3.8 - 9.9 K/cumm Hgb 12.2 11.9 - 15.5 g/dL [facility] Hct 38.1 35.6 - 45.5 % [facility] Plt 266 150 - 400 K/cumm [facility] MPV 8.9(L) 9.1 - 12.3 fL [facility] RBC 4.21 3.90 - 5.20 M/cumm [facility] MCV 90.5 81.3 - 96.4 fL [facility] MCH 29.0 27.1 - 33.3 pg [facility] MCHC 32.0(L) 32.3 - 35.7 g/dL [facility] RDW CV 14.5 11.1 - 14.9 % [facility] RDW SD 47.8 35.7 - 48.1 fL [facility] NRBC abs 0.00 0.00 - 0.01 K/cumm [facility] Blood 08/18/2024 7:20 AM DISTILLING DEPARTMENT SUPERVISOR 08/18/2024 7:26 AM DISTILLING DEPARTMENT SUPERVISOR us Robin Holliday MD LAB BLOOD ORDERABLES Final R esult [facility] Department [place] [address] * Basic metabolic panel (08/18/2024 7:20 AM DISTILLING DEPARTMENT SUPERVISOR) Sodium 140 135 - 145 mmol/L Potassium, pl 3.9 3.3 - 4.9 mmol/L [facility] Chloride 105 97 - 110 mmol/L [facility] CO2 29 22 - 32 mmol/L [facility] Anion gap 6 2 - 15 mmol/L [facility] BUN 9 6 - 25 mg/dL [facility] Creatinine 0.78 0.60 - 1.10 mg/dL [facility] Glucose 107 70 - 199 mg/dL [facility] Comment: Interpretive Data Fasting glucose >/= 126 mg/dl is diagnostic for diabetes. Fasting is defined as no caloric intake for at least 8 hours. Fasting glucose between 100 mg/dl to 125 mg/dl is diagnostic of prediabetes. In a patient with classic symptoms of hyperglycemia or hyperglycemic crisis, a random glucose >/= 200 mg/dl is diagnostic for diabetes. In the absence of unequivocal hyperglycemia, results should be confirmed by repeat testing. The classification and Diagnosis of Diabetes Diabetes Care 202; 46: S19-S40. Current interpretive data was last revised 2022. Calcium 9.2 8.5 - 10.3 mg/dL [facility] Blood 08/18/2024 7:20 AM DISTILLING DEPARTMENT SUPERVISOR 08/18/2024 7:26 AM DISTILLING DEPARTMENT SUPERVISOR Robin Holliday MD LAB BLOOD ORDERABLES Final R esult Performing Organization Address [facility] Co de Phone Number [facility] Department [place] [address] * ECG 12 lead (08/18/2024 6:19 AM DISTILLING DEPARTMENT SUPERVISOR) Pathologist [facility] Ventricular Rate EKG/Min 62 BPM [facility] Atrial Rate 62 BPM [facility] UT-Interval (MSEC) 154 ms [facility] QRS-Interval (MSEC) 88 ms [facility] QT-Interval (MSEC) 446 ms [facility] QTc 452 ms [facility] P [place] 45 degrees [facility] R [place] -9 degrees [facility] T [place] 63 degrees [facility] Diagnosis Normal sinus rhythm Normal ECG When compared with ECG of 04-MAR-2009 09:55, no significant change Confirmed by JERRY SOLIMAN M.D ([id number]) on 08/18/2024 10:11:21 AM [facility] 08/18/2024 6:19 AM DISTILLING DEPARTMENT SUPERVISOR 08/18/2024 10:11 AM DISTILLING DEPARTMENT SUPERVISOR Robin Holliday MD ECG ORDERABLES Final Result Performing Organization Address [facility] Co de Phone Number [facility] * CTA Heart and Coronary Arteries W Morphology when Performed (08/14/2024 11:09 AM DISTILLING DEPARTMENT SUPERVISOR) Anatomical Region Laterality Modality Chest N/A Computed Tomogra phy 08/14/2024 2:01 PM DISTILLING DEPARTMENT SUPERVISOR Impressions 08/14/2024 2:01 PM DISTILLING DEPARTMENT SUPERVISOR 1. Research scan. please refer to clinical CCTA on 06/05/2024. Electronically signed by: Juan Luis Martínez M.D. Narrative Procedure Note Juan Luis Martínez MD - 08/14/2024 IMPRESSION: 1. Research scan. please refer to clinical CCTA on 06/05/2024. Electronically signed by: Juan Luis Martínez M.D. Juan Luis Martínez MD IMG CT PROCEDURES Edited * (ABNORMAL) Lipid panel (08/04/2024 12:53 PM DISTILLING DEPARTMENT SUPERVISOR) Triglycerides 178(H) <150 mg/dL [facility] Comment: Desirable: <150 mg/dL, fasting <175 mg/dL, non-fasting Persistently elevated triglycerides may enhance atherosclerotic cardiovascular disease. Total Cholesterol 175 <200 mg/dL [facility] Total HDL-C Direct 34(L) >50 mg/dL [facility] Comment: A low HDL-C may be inidcative of metabolic syndrome and enhance atherosclerotic cardiovascular disease risk. Non-HDL cholesterol 141 <220 mg/dL [facility] Friedewald LDL Chol 105 <190 mg/dL [facility] Comment: The Friedewald equation is accurate in most patients when triglycerides are less than 150 mg/dL. Consider the use of non-HDL-C or Apo B to help estimate atherosclerotic cardiovascular diesase risk if triglycerides are elevated. Blood 08/04/2024 12:5 3 PM DISTILLING DEPARTMENT SUPERVISOR 08/04/2024 2:00 PM DISTILLING DEPARTMENT SUPERVISOR Narrative [facility] - 08/04/2024 2:26 PM DISTILLING DEPARTMENT SUPERVISOR Current interpretive data was last updated June 20, 2021. For adults ages 40-79, the ACC/AHA recommends discussing your 10-year atherosclerotic cardiovascular disease risk with your health care provider. https://www.acc.org/ASCVDApp Juan Luis Martínez MD LAB BLOOD ORDERABLES Final R esult [facility] * UT AN ELECTIVE SUPRAGLOTTIC AIRWAY (07/26/2024 4:54 PM DISTILLING DEPARTMENT SUPERVISOR) Narrative Blas Sapp AA - 07/26/2024 4:54 PM DISTILLING DEPARTMENT SUPERVISOR Blas Sapp AA 07/26/2024 4:55 PM Airway Patient location: OR Urgency: elective Indications for airway management: anesthesia Difficult airway: no Staff: Supervising provider: Jan Thapa MD Placed by: AA: Blas Sapp AA Emergent airway documentation: Risks and benefits discussed: yes Consent obtained: yes Consent given by: patient Airway prep: Preoxygenated: yes Mask difficulty assessment: 1 - vent by mask Spontaneous ventilation during airway: absent Sedation level during airway: GA Final airway details: Final airway type: supraglottic airway Final supraglottic airway: IGel SGA size: 4 Number of attempts: 1 Additional comments: Atraumatic lma placement by janes us Jan Thapa MD ANESTHESIA ORDERABLES Rae l Result * Surgical pathology (07/26/2024 8:57 AM DISTILLING DEPARTMENT SUPERVISOR) Tissue (Breast, excisional biopsy/ partial mastectomy) 07/26/2024 5:04 PM DISTILLING DEPARTMENT SUPERVISOR Narrative PATHOLOGY - 07/28/2024 12:29 PM DISTILLING DEPARTMENT SUPERVISOR EPIC results best viewed via link to PDF [facility] Department of Pathology [address] [place] [id number] Note to Patients: This report may contain a detailed description of human tissue sent by a health care provider to the laboratory for pathologic evaluation. The content of this report is essential for diagnosis and may provide important critical findings. This information may be unfamiliar to patients to review without a medical professional present. It is advised that the patient review this report in the presence of a health care provider who can answer questions and explain the details. Final Report with Addendum Patient Name: GINA BRUSH Address: [address] [place] [address] Gender: F : 1965 (Age: 59) Service: Surgery Location: [place] Hospital #: [id number] Patient Type: [facility] Taken: 07/26/2024 Received: 07/27/2024 Accessioned: 07/27/2024 Reported: 07/28/2024 Physician(s):Tr Mcqueen M.D. Diagnosis: Breast, right, excision biopsy: - Features suggestive of abscess - Background breast with apocrine metaplasia, usual ductal hyperplasia, adenosis and microcalcifications in the benign breast tissue - see microscopic description Armond Lozoya M.D. Report Electronically Reviewed and Signed Out By Armond Lozoya M.D. 07/28/2024 12:29:21 Procedure/Addenda: Addendum Addendum Comment Immunostain for AE1/AE3 highlights the intact epithelium. Armond Lozoya M.D.Report Electronically Reviewed and Signed Out By Armond Lozoya M.D. 08/03/2024 00:32:30 Specimen(s) Received: A: Short superior, long lateral - Right breast excisional biopsy Microscopic Description: Microscopic examination substantiates the above diagnosis. Immunostain for AE1/AE 3 is pending, will be reported in addendum. Clinical History: Breast abscess Procedure: Right breast excisional biopsy Gross Description: Received in a single formalin filled container labeled with GINA BRUSH and right breast excisional biopsy . It is a roughly ovoid shaped piece of medina skin and fibrofatty tissue received oriented with 2 sutures. It measures 6.3 from medial to lateral 5.0 cm from superior to inferior and 4.0 cm from anterior to posterior. The skin measures 4.5 x 4 cm and contains a partially retracted nipple measuring 1 cm. It is inked: posterior black, superior blue, and inferior green. An abscess cavity is present somewhat centrally that measures 2 x 1.5 x 1 cm. It is located immediately deep to the skin, 1 cm from the inferior margin, 2 cm from the posterior margin and 2 cm from the superior margin, it is 3 cm from the lateral margin and 2.5 cm from the medial margin. It is surrounded by dense medina thickened dermal tissue and fibrofatty tissue with palpably firm areas. Located superior and medially to the abscess is what may be a sinus tract measuring 1 cm. There are no discrete lesions. Lapeler sections are submitted: Abscess from lateral to medial A 1 through A4, possible sinus tract A5 and A6, nipple A7, random A8 through A10 Lou Champion R.N., P.A./Savi Braga M.D. REPORT IMAGES AND SCANNED DOCUMENTS, IF INCLUDED, ONLY VIEWABLE IN PDF VERSION OF REPORT The performance characteristics of some immunohistochemical stains, fluorescence in-situ hybridization tests and immunophenotyping by flow cytometry cited in this report (if any) were determined by the Surgical Pathology Department at [facility] as part of an ongoing billing and quality technician program and in compliance with federally mandated regulations drawn from the Clinical Laboratory Improvement Act of 1988 (CLIA '88). Some of these tests rely on the use of analyte specific reagents and are subject to specific labeling requirements by the US Food and Drug Administration. Such diagnostic tests may only be performed in a facility that is certified by the Department of Health and Human Services as a high complexity laboratory under CLIA '88. The FDA has determined that such clearance or approval is not necessary. This test is used for clinical purposes. It should not be regarded as investigational or for research. Nevertheless, federal rules concerning the medical use of analyte specific reagents require that the following disclaimer be attached to the report: This test was developed and its performance characteristics determined by the Surgical Pathology Department [facility]. It has not been cleared or approved by the U. S. Food and Drug Administration. Note for decalcified specimens: This assay has not been validated on decalcified tissues. Results should be interpreted with caution given the possibility of false negativity on decalcified specimens Nery Anne MD PhD LAB PATHO LOGY ORDERABLES Final Result [facility] [address] [place] [address] * US Breast Right Limited (07/06/2024 3:17 PM DISTILLING DEPARTMENT SUPERVISOR) Anatomical Region Laterality Modality Breast Right Ultrasound 07/06/2024 3:50 PM DISTILLING DEPARTMENT SUPERVISOR Impressions 07/06/2024 3:50 PM DISTILLING DEPARTMENT SUPERVISOR Interval decrease in size of subareolar finding, with probable intraductal debris. Findings are again considered probably benign and may reflect resolving or ongoing inflammatory process. Continued follow-up is recommended. OVERALL FINAL ASSESSMENT: BI-RADS Category 3: Probably Benign. RECOMMENDATION: Recommend follow-up diagnostic breast imaging in 6 months with targeted right breast ultrasound. Dr. Wadsworth discussed the above findings and recommendations with the patient. Electronically signed by: Tr Simmons 07/06/2024 3:50 PM DISTILLING DEPARTMENT SUPERVISOR EXAMINATION: RIGHT BREAST ULTRASOUND HISTORY: 59-year-old woman here for follow-up of right subareolar probable dilated ducts in setting of prior subareolar abscess. She reports the area waxes and wanes. COMPARISON: Ultrasound and mammogram on 03/24/2024. TECHNIQUE: Directed ultrasound evaluation of the RIGHT breast was performed. ULTRASOUND FINDINGS: Targeted ultrasound was performed in the area of concern in the subareolar right breast, demonstrating interval decrease in size of probable dilated duct, today measuring 1.0 x 0.3 cm (previously 1.6 x 0.6 cm). Probable debris is seen within the duct and extending towards the nipple. Procedure Note Shelley Wadsworth MD - 07/06/2024 EXAMINATION: RIGHT BREAST ULTRASOUND HISTORY: 59-year-old woman here for follow-up of right subareolar probable dilated ducts in setting of prior subareolar abscess. She reports the area waxes and wanes. COMPARISON: Ultrasound and mammogram on 03/24/2024. TECHNIQUE: Directed ultrasound evaluation of the RIGHT breast was performed. ULTRASOUND FINDINGS: Targeted ultrasound was performed in the area of concern in the subareolar right breast, demonstrating interval decrease in size of probable dilated duct, today measuring 1.0 x 0.3 cm (previously 1.6 x 0.6 cm). Probable debris is seen within the duct and extending towards the nipple. IMPRESSION: Interval decrease in size of subareolar finding, with probable intraductal debris. Findings are again considered probably benign and may reflect resolving or ongoing inflammatory process. Continued follow-up is recommended. OVERALL FINAL ASSESSMENT: BI-RADS Category 3: Probably Benign. RECOMMENDATION: Recommend follow-up diagnostic breast imaging in 6 months with targeted right breast ultrasound. Dr. Wadsworth discussed the above findings and recommendations with the patient. Electronically signed by: Shelley Wadsworth M.D. Nery Anne MD PhD IMG MAMMO PROCEDURES Final Result * Diagnostic Mammogram Bilateral W Familia (03/24/2024 1:01 PM CDT) Anatomical Region Laterality Modality Breast Bilateral Mammography 03/24/2024 1:02 PM CDT Impressions 03/24/2024 1:06 PM CDT Right breast subareolar probable dilated duct. No mass or abscess, although this may represent a resolving inflammatory process. OVERALL FINAL ASSESSMENT: BI-RADS Category 3: Probably Benign. RECOMMENDATION: 1. Recommend follow-up diagnostic breast imaging with RIGHT breast ultrasound in 3 months. 2. Clinical follow-up. Dr. Almaraz discussed the above findings and recommendations with the patient, who expressed her understanding of the management plan. Dictated by: Tamie Pringle M.D. The radiology attending physician has personally reviewed this study, and had reviewed and/or edited this written report and agrees with it. Electronically signed by: Trang Almaraz M.D. Narrative 03/24/2024 1:06 PM CDT EXAMINATION: BILATERAL DIGITAL DIAGNOSTIC MAMMOGRAM INCLUDING CAD AND BILATERAL DIGITAL BREAST TOMOSYNTHESIS; RIGHT BREAST SONOGRAM HISTORY: 59-year-old woman presents with 4 days of suspected right breast abscess. COMPARISON: Bilateral mammogram and left breast ultrasound 11/09/2014 and left breast ultrasound on 06/18/2015. TECHNIQUE: Full field digital mammographic views of BOTH breasts were performed, including computer aided detection (CAD) and BILATERAL digital breast tomosynthesis (DBT). Directed ultrasound evaluation of the RIGHT breast was performed by a trained drafter assistant and by Rufina. BREAST PARENCHYMAL COMPOSITION: There are scattered areas of fibroglandular density. MAMMOGRAM FINDINGS: There is a focal asymmetry in the subareolar RIGHT breast without mass or distortion. There is no suspicious mass, distortion, or consultations in the LEFT breast. SONOGRAM FINDINGS: Targeted ultrasound was performed of the right subareolar region demonstrates a 1.6 x 0.6 x 0.9 cm thick-walled anechoic structure with minimal internal debris that most likely represents a dilated duct. This correlates with the focal asymmetry on mammography. No mass or definite abscess is identified. Procedure Note Trang Almaraz MD - 03/24/2024 EXAMINATION: BILATERAL DIGITAL DIAGNOSTIC MAMMOGRAM INCLUDING CAD AND BILATERAL DIGITAL BREAST TOMOSYNTHESIS; RIGHT BREAST SONOGRAM HISTORY: 59-year-old woman presents with 4 days of suspected right breast abscess. COMPARISON: Bilateral mammogram and left breast ultrasound 11/09/2014 and left breast ultrasound on 06/18/2015. TECHNIQUE: Full field digital mammographic views of BOTH breasts were performed, including computer aided detection (CAD) and BILATERAL digital breast tomosynthesis (DBT). Directed ultrasound evaluation of the RIGHT breast was performed by a trained drafter assistant and by Rufina. BREAST PARENCHYMAL COMPOSITION: There are scattered areas of fibroglandular density. MAMMOGRAM FINDINGS: There is a focal asymmetry in the subareolar RIGHT breast without mass or distortion. There is no suspicious mass, distortion, or consultations in the LEFT breast. SONOGRAM FINDINGS: Targeted ultrasound was performed of the right subareolar region demonstrates a 1.6 x 0.6 x 0.9 cm thick-walled anechoic structure with minimal internal debris that most likely represents a dilated duct. This correlates with the focal asymmetry on mammography. No mass or definite abscess is identified. IMPRESSION: Right breast subareolar probable dilated duct. No mass or abscess, although this may represent a resolving inflammatory process. OVERALL FINAL ASSESSMENT: BI-RADS Category 3: Probably Benign. RECOMMENDATION: 1. Recommend follow-up diagnostic breast imaging with RIGHT breast ultrasound in 3 months. 2. Clinical follow-up. Dr. Almaraz discussed the above findings and recommendations with the patient, who expressed her understanding of the management plan. Dictated by: Tamie Pringle M.D. The radiology attending physician has personally reviewed this study, and had reviewed and/or edited this written report and agrees with it. Electronically signed by: Trang Almaraz M.D. Result [facility] Cynthia MENDOZA IMG MAMMO PROCEDURES Final Result from Last 3 Months or Most Recently Relevant to Health Maintenance Insurance [facility] Advance Directives For more information, please contact: [phone] * Full Code (Latest Code Status on File) Date Activated Date Inactivated Comments 08/18/2024 11:38 AM 08/18/2024 4:41 PM * Full Code Date Activated Date Inactivated Comments 03/23/2024 4:21 PM 03/24/2024 9:07 PM Care Teams Door Repairer Bus Relationship Specialty [place] [address] [place] [id number] PCP - General Gastroenterology 03/24/24
--- OUTSIDE RECORDS SUMMARY | 2024-09-12 12:30 | XMS_ITS ---
Author Organization Unknown Address [address] [place] [address] [phone] Phone Care Team Providers Care Case Planner Name Role Phone ALLIE BENZ Attending Unavailable NO PCP Primary Unavailable Immunization Immunization Date Status Additional Notes Code Code System COVID-19, mRNA, LNP-S, PF, 1 00 mcg/0.5mL dose or 50 mcg/0.25mL dose 10/29/2020 Completed 207 CVX COVID-19, mRNA, LNP-S, PF, 1 00 mcg/0.5mL dose or 50 mcg/0.25mL dose 11/26/2020 Completed 207 CVX Results ELBOW MINIMUM 3V LEFT - Comp leted: 12/15/2023 10:00 LOINC: EXAM DESCRIPTION: ? ? ELBOW MINIMUM 3V RIGHT; ? ? WRIST 3V LEFT; ? ? ELBOW MINIMUM 3V LEFT REASON FOR STUDY: bilateral elbow pain nki bilateral wrist pain Hx of bilateral carpal tunnel surgery FINDINGS: Three views each elbow and three views each wrist submitted without comparison. Right elbow: No acute fractures are identified. There is mild ulnar trochlear joint osteoarthritis. There is chronic lateral epicondylitis. There is no effusion. Left elbow: There are no fractures. Alignment is normal. There is mild ulnar trochlear joint osteoarthritis. There is no effusion. Lateral elbow epicondylitis is present. Left wrist: There are no erosions. There are no fractures. Ulnar negative variance is present. There is mild basal thumb joint osteoarthritis. There is no dorsal wrist soft tissue swelling. Right wrist: There are no erosions. There are no fractures. Ulnar negative variance is present. There is mild basal thumb joint osteoarthritis. There is no dorsal wrist soft tissue swelling. IMPRESSION: ? ? No radiographic evidence of inflammatory arthritis. ? ? Mild bilateral ulnar trochlear joint osteoarthritis. ? ? Bilateral elbow chronic lateral epicondylitis. ? ? Mild bilateral basal thumb joint osteoarthritis. THIS IS AN ELECTRONICALLY VERIFIED FINAL REPORT 12/15/2023 5:13 PM - Electronically signed by Anil Perdue M.D. MF: [id number] Report ID: [id number] Reading Location: [id number] ELBOW MINIMUM 3V RIGHT - Com pleted: 12/15/2023 09:59 LOINC: EXAM DESCRIPTION: ? ? ELBOW MINIMUM 3V RIGHT; ? ? WRIST 3V LEFT; ? ? ELBOW MINIMUM 3V LEFT REASON FOR STUDY: bilateral elbow pain nki bilateral wrist pain Hx of bilateral carpal tunnel surgery FINDINGS: Three views each elbow and three views each wrist submitted without comparison. Right elbow: No acute fractures are identified. There is mild ulnar trochlear joint osteoarthritis. There is chronic lateral epicondylitis. There is no effusion. Left elbow: There are no fractures. Alignment is normal. There is mild ulnar trochlear joint osteoarthritis. There is no effusion. Lateral elbow epicondylitis is present. Left wrist: There are no erosions. There are no fractures. Ulnar negative variance is present. There is mild basal thumb joint osteoarthritis. There is no dorsal wrist soft tissue swelling. Right wrist: There are no erosions. There are no fractures. Ulnar negative variance is present. There is mild basal thumb joint osteoarthritis. There is no dorsal wrist soft tissue swelling. IMPRESSION: ? ? No radiographic evidence of inflammatory arthritis. ? ? Mild bilateral ulnar trochlear joint osteoarthritis. ? ? Bilateral elbow chronic lateral epicondylitis. ? ? Mild bilateral basal thumb joint osteoarthritis. THIS IS AN ELECTRONICALLY VERIFIED FINAL REPORT 12/15/2023 5:13 PM - Electronically signed by Anil Perdue M.D. MF: [email or web address] Report ID: [id number] Reading Location: [id number] WRIST 3V LEFT - Completed: 0 12/15/2023 10:00 LOINC: EXAM DESCRIPTION: ? ? ELBOW MINIMUM 3V RIGHT; ? ? WRIST 3V LEFT; ? ? ELBOW MINIMUM 3V LEFT REASON FOR STUDY: bilateral elbow pain nki bilateral wrist pain Hx of bilateral carpal tunnel surgery FINDINGS: Three views each elbow and three views each wrist submitted without comparison. Right elbow: No acute fractures are identified. There is mild ulnar trochlear joint osteoarthritis. There is chronic lateral epicondylitis. There is no effusion. Left elbow: There are no fractures. Alignment is normal. There is mild ulnar trochlear joint osteoarthritis. There is no effusion. Lateral elbow epicondylitis is present. Left wrist: There are no erosions. There are no fractures. Ulnar negative variance is present. There is mild basal thumb joint osteoarthritis. There is no dorsal wrist soft tissue swelling. Right wrist: There are no erosions. There are no fractures. Ulnar negative variance is present. There is mild basal thumb joint osteoarthritis. There is no dorsal wrist soft tissue swelling. IMPRESSION: ? ? No radiographic evidence of inflammatory arthritis. ? ? Mild bilateral ulnar trochlear joint osteoarthritis. ? ? Bilateral elbow chronic lateral epicondylitis. ? ? Mild bilateral basal thumb joint osteoarthritis. THIS IS AN ELECTRONICALLY VERIFIED FINAL REPORT 12/15/2023 5:13 PM - Electronically signed by Anil Perdue M.D. MF: [id number] Report ID: [id number] Reading Location: [id number] WRIST 3V RIGHT - Completed: 12/15/2023 10:00 LOINC: EXAM DESCRIPTION: WRIST 3V RIGHT REASON FOR STUDY: bilateral wrist pain NKI hx of bilateral carpal tunnel surgery Duration: several months worsening TECHNIQUE: Frontal, lateral and oblique radiographic view(s) of the right wrist . COMPARISON: None available. FINDINGS: No acute fracture. Well corticated density adjacent to the ulnar styloid process compatible with degenerative change/sequelae of prior trauma or developmental variant. Increased density projecting over the triscaphe joint could be related to prior surgery and/or degenerative in nature. IMPRESSION: 1. No acute fracture. 2. Degenerative changes and additional findings as above. THIS IS AN ELECTRONICALLY VERIFIED FINAL REPORT 12/15/2023 3:01 PM - Electronically signed by Malcolm Romero D.O. AP: AP Report ID: [id number] Reading Location: [id number] Social History Type Status Start Date End Date Code Code Syst em Sex Female Hospital Discharge Instructions Should you have any questions prior to discharge, please contact a member of your healthcare team. If you have left the hospital and have any questions, please contact your primary care physician. Reason For Referral No Data Found Plan of Treatment No Data Found Encounters Encounter Diagnosis Start Date Code Code Sys tem Primary osteoarthritis, left elbow 12/15/2023 SNOMED-CT Personal Care Team Section Performer Name Performer Role Active Date Inactive Da te Imaging Narrative Notes
--- OUTSIDE RECORDS SUMMARY | 2024-09-12 12:30 | XMS_ITS | Clinical Summary ---
Author Organization [facility] al Address [address] [place] [address] Care Team Providers Care Eyelet Punch Operator Name Role Phone Mabel Ivan MD Primary Care Provider Allergies Active Allergy Reactions Criticality Noted Date [...] Fumarate-Fa Other (See comments) Low 07/06/2024 Reaction: Hnzmlojh-Tvv-Dr-Fa Hives,Other (See comments) High 07/06/2024 Vitamins Unknown 12/21/2023 -2 Unknown 07/06/2024 Pyridoxine Anaphylaxis High 09/15/2015 Anaphylaxis Riboflavin (Vit B2) Phosphate Anaphylaxis High 09/15/2015 Anaphylaxis Senior Vitamin B-12 Anaphylaxis High 09/15/2015 Anaphylaxis Nhsjvxs-Owg-Qkv Reductase Inhibitors Other (See comments),Stomach upset,Unknown High [...] skin once a week 2 mL 1 01/31/2 025 Active evolocumab 140 mg/mL pen injectorIndicati ons:atherosclero [...] Frequency Start Date End Date Status [facility] metoprolol () 5 mg/5 mL injection [address] scan of heart 5 mg IV Every 10 min PRN 08/14/2024 Active INV-[facility] nitroglycerin () 400 mcg/spray translingual aerosol/spray 2 [...] 3:56 PM CDT): - Continue home meds- [place], Seroquel, and Zoloft. - [place] level ordered with am labs Abnormal finding on CT scan 03/23/2024 Assessment & Plan (03/24/2024 3:45 PM CDT): CT also noted coronary artery atherosclerosis involving the left anterior descending and right coronary arteries is noted. Consider outpatient cardiovascular referral. - Outpatient cards referral placed - ASA - Allergy to statin ( kidneys ) Abscess of breast 06/18/2015 Disorder of breast 11/30/2013 Encounters Date Type Department Care Team Description 09/07/2024 Telephone [facility] Cardiology [address] [place] [address] Office [address] [place] [phone] Juan Luis Martínez MD 09/05/2024 Telephone [facility] Cardiology [address] [place] [address] Building [address] [place] [address] Hayden Portillo NP Med Refill 08/18/2024 8:00 AM FIELD HAULER - 08/18/2024 9:40 AM FIELD HAULER Surgery [facility] [address] [place] [address] Robin Holliday MD LEFT HEART CATHETERIZATION WITH CORONARY ANGIOGRAPHY AND WITH OR WITHOUT LEFT VENTRICULOGRAM [id number] 08/18/2024 6:17 AM FIELD HAULER - 08/18/2024 12:36 PM FIELD HAULER Hospital Encounter [facility] [address] [place] [address] Robin Holliday MD TIWARI (dyspnea on exertion); Chest pain, unspecified type; Family history of early CAD; Abnormal finding on CT scan Discharge Disposition: Discharge to home or self care 08/18/2024 Telephone [facility] Cardiology [address] [facility] 8th [place] [address] [place] [address] Juan Luis Martínez MD 08/14/2024 9:54 AM FIELD HAULER - 08/14/2024 11:59 PM FIELD HAULER Hospital Encounter [facility] [place] [address] scan of heart Discharge Disposition: Discharge to home or self care 08/14/2024 Research Med Pick-Up/CT[employer] Network Technology Instructor [facility] Clinical Trial [address] [place] [address] Juan Luis Martínez MD Abnormal CT scan of heart (Primary Dx) 08/07/2024 Telephone [facility] [place] [address] No, Physician 08/04/2024 12:45 PM FIELD HAULER Lab [facility] Endocrinology Metabolism and Lipid [address] [place] [address] [place] [address] [place] [address] Hyperlipidemia, unspecified hyperlipidemia type; TIWARI (dyspnea on exertion); Coronary arteriosclerosis 08/04/2024 11:30 AM FIELD HAULER Office Visit [facility] Cardiology [address] [facility] 8th [place] [address] [place] [address] Juan Luis Martínez MD Hyperlipidemia, unspecified hyperlipidemia type (Primary Dx); TIWARI (dyspnea on exertion); Coronary arteriosclerosis 08/04/2024 Orders Only [facility] [place] [address] Juan Luis Martínez MD Abnormal CT scan of heart (Primary Dx) 08/04/2024 Telephone [facility] Cardiology [facility] 8th [place] [address] [place] [address] Juan Luis Martínez MD 08/03/2024 9:45 AM FIELD HAULER Office Visit [facility] Surgery [address] [place] [address] 8 [place] [phone] Nery Anne MD PhD Encounter for postoperative wound check (Primary Dx); Periductal mastitis of right breast; Breast abscess; Hx of benign breast biopsy 07/26/2024 4:35 PM FIELD HAULER Anesthesia Event [facility] Operating Room [address] [place] [phone] Jan Thapa MD Eldin, Ali S., MD 07/26/2024 3:00 PM FIELD HAULER - 07/26/2024 4:30 PM FIELD HAULER Surgery [facility] Operating Room [address] [place] [phone] Nery Anne MD PhD RIGHT BREAST EXCISIONAL BIOPSY 07/26/2024 12:44 PM FIELD HAULER - 07/26/2024 6:48 PM FIELD HAULER Hospital Encounter [facility] Operating Room [address] [place] [address] Nery Anne MD PhD Breast abscess Discharge Disposition: Discharge to home or self care 07/25/2024 Telephone [facility] Surgery [address] [place] [phone] Rama Elliott [facility] Surgery Confirmation 07/17/2024 Telephone [facility] Surgery [address] [place] [phone] Nery Anne MD PhD 07/09/2024 Orders Only [facility] Surgeon [address] [place] [address] Dorina Chino MD Breast abscess (Primary Dx) 07/06/2024 2:00 PM FIELD HAULER - 07/06/2024 11:59 PM FIELD HAULER Hospital Encounter [facility] - Breast Imaging [address] [facility] Floor 8 [place] [address] Disorder of breast; Abscess of breast Discharge Disposition: Discharge to home or self care 07/06/2024 1:45 PM FIELD HAULER Office Visit [facility] Surgery [address] [facility] Floor 8 [place] [address] Nery Anne MD PhD Breast abscess (Primary Dx); Periductal mastitis of right breast; Abnormal finding on breast imaging from Last 3 Months Surgical History Surgery Date Site/Laterality Comments TUBAL LIGATION HYSTERECTOMY CATARACT EXTRACTION Bilateral BREAST SURGERY Right benign tumor removed BREAST SURGERY Left infection of milk ducts requiring surgery CARPAL TUNNEL RELEASE Bilateral HAND SURGERY Left nerve reattachment after carpal tunnel SECTION BACK SURGERY Lumbar surgery x 2 REPLACEMENT TOTAL KNEE Right BLADDER SUSPENSION Medical History Medical History Date Comments Heart disease Depression Headaches, cluster Osteoporosis Arthritis Respiratory abnormalities Breath ing Problems Sleep apnea Chronic bronchitis (HCC) Cough Asthma GERD (gastroesophageal reflux disease) Hiatal hernia Chronic pain disorder Sciatica Bipolar disorder (HCC) Anxiety PTSD (post-traumatic stress disorder) Breast abscess Family History Medical History Relation Name Comments Lymphoma Brother Family history of lymphoma - (Added by TW Conv) Relation Name Status Comments Brother Social History Tobacco Use Types Packs/Day Years [...] on file Legal Sex Female 9:00 PM FIELD HAULER Gender Identity Female 03/25/2024 4:16 PM CDT Sexual Orientation Not on file Obstetrics History Last Filed Vital Signs Vital Sign Reading Time Taken Comments Blood Pressure 107/52 08/18/2024 11:45 AM FIELD HAULER Pulse 73 08/18/2024 11:45 AM FIELD HAULER Temperature 36.9 C (98.4 F) 08/18/2024 6:40 AM FIELD HAULER Respiratory Rate 28 08/18/2024 11:45 AM FIELD HAULER Oxygen Saturation 95% 08/18/2024 11:45 AM FIELD HAULER Inhaled Oxygen Concentration - - Weight 86.2 kg (190 lb 0.6 oz) 08/18/2024 6:40 A M FIELD HAULER Height 167.6 cm (5' 6 ) 08/18/2024 6:40 AM FIELD HAULER Body Mass Index 30.67 08/18/2024 6:40 AM FIELD HAULER Plan of Treatment Health Maintenance Due Date Last Done Comments Colon Cancer Screening-Colonoscopy 1965 Depression Screening 1965 Hepatitis C Screening 1965 DTaP/Tdap/Td Vaccine (1 - Tdap) 01/30/1976 Hepatitis B Screening 1983 Regular Well Visit/Exam 18-64 1983 Zoster Vaccine (1 of 2) 2015 Covid-19 Vaccine (3 - 2023-2 5 season) 2024 11/26/2020, 10/29/2020 Influenza Vaccine (#1) 2024 Breast Cancer Screening-Mammogram 03/24/2025 03/24/2024, 11/09/2014 Pneumococcal vaccine <65 Aged Out No longer eligible based on patient's age to complete this topic Procedures Procedure Name Priority Date/Time Associated Diagnosis Comments LEFT HEART CATHETERIZATION WITH CORONARY ANGIOGRAPHY AND WITH AND WITHOUT LEFT VENTRICULOGRAM Routine 08/18/2024 9:03 AM FIELD HAULER TIWARI (dyspnea on exertion) Chest pain, unspecified type Family history of early CAD Abnormal finding on CT scan CBC WITHOUT DIFFERENTIAL Routine 08/18/2024 8:39 AM FIELD HAULER POCT ACTIVATED CLOTTING TIME, LOW RANGE Routine 08/18/2024 8:36 AM FIELD HAULER EGFR STAT 08/18/2024 7:20 AM FIELD HAULER BASIC METABOLIC PANEL STAT 08/18/2024 7:20 AM FIELD HAULER CBC WITHOUT DIFFERENTIAL STAT 08/18/2024 7:20 AM FIELD HAULER ECG 12-LEAD Routine 08/18/2024 6:[address] HEART MORPHOLOGY AND CORONARY ARTERIES W CONTRAST Schedule Routine, Read Routine (OP Routine) 08/14/2024 11:09 AM FIELD HAULER Abnormal CT scan of heart LIPID PANEL Routine 08/04/2024 12:53 PM FIELD HAULER Hyperlipidemia, unspecified hyperlipidemia type TIWARI (dyspnea on exertion) Coronary arteriosclerosis NE AN ELECTIVE SUPRAGLOTTIC AIRWAY Routine 07/26/2024 4:54 PM FIELD HAULER BIOPSY - BREAST 07/26/2024 4:34 PM FIELD HAULER Breast abscess Periductal mastitis of right breast SURGICAL PATHOLOGY Routine 07/26/2024 8:57 AM FIELD HAULER Breast abscess US BREAST RIGHT LIMITED Schedule Routine, Read Routine (OP Routine) 07/06/2024 3:17 PM FIELD HAULER Disorder of breast Abscess of breast DIAGNOSTIC MAMMOGRAM BILATERAL W FAMILIA IP Routine 03/24/2024 1:01 PM CDT from Last 3 Months or Most Recently Relevant to Health Maintenance Results * LEFT HEART CATHETERIZATION WITH CORONARY ANGIOGRAPHY AND WITH AND WITHOUT LEFT VENTRICULOGRAM (08/18/2024 9:03 AM FIELD HAULER) Anatomical Region Laterality Modality X-Ray Angiograph y Impressions 08/18/2024 9:40 AM FIELD HAULER Moderate LAD disease with fibrotic plaque and [...] Robin Holliday MD Narrative 08/18/2024 9:40 AM FIELD HAULER Procedure: CORONARY ANGIOGRAM / iFR/OCT Patient: Gina Brush is a 59 y.o. female : 1965 MR number: [id number] Date of Service: 08/18/2024 Heritage Consultant: Robin Holliday MD Fellow: RONALD Referring physician: [...] obtained. The patient was brought to the lab pack chemist and placed on the table Bilateral groins [...] Angiogram was performed using a 5 Fr Vi8Tikekodz. OCT and IFR evaluation of the LAD performed using a 6 Nepali RBL 3.5 guiding catheter, Omni pressure wire,scion [...] (ABNORMAL) CBC without differential (08/18/2024 8:39 AM FIELD HAULER) WBC 8.8 3.8 - 9.9 K/cumm Hgb 11.7(L) 11.9 - 15.5 g/dL [facility] Hct 37.5 35.6 - 45.5 % [facility] Plt 249 150 - 400 K/cumm [facility] MPV 9.0(L) 9.1 - 12.3 fL [facility] RBC 4.07 3.90 - 5.20 M/cumm [facility] MCV 92.1 81.3 - 96.4 fL [facility] MCH 28.7 27.1 - 33.3 pg [facility] MCHC 31.2(L) 32.3 - 35.7 g/dL [facility] RDW CV 14.3 11.1 - 14.9 % [facility] RDW SD 48.8(H) 35.7 - 48.1 fL [facility] NRBC abs 0.00 0.00 - 0.01 K/cumm [facility] Blood 08/18/2024 8:39 AM FIELD HAULER 08/18/2024 9:04 AM FIELD HAULER Narrative [facility] - 08/18/2024 9:18 AM FIELD HAULER To be drawn after hydration bolus complete us Robin Holliday MD LAB BLOOD ORDERABLES Final R esult Performing Organization Address [facility] Co de Phone Number [facility] Department [place] [address] * (ABNORMAL) POCT Activated clotting time, low range (08/18/2024 8:36 AM FIELD HAULER) Pathologist [facility] ACT 329(H) 123 - 168 sec POC Performer [id number] [facility] POC Device Number [id number] [facility] Blood 08/18/2024 8:36 AM FIELD HAULER 08/18/2024 8:36 AM FIELD HAULER Robin Holliday MD LAB POCT ORDERABLES - DEVICE Final Result Performing Organization Address [facility] Co de Phone Number [facility] Department [place] [address] * eGFR (08/18/2024 7:20 AM FIELD HAULER) [facility] eGFR 87 >=60 mL/min/1. 73 m2 Comment: [...] last reviewed 2021. Blood 08/18/2024 7:20 AM FIELD HAULER 08/18/2024 7:34 AM FIELD HAULER Robin Holliday MD LAB BLOOD ORDERABLES Final R esult [facility] Department [place] [address] * (ABNORMAL) CBC without differential (08/18/2024 7:20 AM FIELD HAULER) [facility] WBC 9.0 3.8 - 9.9 K/cumm Hgb 12.2 11.9 - 15.5 g/dL [facility] Hct 38.1 35.6 - 45.5 % [facility] Plt 266 150 - 400 K/cumm [facility] MPV 8.9(L) 9.1 - 12.3 fL [facility] RBC 4.21 3.90 - 5.20 M/cumm [facility] MCV 90.5 81.3 - 96.4 fL [facility] MCH 29.0 27.1 - 33.3 pg [facility] MCHC 32.0(L) 32.3 - 35.7 g/dL [facility] RDW CV 14.5 11.1 - 14.9 % [facility] RDW SD 47.8 35.7 - 48.1 fL [facility] NRBC abs 0.00 0.00 - 0.01 K/cumm [facility] Blood 08/18/2024 7:20 AM FIELD HAULER 08/18/2024 7:26 AM FIELD HAULER Robin Holliday MD LAB BLOOD ORDERABLES Final R esult Performing Organization Address [facility] Co de Phone Number [facility] Department [place] [address] * Basic metabolic panel (08/18/2024 7:20 AM FIELD HAULER) Sodium 140 135 - 145 mmol/L Potassium, pl 3.9 3.3 - 4.9 mmol/L [facility] Chloride 105 97 - 110 mmol/L [facility] CO2 29 22 - 32 mmol/L [facility] Anion gap 6 2 - 15 mmol/L [facility] BUN 9 6 - 25 mg/dL [facility] Creatinine 0.78 0.60 - 1.10 mg/dL [facility] Glucose 107 70 - 199 mg/dL [facility] Comment: Interpretive Data Fasting glucose >/= 126 [...] 2022. Calcium 9.2 8.5 - 10.3 mg/dL [facility] Blood 08/18/2024 7:20 AM FIELD HAULER 08/18/2024 7:26 AM FIELD HAULER Robin Holliday MD LAB BLOOD ORDERABLES Final R esult Performing Organization Address [facility]/ZIP Co de Phone Number DEV[facility] Department [place] [address] * ECG 12 lead (08/18/2024 6:19 AM FIELD HAULER) Ventricular Rate EKG/Min 62 BPM [facility] Atrial Rate 62 BPM [facility] NE-Interval (MSEC) 154 ms [facility] QRS-Interval (MSEC) 88 ms [facility] QT-Interval (MSEC) 446 ms [facility] QTc 452 ms [facility] P [place] 45 degrees [facility] R [place] -9 degrees [facility] T [place] 63 degrees [facility] Diagnosis Normal sinus rhythm Normal ECG When compared with ECG of 04-MAR-2009 09:55, no significant change Confirmed by JERRY SOLIMAN M.D ([id number]) on 08/18/2024 10:11:21 AM [facility] 08/18/2024 6:19 AM FIELD HAULER 08/18/2024 10:11 AM FIELD HAULER us Robin Holliday MD ECG ORDERABLES Final Result [facility] * CTA Heart and Coronary Arteries W Morphology when Performed (08/14/2024 11:09 AM FIELD HAULER) Anatomical Region Laterality Modality Chest N/A Computed Tomogra phy 08/14/2024 2:01 PM FIELD HAULER Impressions 08/14/2024 2:01 PM FIELD HAULER 1. Research scan. please refer to clinical CCTA on 06/05/2024. Electronically signed by: Juan Luis Martíenz M.D. Narrative Procedure Note Juan Luis Martínez MD - 08/14/2024 IMPRESSION: 1. Research scan. please refer to clinical CCTA on 06/05/2024. Electronically signed by: Juan Luis Martínez M.D. Juan Luis Martínez MD IMG CT PROCEDURES Edited * (ABNORMAL) Lipid panel (08/04/2024 12:53 PM FIELD HAULER) Triglycerides 178(H) <150 mg/dL [facility] Comment: Desirable: <150 mg/dL, fasting <175 mg/dL, [...] [facility] [place] LDL Chol 105 <190 mg/dL [facility] Comment: The [place] equation is accurate in most patients when triglycerides are less than 150 mg/dL. Consider the use of non-HDL-C or Apo B to help estimate atherosclerotic cardiovascular diesase risk if triglycerides are elevated. Blood 08/04/2024 12:5 3 PM FIELD HAULER 08/04/2024 2:00 [address] N[address]ative [facility] - 08/04/2024 2:26 PM FIELD HAULER Current interpretive data was last updated June 20, 2021. For adults ages 40-79, the ACC/AHA recommends discussing your 10-year atherosclerotic cardiovascular disease risk with your health care provider. https://www.acc.org/ASCVDApp us Juan Luis Martínez MD LAB BLOOD ORDERABLES Final R esult [facility] * NE AN ELECTIVE SUPRAGLOTTIC AIRWAY (07/26/2024 4:54 PM FIELD HAULER) Narrative [facility] - 07/26/2024 4:54 PM FIELD HAULER Blas Sapp AA 07/26/2024 4:55 PM Airway [...] Additional comments: Atraumatic lma placement by janes Jan Thapa MD ANESTHESIA ORDERABLES Rae l Result * Surgical pathology (07/26/2024 8:57 AM FIELD HAULER) Tissue (Breast, excisional biopsy/ partial mastectomy) 07/26/2024 5:04 PM FIELD HAULER Narrative PATHOLOGY [facility] - 07/28/2024 12:29 PM FIELD HAULER EPIC results best viewed via link to PDF [facility] Department of Pathology [address] [place], [place] [id number] Note to Patients: This report may contain [...] with Addendum Patient Name: GINA BRUSH Address: [address] [place] [place] [address] Gender: F : 1965 (Age: 59) Service: Surgery Location: [place] Hospital #: [id number] Patient Type: [facility] Taken: 07/26/2024 Received: 07/27/2024 Accessioned: 07/27/2024 [...] single formalin filled container labeled with GINA JAMIEPEPITO and right breast excisional biopsy . It [...] 1 cm. There are no discrete lesions. Steel Heater sections are submitted: Abscess from lateral to [...] determined by the Surgical Pathology Department at [facility] as part of an ongoing chief vendor quality program and in compliance with federally mandated [...] characteristics determined by the Surgical Pathology Department [facility]. It has not been cleared or approved by the U. S. Food and Drug Administration. Note for decalcified specimens: This assay has not been validated on decalcified tissues. Results should be interpreted with caution given the possibility of false negativity on decalcified specimens Nery Anne MD PhD LAB PATHO LOGY ORDERABLES Final Result PATHOLOGY [address] [place] [address] * US Breast Right Limited (07/06/2024 3:17 PM FIELD HAULER) Anatomical Region Laterality Modality Breast Right Ultrasound 07/06/2024 3:50 PM FIELD HAULER Impressions 07/06/2024 3:50 PM FIELD HAULER Interval decrease in size of subareolar finding, [...] patient. Electronically signed by: Shelley Wadsworth M.D. Narrative 07/06/2024 3:50 PM FIELD HAULER EXAMINATION: RIGHT BREAST ULTRASOUND HISTORY: 59-year-old woman [...] patient. Electronically signed by: Shelley Wadsworth M.D. us Nery Anne MD PhD IMG MAMMO PROCEDURES [...] RIGHT breast was performed by a trained aircraft machinist helper and by Rufina. BREAST PARENCHYMAL COMPOSITION: There [...] or definite abscess is identified. Procedure Note Rufina, Trang Nye MD - 03/24/2024 EXAMINATION: BILATERAL DIGITAL DIAGNOSTIC [...] RIGHT breast was performed by a trained aircraft machinist helper and by Rufina. BREAST PARENCHYMAL COMPOSITION: There [...] Electronically signed by: Trang Almaraz M.D. Result [facility] Cynthia MENDOZA IMG MAMMO PROCEDURES Final Result from Last 3 Months or Most Recently Relevant to Health Maintenance Insurance Advance Directives For more information, please contact: [phone] * Full Code (Latest Code Status on File) Date Activated Date Inactivated Comments 08/18/2024 11:38 AM 08/18/2024 4:41 PM * Full Code Date Activated Date Inactivated Comments 03/23/2024 4:21 PM 03/24/2024 9:07 PM Care Teams Eyelet Punch Operator Relationship Specialty [place] [address] [place] [address] PCP - General Gastroenterology 03/24/24
--- OUTSIDE RECORDS SUMMARY | 2024-09-12 12:30 | XMS_ITS | Data Portability ---
Author Organization [place] [facility] [employer], Main Office Address [address] [place] [address] Care Team Providers Care Push Button Switch Assembler Name Role Phone CONSTANTINE ROSS Primary Care Provider CONSTANTINE ROSS Referring Provider Assessment Encounter Date Assessment Date Assessment LastModified by Organization Details LastModified Time 12/28/2022 12/28/2022 Patient returns spinal stenosis. She has a significant pain and aching she has had previous surgery duct tends to hurt unfortunately she remains symptomatic. She states the thing that helped more than anything else his epidural injections we will see if we can obtain those for the meantime for prescription drug management will try a prednisone taper for pain and inflammation. She should continue with exercises at home we talked about potentially going to therapy but she does not think she can stand. genet Not available 12/28/2022 11:10:42 Plan of Treatment Reminders Order Date Submit Date Provider Last Modified By Organization Details Last Modified Time Details Appointments None recorded. Lab estradiol, serum 2022 023 [facility], [address] [place], [address], 3 16:25:18 progestero ne, serum 2022 023 [facility], [address] [place], [address], 3 16:25:18 lh + FSH, serum 2022 023 [facility], [address] [place], [address], 3 16:25:18 testostero ne, free + total, serum 2022 023 [facility], [address] [place], [address], 3 16:25:18 lipid panel, serum 2022 023 [facility], [address] [place], [address], 3 16:30:34 insulin, fasting, serum 2022 023 [facility], [address] [place], [address], 3 16:30:34 vitamin D, 25-hydroxy , total, serum 2022 023 [facility], [address] [place], [address], 3 16:30:34 vitamin B12 + folate, serum or blood 2022 023 [facility], [address] [place], [address], 3 16:30:34 CMP, serum or plasma 2022 023 [facility], [address] [place], [address], 3 16:30:34 CBC w/ auto diff 2022 023 [facility], [address] [place], [address], 3 16:30:34 TSH + free T4, serum 2022 023 [facility], [address] [place], [address], 3 16:30:34 iron + total iron-salbador ng capacity (TIBC), serum 2022 023 [facility], [address] [place], [address], 3 16:30:34 thyroid peroxidase (tpo) Ab, serum 2022 023 [facility], [address] [place], [address], 3 16:30:34 T3, free, serum or plasma 2022 023 [facility], [address] [place], [address], 3 16:30:34 Referral None recorded. Procedures None recorded. Surgeries None recorded. Imaging US, thyroid [address] (Cardiology & Emg), [address] [facility] [address], [place], [address], 3 16:40:09 Medication Orders prednisone 10 mg tablets in a dose pack [email or web address] [place] [address]/Pharmacy #[id number], [address] [place] [address], [address], 3 11:15:26 Patient TargetsNo targets recorded. Patient InstructionsNo instructions recorded. Reason for Referral None Reported. Results Created Date Observation Date Name Description Value Unit Range Abnormal Flag Note LastModifiedBy Organization Detail LastModifiedTime 06/25/20 22 XR, foot, 3 or more view No observ ation record ed. [id number] [email or web address] [place] [address] [facility] [address], [place], [address], 09/16/2022 10:51:42 08/20/19 23 XR, lumba r spine No observ ation record ed. [id number] [email or web address] [place] [address], [place], [address], 09/16/2022 10:51:42 12/24/19 MRI, lumba r spine , w/o contr ast [facility] [address], [place] [address] [phone] Patiolga t Name: GINA GRANT Access ion #: [id number] Sex: F : 1964 2 Locati on: RA2 Attend ing Physic cathryn: DIAMOND MARTINEZ Physic cathryn: DIAMOND MARTINEZ Exam Date: 12/24/19 12:44 PM Exam Name: MRI L SPINE WO Admitt ing Diagno sis(es ): RADIOL OGY REPORT - FINAL EXAM: MRI L SPINE WO HISTOR Y: spinal stenos is 57-yea r-old female with low back pain, bilate ral leg weakne ss, lumbar surger y x 2. COMPAR CINDY: Radiog raphs dated 2022; CT scan of the abdome n and pelvis dated 2018. TECHNI QUE: Multip lanar multis equenc e noncon trast MR images of the lumbar spine were perfor med. FINDIN GS: No fractu res are identi fied in the lumbar spine. The conus termin ates at L1. L1-L2: There is a circum ferent ial broad disc bulge with endpla te hypert rophy. Page 1 of 4 [facility] Dhruv t Name: GINA GRANT Access ion #: [id number] Sex: F : 1964 2 Exam Date: 12/24/19 12:44 PM Exam Name: MRI L SPINE WO Admitt ing Diagno sis(es ): There are mild Modic type 2 change s and Schmor l's nodes in the adjace nt endpla guevara. There is bilate ral facet and ligame ntum flavum hypert rophy. No signif icant spinal canal stenos is or neural forami nal stenos is bilate rally. L2-L3: There is a circum ferent ial broad disc bulge with endpla te hypert rophy. There is a superi mposed left forami nal disc hernia tion measur ing 4 mm radial x 16 mm anti radial (image 18, series 701; image 3, series 401). There is bilate ral facet and ligame ntum flavum hypert rophy. No signif icant spinal canal stenos is. There is modera te left and no signif icant right neural forami nal stenos is. L3-L4: There is disc desicc ation and loss of disc height . There is a circum ferent ial broad disc bulge with endpla te hypert rophy. There is a superi mposed right parace ntral- prefor aminal disc hernia tion measur ing 11 mm transv erse x 6 mm AP (image s 8-9, series 401; image 12, series 701). There is bilate ral facet and ligame ntum flavum hypert rophy. The AP dimens ion of the spinal canal measur es 7 mm in the midlin e. There is partia l efface ment of the right latera l recess . There is mild bilate ral neural forami nal stenos is. L4-L5: There is disc desicc ation and near comple te loss of disc height . There are Modic type 2 change s in the adjace nt endpla guevara. There is a circum ferent ial broad disc bulge with endpla te hypert rophy, most promin ent in the forami nal region s. There are postop erativ e change s of right lamino radha and partia l right facete ctomy. No signif icant spinal canal stenos is, althou gh there is partia l efface ment of the latera l recess es on both sides. There is modera te to severe right and mild left neural forami nal stenos is. L5-S1: There is disc desicc ation and mild loss of disc height . Probab le Page 2 of 4 [facility] Pati t Name: ROBIN GRANTSocorro Martinez Access ion #: [id number] Sex: F : 1964 2 Exam Date: 12/24/19 12:44 PM Exam Name: MRI L SPINE WO Admitt ing Diagno sis(es ): vacuum phenom enon in the disc. There are Modic type 1 and 2 change s in the adjace nt endpla guevara. There is 3 mm retrol isthes is L5 on S1. There is a circum ferent ial broad disc bulge with endpla te hypert rophy. There is a superi mposed left parace ntral disc hernia tion measur ing up to 6.5 mm AP x 18 mm transv erse (image 8, series 401; image 2, series 701). There is bilate ral facet and ligame ntum flavum hypert rophy. The AP dimens ion of the spinal canal measur es 6 mm. There is partia l efface ment of the left latera l recess . There is mild right and modera te left neural forami nal stenos is. There is aneury smal dilata tion of the abdomi nal aorta measur ing up to 3.1 cm AP at the L2 level. The left renal vein is retroa ortic. IMPRES KRISTY: 1. No fractu re of the lumbar spine. 2. Postop erativ e change s of L4-L5 partia l discec radha, right lamino radha, and partia l right facete ctomy. 3. Degene rative disc diseas e and facet arthro hetal with multil evel signif icant neural forami nal stenos is as detail ed above, includ ing L2-L3 on the left; L4-L5 on the right; L5-S1 on the left. Additi onally , there is partia l efface ment of the right latera l recess at L3-L4; bilate ral latera l recess es at L4-L5; and left latera l recess at L5-S1. These findin gs may corres pond to lower extrem ity radicu lar sympto ms in right L4 and L5 nerve root distri bution s; and left L2 and L5 nerve root distri bution s. 4. Mild-t o-mode rate spinal canal stenos is at L3-L4 and L5-S1. 5. Mild aneury smal dilata tion of the infrar enal abdomi nal aorta measur ing up to 3.1 cm. Recomm end follow -up contra sted CT scan of the abdome n for better charac teriza tion. Page 3 of 4 [facility] Pati t Name: GINA GRANT ion #: [id number] Sex: F : 1964 2 Exam Date: 12/24/19 12:44 PM Exam Name: MRI L SPINE WO Admitt ing Diagno sis(es ): Create d and electr onical ly signed by: Josh finley MD Signed Date: 12/24/19 3:04 PM (CT) Dictat ed by: Josh finley MD (CT) (CT) Page [address] of [address] (Imaging) [address] [place], [address], 12/23/2022 16:10:37 Result Notes None recorded. Problems Name Problem SNOMED Code Status Onset Date Resolution Date Notes Provider Name and Address Organization Details Recorded Time Arthritis of left foot 217083147340 9109 Active 2021 Not Available [facility] 3 10:45:11 History of right total knee replaceme nt 525313874613 9102 Active 2019 Not Available [facility] 3 10:45:11 Disorder of shoulder 078295694 Active Not Available [facility] 3 10:45:11 Spinal stenosis of lumbar region 51047914 Active Not Available [facility] 3 10:45:11 Open wound of breast 182722713 Active Not Available [facility] 3 10:45:11 Osteoarth ritis of knee 240342496 Active Not Available [facility] 3 10:45:11 Fall from one level to another Active Not Available [facility] 3 10:45:11 Inflammat ory disorder of breast 576192878 Active Not Available [facility] 3 10:45:11 Shoulder joint pain 949777022 Active Not Available [facility] 3 10:45:11 Low back pain 665775130 Active 2022 Not Available [facility] 3 10:45:11 Current tear of medial cartilage AND/OR meniscus of knee Active Not Available [facility] 3 10:45:11 Enthesopa thy of hip region 31424545 Active Not Available [facility] 3 10:45:11 Depressiv e disorder 13583952 Active bipolar Not Available [facility] 3 10:45:11 Arthritis 9296754 Active Not Available [facility] 3 10:45:12 Neuropath y 919175988 Active Not Available [facility] 3 10:45:12 Osteoarth ritis 284494474 Active Not Available [facility] 3 10:45:12 Incontine nce 07692768 Active Not Available [facility] 3 10:45:12 Hand pain 05199889 Active 2019 Not Available [facility] 3 10:45:12 Derangeme nt of knee 85075007 Active Not Available [facility] 3 10:45:12 Acquired deformity of ankle AND/OR foot 79757522 Active Not Available [facility] 3 10:45:12 Fatigue 57495938 Active 2022 Micheline Henry MD [address], [place], [address] , [employer] 3 16:19:28 Dyslipide juanis 292588944 Active 2022 Micheline Henry MD [address], [place], [address] , [employer] 3 16:19:52 Goiter 6264087 Active 2022 Micheline Henry MD [address], [place], [address] , [employer] 3 16:20:28 Menopausa l syndrome 430404051 Active 2022 Micheline Henry MD [address] [facility], [facility] [address], [place], [address] , [employer] [facility] 16:21:52 Notes:Some problems listed i n Documents: #[id number], #[id number] could not be added to this patient's chart. Please review these documents and add these problems to the patient's chart manually as needed. Problem Notes None recorded. Procedures Surgical History Date Name Laterality Status Provider Name and Address Organization Details Recorded Time Hysterectomy/revi se vagina completed Dorina Joshua, [employer] ReplySend 09/17/2022 15:57:19 Back Surgery completed Dorina Joshua [employer]Send 09/17/2022 15:58:07 delivery completed Dorina Joshua [employer] ReplySend 09/17/2022 15:58:18 Total knee arthroplasty completed Dorina Joshua [employer] ReplySend 09/17/2022 15:58:29 Tubal Ligation completed Dorina Joshua, [employer] ReplySend 09/17/2022 15:58:59 Carpal tunnel surgery completed Dorina Joshua, [employer] ReplySend 09/17/2022 15:59:12 Cataract Surgery completed Dorina Joshua, [employer] ReplySend 09/17/2022 15:59:44 Imaging Results Imaging Date Name Status LastModified by Organiz ation Details LastModified Time 08/20/2022 XR, lumbar spine completed [id number] [facility] [place] [address], [place], [address], 09/16/2022 10:51:42 06/25/2022 XR, foot, 3 or more view completed [id number] [facility] [place] [address], [place], [address], 09/16/2022 10:51:42 12/23/2022 MRI, lumbar spine, w/o contrast completed [email or web address] (Imaging) [address] [place], [address], 12/23/2022 16:10:37 Procedure Notes None recorded. Medical Equipment None Reported. Allergies Allergen ID Allergen Name Allergen Category Reaction Reaction Severity Criticality Documentation Date Start Date Code Code System Note Provider Name and Address Organization Details Recorded Time 78435 Product containin g 3-hydroxy -3-methyl glutaryl- coenzyme A reductase inhibitor (product) medicatio n abdominal pain Not available Not available 09/16/2022 49117 009 SNOMED Not Available [facility] 3 10:51:24 06399 1 + Iron medicatio n hives severe Not available 09/16/2022 76020 UNK Not Available [facility] 3 10:51:24 95606 Botox medicatio n myalgias (muscle pain) Not available Not available 09/16/2022 11061 9 RxNorm Not Available [facility] 3 10:51:24 93299 adhesive environme nt,medica tion rash moderate Not available 09/16/2022 20498 UNK Not Available [facility] 3 10:51:24 46568 Plain FA medicatio n nausea moderate Not available 09/16/2022 26214 UNK Not Available [facility] 3 10:51:24 Medications Name Sig Start Date Stop Date Status Note LastModified by Organization Details LastModified Time celecoxib 200 mg capsule TAKE ONE CAPSULE BY MOUTH TWICE A DAY NEEDED FOR PAIN RATED 6 OR GREATER 08/28 completed Not Available Not Available Not Available cyclobenzap rine 10 mg tablet Take 1 tablet twice a day by oral route. 2012 active Not Available Not Available Not Avai lable ziprasidone 80 mg capsule TAKE 1 CAPSULE BY MOUTH EVERYDAY AT BEDTIME 06/25 completed Not Available Not Available Not Available amoxicillin 500 mg capsule TAKE 4 CAPSULES BY MOUTH 30-60 MINUTES PRIOR TO APPOINTME NT active Not Available Not Available No t Available Qvar 80 mcg/actuati on Metered Aerosol oral inhaler INHALE 2 PUFFS BY MOUTH TWICE A DAY 09/07 completed Not Available Not Available Not Available bupropion HCl SR 150 mg tablet,12 hr sustained-r elease TAKE 1 TABLET BY MOUTH TWICE A DAY active Not Available Not Available No t Available clonidine HCl 0.1 mg tablet TAKE 1 TABLET BY MOUTH TWICE A DAY active Not Available Not Available No t Available prednisone 10 mg tablet TAKE 1 TABLET BY MOUTH 3X DAILY X 3 DAYS, THEN 2X DAILY X 2 DAYS, THEN 1X DAILY X 1 DAY active Not Available Not Available No t Available gabapentin 600 mg tablet TAKE 1 TABLET BY MOUTH THREE TIMES A DAY active Not Available Not Available No t Available atorvastati n 20 mg tablet 08/28 completed Not Available Not Available Not Available benztropine 0.5 mg tablet TAKE 1 TABLET BY MOUTH 3 TIMES A DAY WITH MEALS 08/26 completed Not Available Not Available Not Available citalopram 40 mg tablet TK ONE T PO D active Not Available Not Available No t Available trazodone 50 mg tablet TAKE 1 TABLET BY MOUTH EVERY DAY AT BEDTIME FOR 30 DAYS 12/04 completed Not Available Not Available Not Available azithromyci n 250 mg tablet TAKE 2 TABLETS BY MOUTH TODAY, THEN TAKE 1 TABLET DAILY FOR 4 DAYS 08/20 completed Not Available Not Available Not Available ofloxacin 0.3 % eye drops INSTILL 1 DROP INTO SURGICAL EYE 3 TIMES A DAY - START 2 DAYS PRIOR TO SURGERY & 1 WEEK AFTER 06/25 completed Not Available Not Available Not Available Xanax 2 mg tablet Take 1 tablet 3 times a day by oral route. 2012 active Not Available Not Available Not Avai lable ranitidine 300 mg tablet TAKE 1 TABLET BY MOUTH TWICE A DAY 08/20 completed Not Available Not Available Not Available hydrocodone 5 mg-acetamin ophen 325 mg tablet TAKE 1 TABLET BY MOUTH EVERY 4 HOURS NEEDED FOR PAIN 12/04 completed Not Available Not Available Not Available sertraline 100 mg tablet TAKE 1 TABLET BY MOUTH EVERY DAY BEFORE MEAL active Not Available Not Available No t Available lidocaine HCl 2 % mucosal jelly Take 200 mg by mucous route. 08/28 completed Not Available Not Available Not Available acetaminoph en 300 mg-codeine 30 mg tablet TAKE 1-2 TABLETS BY MOUTH EVERY 4-6 HOURS NEEDED 08/28 completed Not Available Not Available Not Available ciprofloxac in 500 mg tablet TAKE 1 TABLET BY MOUTH EVERY 12 HOURS FOR 7 DAYS 08/28 completed Not Available Not Available Not Available sulfamethox azole 800 mg-trimetho prim 160 mg tablet TAKE 1 TABLET BY MOUTH EVERY 12 HOURS FOR 7 DAYS 01/01 completed Not Available Not Available Not Available hydrocodone 10 mg-acetamin ophen 325 mg tablet Take 1 tablet every 4-6 hours by oral route as needed. 08/28 completed Not Available Not Available Not Available peg-electro lyte solution 420 gram oral solution DRINK 1/2 OF JUG AT 5PM ON 02/05/22 AND 1/2 OF JUG AT 5AM ON 02/06/2206/25 completed Not Available Not Available Not Available tramadol 50 mg tablet Take 1 tablet every 6 hours by oral route. active Not Available Not Available No t Available ketorolac 30 mg/mL (1 mL) injection solution Inject 1 mL every 6 hours by intramusc ular route. 08/28 completed Not Available Not Available Not Available lithium carbonate ER 450 mg tablet,exte nded release TAKE 1 TABLET BY MOUTH TWICE A DAY active Not Available Not Available No t Available ketorolac 0.5 % eye drops INSTILL 1 DROP INTO SURGICAL EYE 3 TIMES A DAY - START 2 DAYS PRIOR TO SURGERY & 1 WEEK AFTER 06/25 completed Not Available Not Available Not Available prednisone 10 mg tablets in a dose pack Take 1 tab by mouth, 3 times a day for 3 daysTake 1 tab by mouth 2 times a day for 2 daysTake 1 tab by mouth once a day for 1 day 2022 active Not Available Not Available Not Avai lable ceftriaxone 1 gram solution for injection Take 1 g by injection route. 08/28 completed Not Available Not Available Not Available prednisolon e acetate 1 % eye drops,suspe nsion INSTILL 1 DROP INTO RIGHT EYE 4 TIMES A DAY 06/25 completed Not Available Not Available Not Available clarithromy trevor ER 500 mg tablet,exte nded release 24 hr TAKE 2 TABLETS BY MOUTH EVERY DAY 09/07 completed Not Available Not Available Not Available trazodone 100 mg tablet TAKE 1 TABLET BY MOUTH AT BEDTIME NEEDED FOR SLEEP active Not Available Not Available No t Available ropinirole 0.25 mg tablet TAKE 1 TABLET(S) EVERY DAY BY ORAL ROUTE AT BEDTIME. active Not Available Not Available No t Available lithium carbonate 300 mg capsule TAKE 2 CAPSULES BY MOUTH TWICE A DAY 06/25 completed Not Available Not Available Not Available hydrocodone 7.5 mg-acetamin ophen 325 mg tablet TAKE 1 TABLET BY MOUTH EVERY 4 HOURS NEEDED 08/28 completed Not Available Not Available Not Available cephalexin 500 mg capsule TAKE 1 CAPSULE BY MOUTH THREE TIMES DAILY 01/01 completed Not Available Not Available Not Available nitrofurant oin macrocrysta l 100 mg capsule TAKE 1 CAPSULE BY MOUTH EVERY 6 HOURS FOR 7 DAYS 08/28 completed Not Available Not Available Not Available ranitidine 150 mg tablet TAKE 1 TABLET BY MOUTH TWICE A DAY active Not Available Not Available No t Available gabapentin 300 mg capsule TAKE 1 CAPSULE 3 TIMES A DAY BY MOUTH DIRECTED FOR 30 DAYS. active Not Available Not Available No t Available ziprasidone 40 mg capsule TAKE ONE CAPSULE BY MOUTH DAILY AT BEDTIME 08/28 completed Not Available Not Available Not Available gabapentin 100 mg capsule TK ONE C PO TID active Not Available Not Available No t Available Cystografin 30 % urethral solution Take 300 mL by urethral route. 12/04 completed [facility]# [phone] Not Available Not Available Not Available levofloxaci n 500 mg tablet TAKE 1 TABLET BY MOUTH EVERY DAY 08/28 completed Not Available Not Available Not Available gentamicin 40 mg/mL injection solution Take 80 mL by injection route. 08/28 completed Not Available Not Available Not Available propranolol 20 mg tablet TAKE 1 TABLET BY MOUTH TWICE A DAY WITH MEALS 08/26 completed Not Available Not Available Not Available lithium carbonate 300 mg tablet TAKE 2 TABLETS BY MOUTH TWICE A DAY active Not Available Not Available No t Available sertraline 50 mg tablet TAKE 1 TABLET BY MOUTH EVERY DAY IN THE MORNING 08/28 completed Not Available Not Available Not Available diazepam 5 mg tablet TAKE 1 TABLET BY MOUTH EVERY 8 HOURS NEEDED FOR MUSCLE SPASM 08/28 completed Not Available Not Available Not Available oxycodone 5 mg tablet TAKE 1 TABLET BY MOUTH EVERY 4 HOURS NEEDED active Not Available Not Available No t Available hydroxyzine pamoate 25 mg capsule TAKE 1 CAPSULE BY MOUTH EVERYDAY AT BEDTIME 08/20 completed Not Available Not Available Not Available Botox 100 unit injection Take 100 units by injection route. 08/28 completed Not Available Not Available Not Available Laxative (bisacodyl) 5 mg tablet,beverley yed release TAKE 6 TABLETS BY MOUTH AT 8AM ON 03/03/2206/25 completed Not Available Not Available Not Available Klor-Con M20 mEq tablet,exte nded release TAKE 1 TABLET BY MOUTH TWICE A DAY FOR 3 DAYS 08/20 completed Not Available Not Available Not Available nitrofurant oin monohydrate /macrocryst als 100 mg capsule TAKE 1 CAPSULE BY MOUTH EVERY 12 HOURS FOR 5 DAYS 06/25 completed Not Available Not Available Not Available Vesicare 5 mg tablet Take 1 tablet every day by oral route. 01/01 completed Not Available Not Available Not Available diazepam 5 mg-7.5 mg-10 mg rectal kit set both syringes at 5mg will administe r in office active Not Available Not Available No t Available benztropine 3 times a day 2015 active Not Available Not Available Not Avai lable quetiapine 50 mg tablet TAKE 1 TABLET BY MOUTH EVERYDAY AT BEDTIME active Not Available Not Available No t Available peg 3350-electr olytes 236 gram-22.74 gram-6.74 gram-5.86 gram solution DRINK 8OZ EVERY 10 MIN UNTIL FINISHED -START DAY PRIOR TO PROCEDURE (MAY MIX W/ LEMON CRYSTAL LIGHT) 12/04 completed Not Available Not Available Not Available Prilosec 10 mg oral suspension, delayed release Take 2 packets every day by oral route. active Not Available Not Available No t Available Latuda 40 mg tablet TAKE 1 TABLET BY MOUTH EVERY DAY AT BEDTIME FOR 30 DAYS 08/26 completed Not Available Not Available Not Available Latuda 80 mg tablet TAKE 1 TABLET BY MOUTH EVERY DAY AT DINNER DIRECTED active Not Available Not Available No t Available Xarelto 10 mg tablet TAKE 1 TABLET BY MOUTH IN THE MORNING 08/28 completed Not Available Not Available Not Available Triple Antibiotic- Pain Relief 3.5 mg-500 unit-10,000 unit/gram ointmnt APPLY 3 TIMES A DAY TO NECK LESION 08/28 completed Not Available Not Available Not Available Vitals Date Recorded Body mass index (BMI) Body height Body weight Provider Name and Address Organization Details Last Updated DateTime 06/25/2022 34.3 kg/m2 162.56 cm 86304.47 g Not Available [facility] 09/16/2022 10:42:44 Date Recorded Body mass index (BMI) Body height Body weight Provider Name and Address Organization Details Last Updated DateTime 08/20/2022 32.4 kg/m2 162.56 cm 81852.96 g Not Available [facility] 09/16/2022 10:42:44 Date Recorded Body height Body mass index (BMI) Body weight Body temperature Heart rate Systolic blood pressure Diastolic blood pressure Provider Name and Address Organization Details Last Updated DateTime 162.56 cm 33.5 kg/m2 86567.5 1 g 97.6 [degF] 84 /min 136 mm[Hg] 80 mm[Hg] Dorina Coreasgypsy [facility] [employer] 15:55:12 Date Recorded Body height Body mass index (BMI) Body weight Provider Name and Address Organization Details Last Updated DateTime 12/28/2022 162.56 cm 32.4 kg/m2 88093.96 g Mary Burton [facility] [employer] [facility] [employer] 12/28/2022 10:55:50 Social History Question Answer Notes LastModified by Organizat ion Details LastModified Time Tobacco Smoking Status Never Smoker Not Available [facility] 09/16/2022 10:41:31 What Is Your Level Of Alcohol Consumption? None [id number] Information not available 09/16/2022 Sex: Unknown Functional Status None recorded. Mental Status None recorded. Family History Relationship Description Onset Age of this Age Resolved Age Notes LastModified by Organization Details LastModified Time Father Heart disease [id number] [id number] Not available 09/16/2022 10:42:15 Father Hypertensive disorder MIGRATION.555 [id number] Not available 09/16/2022 10:42:15 Father Diabetes mellitus MIGRATION.286 [id number] Not available 09/16/2022 10:42:15 Mother Heart disease MIGRATION.668 [id number] Not available 09/16/2022 10:42:15 Mother Hypertensive disorder MIGRATION.927 [id number] Not available 09/16/2022 10:42:15 Mother Kidney disease MIGRATION.054 [id number] Not available 09/16/2022 10:42:15 Maternal Grandmother Cerebrovascu lar accident MIGRATION.415 [id number] Not available 09/16/2022 10:42:15 Brother Family history of malignant neoplasm MIGRATION.145 [id number] Not available 09/16/2022 10:42:15 Brother Family history of malignant neoplasm MIGRATION.656 [id number] Not available 09/16/2022 13:17:10 Sister Diabetes mellitus MIGRATION.630 [id number] Not available 09/16/2022 10:42:15 Sister Diabetes mellitus MIGRATION.936 [id number] Not available 09/16/2022 13:17:10 Medical History Condition Response BLINDNESS N RHEUMATIC FEVER N MRSA N BACK INJECTIONS N INFECTIOUS DISEASE N HEART ARRHYTHMIA N LUNG DISEASE/DISORDER N ESRD N INSOMNIA N HISTORY OF DRUG ABUSE N RADIATION / CHEMOTHERAPY N COPD N HIGH CHOLESTEROL / HYPERLIPIDEMIA N EYE PROBLEMS N HYPERTHYROIDISM Y PVD N BLOOD DISEASES N EDEMA N SURGERY N HYPOTHYROIDISM N SHINGLES N DEPRESSION (INCLUDING POST ) Y HAVE YOU BEEN HOSPITALIZED OR SEEN IN [facility] ER IN THE PAST YEAR ? N FAILED BACK SYNDROME N STROKE/TIA N THYROID DISEASE N BENIGN PROSTATIC HYPERPLASIA N POLYCYSTIC OVARIES N OBESITY N GERD/NAUSEA N EXCESSIVE PERSPIRATION N ANEURYSM N OSTEOPOROSIS Y URINARY/BLADDER/KIDNEY PROBLEMS Y Do you have Advance directive? N ARTHRITIS N USE OF BLOOD THINNERS N NO SIGNIFICANT PAST MEDICAL HISTORY N SKIN PROBLEMS N DIABETES, TYPE N VON WILLIBRAND'S DISEASE N PARATHYROID DISEASE N BLOOD CLOTS N POST LAMINECTOMY SYNDROME N HEPATITIS / LIVER DISEASE N GOUT N ALZHEIMER'S DISEASE N ARTERIAL INSUFFICIENCY N HERPES N RETINOPATHY N HEADACHES/MIGRAINES N SEIZURES/EPILEPSY N GI PROBLEMS N Low Testosterone N DIZZINESS N HEART DISEASE/HEART PROBLEMS N AIDS/HIV N KIDNEY DISEASE N LIVER DISEASE N MALE HYPOGONADISM N NEUROPSYCHOLOGICAL N HYPERTENSION N CANCER: SPECIFY N TOURETTE'S N BLOOD TRANSFUSION N ANEMIA/BLOOD DISORDER N ATRIAL FIBRILLATION N AUTOIMMUNE DISEASE N TUBERCULOSIS N GLAUCOMA N Gynecological HistoryNo gynecological history recorded. Obstetrics History GPAL:G 0 P 0 0 0 0 Past Encounters Encounter ID Performer Location Encounter Start Date Encounter Closed Date Diagnosis/Indication Diagnosis SNOMED-CT Code Diagnosis ICD10 Code Diagnosis Note [id number] [facility] [place] [address] [place] [address] 06/25/2022 00:00:00 06/25/2022 14:45:53 [id number] [facility] [place] [address] [place] [address] 08/20/2022 00:00:00 08/20/2022 13:25:35 [id number] Micheline Henry MD [facility] [place] [address] [place] [address] 09/17/2022 15:44:12 09/17/2022 16:40:09 Fatigue 58759040 R53.83 Will send for thyroid antibodies to screen for autoimmune thyroid disease in addition to CBC, CMP, ferritin and B12/folate to screen for other potential secondary causes of fatigue. Dyslipidemia 630058143 E 78.5 Send for lipid panel to assess need to start on fish oil or alternativ e therapy as patient had reaction to statin. Goiter 3315047 E04.9 Will send for baseline thyroid ultrasound as she does have a palpable thyroid and repeat thyroid function panel to assess function. Menopausal syndrome 1237 00247 N95.9 Send for hormone panel to screen for perimenopa usal / menopausal changes. Spent up to 45 minutes preparing to see the patient (eg, review of tests), obtaining and/or reviewing separately obtained history, performing a medically appropriat e examinatio n and evaluation , counseling and educating the patient, ordering medication s, tests, along with documentin g clinical informatio n in the electronic health record, independen tly interpreti ng results and communicat ing results to the patient. RTC in 3-4 months. Patient was provided a handwritte n lab order which contains our fax number. If she chooses to go outside of the [facility] system to obtain labwork she was advised to provide our fax number and my informatio n to the lab she will be obtaining labwork from in order to have her labs properly forwarded over for me to review so there is no loss of follow up due to use of outside network. She was also advised to contact our clinic informing us that she has completed her labwork so we are aware we will need to reach out to the appropriat e laboratory to request her results be forwarded to us so I might have the ability to review and make further medical decision making in her case. She voiced understand ing. Thank you for this consultati on. [id number] Diamond Mcneal MD [facility] [place] [address] [place] [address] 12/28/2022 10:50:43 12/28/2022 11:15:45 Low back pain 427964290 M54.50 Health Concerns Section Related Observation LastModified by Organization Detai ls LastModified Time None Recorded Concern Status LastModified by Organization Details LastModified Time None Recorded Advance Directives Directive None Recorded Payers Encounter Date Sequence Insurance Name Policy Number Policy Manriquez Covered Member ID Manriquez Member ID Guarantor Name 09/17/2022 1 [facility] [employer] ON OR AFTER 01/16/21 (MEDICAID REPLACEMENT - HMO) Gina Michelle Ahmadi [id number] Gina Ahmadi 12/28/2022 1 [facility] [employer] ON OR AFTER 01/16/21 (MEDICAID REPLACEMENT - HMO) Gina Michelle Ahmadi [id number] Gina Michelle Ahmadi Notes Date Note Type Note Provider Name and Address Organization Details Recorded Time 08/20/2022 text/html L-spineReported bypatient.Location :posterior; deep Quality:aching; throbbing; dull; frequent Severity:moderate Duration:continuou s since onset Timing:chronic Context:lifting; twisting; overuse Alleviating Factors:lying down; position change; ice; rest; elevation Aggravating Factors:walking; bending/squatting; exercise Associated Symptoms:no numbness; no tingling; no swelling; no redness; no ecchymosis; no catching/locking; no popping/clicking; no buckling; no grinding; no instability; no radiation down leg; no drainage; no fever; no chills; no weight loss; no change in bowel/bladder habits;weakness;wa rmth Not Available [place] [facility] [employer] [facility] 08/20/2022 13:25:35 09/17/2022 text/html 57 yo female com es in as referral by courtesy of Dr. Mays for management of Her psychiatrist referred her as she struggling to get help from her PCP per patient. She does have trouble with fatigue, weight gain. She cannot get enough sleep ever. She has hx of sleep apnea-she doesn't use her CPAP regularly. She is not taking thyroid medication and never has been on thyroid medication. She was placed on atorvastatin /lipitor for high cholesterol. She was having pain in her side and her renal function- she ended up coming the atorvastatin for a few days- this was before covid. Micheline Henry MD [address] [place], [place] [address], [place] [address], [place], [address], [employer] [facility] 09/17/2022 16:33:31 12/28/2022 text/html Patient returns back pain. 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 She has pain with almost any activity and is bothering her a lot at this point. She has already had surgery in the past. Diamond Mcneal MD [address], [place], [address], [employer] 12/28/2022 11:14:34 OBGyn Episode No OBEpisode recorded.
== END 2024-09-12 10:36 | disposition home or self-care (01) ==
LOC: CHSLAB 10:39
PROVIDERS: PCP Internal Medicine Gastroenterology
DX: E78.5 Hyperlipidemia, unspecified (principal); Z82.49 Family history of ischemic heart disease and other diseases of the circulatory system
CPT/HCPCS: 36415; 80061

== ENCOUNTER 2025-01-02 13:52 | Outpatient (CLI) | payer OTHER, SELFPAY ==
--- NOTE | ~2025-01-02 | US_ITS ---
US art doppler w press LE BI INDICATION: Leg edema. TECHNIQUE: Segmental pressures and plethysmographic and Doppler waveforms of the brachial and lower e xtremity arteries were obtained. COMPARISON: None. FINDINGS: Right and left brachial artery pressures of 105 mm Hg and 113 mm Hg, respectively, are concordant (no rmal difference <= 30 mmHg). The right ankle-brachial index (REYNALDO) is 1.1 (normal >= 0.9-1.0). The right great toe-brachial index ( TBI) is 0.95 (normal >= 0.60). The left REYNALDO is 1.21. The left TBI is 1.01. Right lower extremity: There is triphasic flow in the common femoral, popliteal artery with biphasic flow in the posterior tibial and dorsalis pedis arteries. Left lower extremity: There is biphasic flow in the left lower extremity with the exception of tripha sic flow in the popliteal artery. IMPRESSION: 1. Normal ankle-brachial indices. Reviewed, dictated and finalized at location A.
--- OUTSIDE RECORDS SUMMARY | 2025-01-02 14:43 | XMS_ITS ---
Author Organization Unknown Address [address] [place] [phone] Phone Care Team Providers Care Aircraft Delivery Checker Name Role Phone ALLIE BENZ Attending Unavailable [...] Anil Perdue M.D. MF: RITO Report ID: [id number] Reading Location: [id number] ELBOW MINIMUM 3V RIGHT - Com pleted: [...] Anil Perdue M.D. MF: RITO Report ID: [id number] Reading Location: [id number] WRIST 3V LEFT - Completed: 0 12/15/2023 [...] Anil Perdue M.D. MF: RITO Report ID: [id number] Reading Location: [id number] WRIST 3V RIGHT - Completed: 12/15/2023 10:00 [...] Malcolm Romero D.O. AP: AP Report ID: [id number] Reading Location: [id number] Social History Type Status Start Date End [...] elbow 12/15/2023 SNOMED-CT Personal Care Team Section Imaging Narrative Notes
--- OUTSIDE RECORDS SUMMARY | 2025-01-02 14:43 | XMS_ITS | Encounter Summary ---
Author Organization [facility] Address [facility]ly [facility] [place] [address] Care Team Providers Care Director Of Tax Services Name Role Phone Unavailable Primary Care Provider Unavailabl e Encounter Details Date Type Department Care Team (Late st Contact Info) Description 12/24/2018 Abstract SFL CONVERSION [address] [place] [address] , Generic Conversion, Social History Tobacco Use [...]
--- OUTSIDE RECORDS SUMMARY | 2025-01-02 14:43 | XMS_ITS | Clinical Summary ---
Author Organization [facility] Address [facility] [place] [address] Care Team Providers Care Machine Ii Coremaker Name Role Phone Unavailable Primary Care Provider [...] Screening with HPV 1995 Mammogram Screening 2005 Pneumococcal Vaccine: 50+ Ye ars (1 of 1 - PCV) 2015 Zoster Vaccines (1 of 2) 2015 COVID-19 Vaccine (2023-2 5 season) 2024 Meningococcal B Vaccine Aged Out No l onger eligible based on patient's age to complete this topic Meningococcal Vaccine Aged Out No gail franc eligible based on patient's age to complete this topic RSV Immunizations Under 20 Months Aged Out No longer eligible based on patient's age to complete this topic
--- OUTSIDE RECORDS SUMMARY | 2025-01-02 14:43 | XMS_ITS | Data Portability ---
Author Organization [place] [employer], Main Office Address [address] [place] [address] Care Team Providers Care Co Founder And Chairman Name Role Phone CONSTANTINE ROSS Primary Care Provider [phone] CONSTANTINE ROSS Referring Provider Assessment Encounter Date [...] None recorded. Lab estradiol, serum 2022 023 [facility], [address] [place], [address], 3 16:25:18 progestero ne, serum 2022 023 [facility], [address] [place], [address], 3 16:25:18 lh + FSH, serum 2022 023 [facility], [address] [place], [address], 3 16:25:18 testostero ne, free + total, serum 2022 023 [facility], [address] [place], [address], 3 16:25:18 lipid panel, serum 2022 023 [facility], [address] [place], [address], 3 16:30:34 insulin, fasting, serum 2022 023 [facility], [address] [place], [address], 3 16:30:34 vitamin D, 25-hydroxy , total, serum 2022 023 [facility], [address] [place], [address], 3 16:30:34 vitamin B12 + folate, serum or blood 2022 023 [facility], [address] [place], [address], 3 16:30:34 CMP, serum or plasma 2022 023 [facility], [address] [place], [address], 3 16:30:34 CBC w/ auto diff 2022 023 [facility], [address] [place], [address], 3 16:30:34 TSH + free T4, serum 2022 023 [facility], [address] [place], [address], 3 16:30:34 iron + total iron-salbador ng capacity (TIBC), serum 2022 023 [facility], [address] [place], [address], 3 16:30:34 thyroid peroxidase (tpo) Ab, serum 2022 023 [facility], [address] [place], [address], 3 16:30:34 T3, free, serum or plasma 2022 023 [facility], [address] [place], [address], 3 16:30:34 Referral None recorded. Procedures None recorded. Surgeries None recorded. Imaging US, thyroid [address] (Cardiology & Emg), [address] [facility] [address], [place], [address], 3 16:40:09 Medication Orders prednisone 10 mg tablets in a dose pack [address] [place] [address]/Pharmacy #[id number], [address] [place] [address], [address], 3 11:15:26 Patient TargetsNo targets recorded. Patient InstructionsNo instructions recorded. Reason for Referral None Reported. Results Created Date Observation Date Name Description Value Unit Range Abnormal Flag Note LastModifiedBy Organization Detail LastModifiedTime 06/25/20 22 XR, foot, 3 or more view No observ ation record ed. [id number] [facility] [address] [facility] [address], [place], [address], 09/16/2022 10:51:42 08/20/19 23 XR, lumba r spine No observ ation record ed. [id number] [facility] [address], [place], [address], 09/16/2022 10:51:42 12/24/19 MRI, lumba r spine , w/o contr [facility] [address], [place] [address] [phone] Patiolga t Name: GINA GRANT Access ion #: [id number] Sex: F : 1964 2 Locati on: [...] te hypert rophy. Page 1 of 4 [facility] Dhruv t Name: GINA GRANT Access ion #: [id number] Sex: F : 1964 2 Exam Date: [...] . Probab le Page [address] [facility] [place] Pati t Name: ROBIN GRANTSocorro Martinez Access ion #: [id number] Sex: F : 1964 2 Exam [...] charac teriza tion. Page 3 of 4 [facility] Name: GINA GRANT Access ion #: [id number] Sex: F : 1964 2 Exam Date: 12/24/19 12:44 PM Exam Name: MRI L SPINE WO Admitt ing Diagno sis(es ): Create d and electr onical ly signed by: Josh finley MD Signed Date: 12/24/19 3:04 PM (CT) Dictat ed by: Josh finley MD (CT) (CT) Page 4 of 4 [facility] (Imaging) [address] [place], [address], 12/23/2022 16:10:37 Result Notes Documentation Provider Name and Address Organization Details Recorded Time Mri, Lumbar Spine, W/o Contrast : [facility] [address] [place] [address] Patient Name: GINA BRUSH Sex: F : 1965 Location: [facility] Attending Physician: DIAMOND MCNEAL Ordering Physician: DIAMOND MCNAEL Exam Date: 12/23/2022 12:44 PM Exam Name: MRI L SPINE WO Admitting Diagnosis(es): RADIOLOGY REPORT - FINAL EXAM: MRI L SPINE WO HISTORY: spinal stenosis 57-year-old female with low back pain, bilateral leg weakness, lumbar surgery x 2. COMPARISON: Radiographs dated 08/20/2022; CT scan of the abdomen and pelvis dated 05/31/2019. TECHNIQUE: Multiplanar multisequence noncontrast MR images of the lumbar spine were performed. FINDINGS: No fractures are identified in the lumbar spine. The conus terminates at L1. L1-L2: There is a circumferential broad disc bulge with endplate hypertrophy. Page 1 of 4 [facility] Patient Name: GINA BRUSH Sex: F : 1965 Exam Date: 12/23/2022 12:44 PM Exam Name: MRI L SPINE WO Admitting Diagnosis(es): There are mild Modic type 2 changes and Schmorl's nodes in the adjacent endplates. There is bilateral facet and ligamentum flavum hypertrophy. No significant spinal canal stenosis or neural foraminal stenosis bilaterally. L2-L3: There is a circumferential broad disc bulge with endplate hypertrophy. There is a superimposed left foraminal disc herniation measuring 4 mm radial x 16 mm anti radial (image 18, series 701; image 3, series 401). There is bilateral facet and ligamentum flavum hypertrophy. No significant spinal canal stenosis. There is moderate left and no significant right neural foraminal stenosis. L3-L4: There is disc desiccation and loss of disc height. There is a circumferential broad disc bulge with endplate hypertrophy. There is a superimposed right paracentral-preforaminal disc herniation measuring 11 mm transverse x 6 mm AP (images 8-9, series 401; image 12, series 701). There is bilateral facet and ligamentum flavum hypertrophy. The AP dimension of the spinal canal measures 7 mm in the midline. There is partial effacement of the right lateral recess. There is mild bilateral neural foraminal stenosis. L4-L5: There is disc desiccation and near complete loss of disc height. There are Modic type 2 changes in the adjacent endplates. There is a circumferential broad disc bulge with endplate hypertrophy, most prominent in the foraminal regions. There are postoperative changes of right laminotomy and partial right facetectomy. No significant spinal canal stenosis, although there is partial effacement of the lateral recesses on both sides. There is moderate to severe right and mild left neural foraminal stenosis. L5-S1: There is disc desiccation and mild loss of disc height. Probable Page 2 of 4 [facility] Patient Name: GINA BRUSH Sex: F : 1965 Exam Date: 12/23/2022 12:44 PM Exam Name: MRI L SPINE WO Admitting Diagnosis(es): vacuum phenomenon in the disc. There are Modic type 1 and 2 changes in the adjacent endplates. There is 3 mm retrolisthesis L5 on S1. There is a circumferential broad disc bulge with endplate hypertrophy. There is a superimposed left paracentral disc herniation measuring up to 6.5 mm AP x 18 mm transverse (image 8, series 401; image 2, series 701). There is bilateral facet and ligamentum flavum hypertrophy. The AP dimension of the spinal canal measures 6 mm. There is partial effacement of the left lateral recess. There is mild right and moderate left neural foraminal stenosis. There is aneurysmal dilatation of the abdominal aorta measuring up to 3.1 cm AP at the L2 level. The left renal vein is retroaortic. IMPRESSION: 1. No fracture of the lumbar spine. 2. Postoperative changes of L4-L5 partial discectomy, right laminotomy, and partial right facetectomy. 3. Degenerative disc disease and facet arthropathy with multilevel significant neural foraminal stenosis as detailed above, including L2-L3 on the left; L4-L5 on the right; L5-S1 on the left. Additionally, there is partial effacement of the right lateral recess at L3-L4; bilateral lateral recesses at L4-L5; and left lateral recess at L5-S1. These findings may correspond to lower extremity radicular symptoms in right L4 and L5 nerve root distributions; and left L2 and L5 nerve root distributions. 4. Ienj-cy-pnyfchdn spinal canal stenosis at L3-L4 and L5-S1. 5. Mild aneurysmal dilatation of the infrarenal abdominal aorta measuring up to 3.1 cm. Recommend follow-up contrasted CT scan of the abdomen for better characterization. Page 3 of 4 [facility] Patient Name: GINA BRUSH Sex: F : 1965 Exam Date: 12/23/2022 12:44 PM Exam Name: MRI L SPINE WO Admitting Diagnosis(es): Created and electronically signed by: Johs Goodrich MD Signed Date: 12/23/2022 3:04 PM (CT) Dictated by: Josh Goodrich MD (CT) (CT) Page 4 of 4 JESSICA Girard [place] [facility] 12/23/2022 16:10:37 Problems Name Problem SNOMED Code Status Onset Date Resolution Date Notes Provider Name and Address Organization Details Recorded Time Arthritis of left foot 051047294020 9109 Active 2021 Not Available [facility] 3 10:45:11 History of right total knee replaceme nt 624248074397 9102 Active 2019 Not Available [facility] 3 10:45:11 Disorder of shoulder 115968527 Active Not Available [facility] 3 10:45:11 Spinal stenosis of lumbar region 23834432 Active Not Available [facility] 3 10:45:11 Open wound of breast 030280158 Active Not Available [facility] 3 10:45:11 Osteoarth ritis of knee 481286321 Active Not Available [facility] 3 10:45:11 Fall from one level to another Active Not Available [facility] 3 10:45:11 Inflammat ory disorder of breast 521005188 Active Not Available [facility] 3 10:45:11 Shoulder joint pain 668513690 Active Not Available [facility] 3 10:45:11 Low back pain 029413795 Active 2022 Not Available [facility] 3 10:45:11 Current tear of medial cartilage AND/OR meniscus of knee Active Not Available [facility] 3 10:45:11 Enthesopa thy of hip region 20178536 Active Not Available [facility] 3 10:45:11 Depressiv e disorder 38935740 Active bipolar Not Available [facility] 3 10:45:11 Arthritis 3797373 Active Not Available [facility] 3 10:45:12 Neuropath y 507020182 Active Not Available [facility] 3 10:45:12 Osteoarth ritis 801245673 Active Not Available [facility] 3 10:45:12 Incontine nce 88806506 Active Not Available [facility] 3 10:45:12 Hand pain 53782125 Active 2019 Not Available [facility] 3 10:45:12 Derangeme nt of knee 37308087 Active Not Available [facility] 3 10:45:12 Acquired deformity of ankle AND/OR foot 58842996 Active Not Available [facility] 3 10:45:12 Fatigue 61160695 Active 2022 Micheline Henry MD [address] [facility] [place] [address], [place], [address] , [employer] 3 16:19:28 Dyslipide juanis 351650277 Active 2022 Micheline Henry MD [address] [facility] [place] [address], [place], [address] , [employer] [facility] 3 16:19:52 Goiter 1107003 Active 2022 Micheline Henry MD [address] [facility] [place] [address], [place], [address] , [employer] 3 16:20:28 Menopausa l syndrome 477297330 Active 2022 Micheline Henry MD [address] [facility] [place] [address], [place], [address] , [employer] 3 16:21:52 Notes:Some problems listed i n Documents: #[id number], #[id number] could not be added to this patient's chart. Please review these documents and add these problems to the patient's chart manually as needed. Problem Notes None recorded. Procedures Surgical History Date Name Laterality Status Provider Name and Address Organization Details Recorded Time Hysterectomy/revi se vagina completed Dorina Joshua GUIDANCE ADVISER [employer] [facility] 09/17/2022 15:57:19 Back Surgery completed Dorina Joshua GUIDANCE ADVISER [employer] [facility] 09/17/2022 15:58:07 delivery completed Dorina Joshua GUIDANCE ADVISER [employer] [facility] 09/17/2022 15:58:18 Total knee arthroplasty completed Dorina Joshua GUIDANCE ADVISER [facility] 09/17/2022 15:58:29 Tubal Ligation completed Dorina Joshua [employer]UIDANCE ADVIS[employer] [facility] 09/17/2022 15:58:59 Carpal tunnel surgery completed Dorina Joshua [employer] [facility] 09/17/2022 15:59:12 Cataract Surgery completed Dorina Joshua [facility] 09/17/2022 15:59:44 Imaging Results None recorded. Procedure Notes None recorded. Medical Equipment None Reported. Allergies Allergen ID Allergen Name Allergen Category Reaction Reaction Severity Criticality Documentation Date Start Date Code Code System Note Provider Name and Address Organization Details Recorded Time 47261 Product containin g 3-hydroxy -3-methyl glutaryl- coenzyme A reductase inhibitor (product) medicatio n abdominal pain Not available Not available 09/16/2022 18722 009 SNOMED Not Available [facility] 3 10:51:24 00444 1 + Iron medicatio n hives severe Not available 09/16/2022 36842 UNK Not Available [facility] 3 10:51:24 07975 Botox medicatio n myalgias (muscle pain) Not available Not available 09/16/2022 83346 9 RxNorm Not Available [facility] 3 10:51:24 19335 adhesive environme nt,medica tion rash moderate Not available 09/16/2022 54520 UNK Not Available [facility] 3 10:51:24 05419 [place] FA medicatio n nausea moderate Not available 09/16/2022 35096 UNK Not Available [facility] 3 10:51:24 Medications Name Sig Start Date [...] 300 mL by urethral route. 12/04 completed [facility]# [phone] [phone] Not Available Not Available [...] Updated DateTime 08/20/2022 32.4 kg/m2 162.56 cm 77739.96 g Not Available [facility] 09/16/2022 10:42:44 Date Recorded Body height Body mass index (BMI) Body weight Body temperature Heart rate Systolic blood pressure Diastolic blood pressure Provider Name and Address Organization Details Last Updated DateTime 162.56 cm 33.5 kg/m2 76363.5 1 g 97.6 [degF] 84 /min 136 mm[Hg] 80 mm[Hg] Dorina Coreasgypsy [facility] [employer] [facility] 15:55:12 Date Recorded Body height Body mass index (BMI) Body weight Provider Name and Address Organization Details Last Updated DateTime 12/28/2022 162.56 cm 32.4 kg/m2 67814.96 g Mary Manrique [place] [employer] [facility] [employer] [facility] 12/28/2022 10:55:50 Date Recorded Body mass index (BMI) Body height Body weight Provider Name and Address Organization Details Last Updated DateTime 06/25/2022 34.3 kg/m2 162.56 cm 01730.47 g Not Available [facility] 09/16/2022 10:42:44 Social History None recorded. Functional Status Question Answer Note LastModified by Organizat ion Details LastModified Time What is your level of alcohol consumption? None [id number] Information not available 09/16/2022 Mental Status None recorded. Family History Relationship Description Onset Age of this Age Resolved Age Notes LastModified by Organization Details LastModified Time Father Heart disease [id number] Not available 09/16/2022 10:42:15 Father Hypertensive disorder MIGRATION.429 [id number] Not available 09/16/2022 10:42:15 Father Diabetes mellitus MIGRATION.459 [id number] Not available 09/16/2022 10:42:15 Mother Heart disease [id number].126 [id number] Not available 09/16/2022 10:42:15 Mother Hypertensive disorder MIGRATION.907 [id number] Not available 09/16/2022 10:42:15 Mother Kidney disease MIGRATION.792 [id number] Not available 09/16/2022 10:42:15 Maternal Grandmother Cerebrovascu lar accident MIGRATION.285 [id number] Not available 09/16/2022 10:42:15 Brother Family history of malignant neoplasm MIGRATION.877 [id number] Not available 09/16/2022 10:42:15 Brother Family history of malignant neoplasm MIGRATION.914 [id number] Not available 09/16/2022 13:17:10 Sister Diabetes mellitus MIGRATION.096 [id number] Not available 09/16/2022 10:42:15 Sister Diabetes mellitus MIGRATION.648 [id number] Not available 09/16/2022 13:17:10 Medical History Condition Response BLINDNESS N RHEUMATIC FEVER N MRSA N BACK INJECTIONS N INFECTIOUS DISEASE N LUNG DISEASE/DISORDER N HEART ARRHYTHMIA N HISTORY OF DRUG ABUSE N INSOMNIA N ESRD N COPD N RADIATION / CHEMOTHERAPY N HIGH CHOLESTEROL / HYPERLIPIDEMIA N EYE PROBLEMS N HYPERTHYROIDISM Y PVD N BLOOD DISEASES N EDEMA N SURGERY N HYPOTHYROIDISM N SHINGLES N DEPRESSION (INCLUDING POST ) Y HAVE YOU BEEN HOSPITALIZED OR SEEN IN [facility] IN THE PAST YEAR ? N FAILED BACK SYNDROME N STROKE/TIA N THYROID DISEASE N BENIGN PROSTATIC HYPERPLASIA N POLYCYSTIC OVARIES N OBESITY N EXCESSIVE PERSPIRATION N GERD/NAUSEA N ANEURYSM N OSTEOPOROSIS Y URINARY/BLADDER/KIDNEY PROBLEMS [...] SNOMED-CT Code Diagnosis ICD10 Code Diagnosis Note [id number] Diamond Mcneal MD [facility] [address] [place] [address] 06/25/2022 00:00:00 06/25/2022 14:45:53 [id number] Diamond Mcneal MD [facility] [address] [place] [address] 08/20/2022 00:00:00 08/20/2022 13:25:35 [id number] Micheline Henry MD [facility] [address] [place] [address] 09/17/2022 15:44:12 09/17/2022 16:40:09 Fatigue 17232187 R53.83 Will send for thyroid antibodies to screen for autoimmune thyroid disease in addition to CBC, CMP, ferritin and B12/folate to screen for other potential secondary causes of fatigue. Dyslipidemia 277662312 E 78.5 Send for lipid panel to assess need to start on fish oil or alternativ e therapy as patient had reaction to statin. Goiter 6134892 E04.9 Will send for baseline thyroid ultrasound as she does have a palpable thyroid and repeat thyroid function panel to assess function. Menopausal syndrome 1237 35225 N95.9 Send for hormone panel to screen [...] she chooses to go outside of the [facility] to obtain labwork she was [...] ing. Thank you for this consultati on. [id number] Diamond Mcneal MD [facility] [place] [address] [facility] [address] [place] [address] 12/28/2022 10:50:43 12/28/2022 11:15:45 Low back pain 321040496 M54.50 Health Concerns Section Related Observation LastModified by Organization Detai ls LastModified Time None Recorded Concern Status LastModified by Organization Details LastModified Time None Recorded Advance Directives Directive None Recorded Payers Insurance Date Sequence Insurance Name Policy Number Policy Manriquez Covered Member ID Manriquez Member ID Guarantor Name 12/31/2022 1 [facility] - DOS ON OR AFTER 21 (MEDICAID REPLACEMENT - HMO) Gina Brush [id number] Gina Brush Notes Date Note Type Note Provider Name [...] change in bowel/bladder habits;weakness;wa rmth Not Available [place] [facility] 08/20/2022 13:25:35 09/17/2022 text/html 57 yo female [...] for a few days- this was before aida. Micheline Henry MD [address], [place], [address], [employer] 09/17/2022 16:33:31 12/28/2022 text/html Patient returns back pain. 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 She has pain with almost any activity and is bothering her a lot at this point. She has already had surgery in the past. Diamond Mcneal MD [address], [place], [address], [employer] 12/28/2022 11:14:34 OBGyn Episode No OBEpisode recorded.
== END 2025-01-02 13:53 | disposition home or self-care (01) ==
PROVIDERS: PCP Internal Medicine; Visit Provider Internal Medicine
DX: I25.10 Atherosclerotic heart disease of native coronary artery without angina pectoris (principal); I83.90 Asymptomatic varicose veins of unspecified lower extremity; K21.9 Gastro-esophageal reflux disease without esophagitis; R60.9 Edema, unspecified; I73.9 Peripheral vascular disease, unspecified
CPT/HCPCS: 93923

== ENCOUNTER 2025-01-27 19:49 | Emergency (ER) | payer OTHER, SELFPAY ==
[2025-01-27 19:52] VITALS: BP 146/63; PULSE 77; RESP 18; TEMP 36.2; O2SAT 100
--- OUTSIDE RECORDS SUMMARY | 2025-01-27 19:52 | XMS_ITS | Encounter Summary ---
Author Organization [facility] Address [facility] [place] [address] Care Team Providers Care Feed Weigher Name Role Phone Unavailable Primary Care Provider Unavailabl e Encounter Details Date Type Department Care Team (Late st Contact Info) Description 12/24/2018 Abstract [facility] CONVERSION [address] [place] [address] , Generic Conversion, Social History Tobacco Use [...]
--- OUTSIDE RECORDS SUMMARY | 2025-01-27 19:52 | XMS_ITS | Clinical Summary ---
Author Organization [facility] Address [facility] [place] [address] Care Team Providers Care Face Cleaner Name Role Phone Unavailable Primary Care Provider [...]
--- OUTSIDE RECORDS SUMMARY | 2025-01-27 19:52 | XMS_ITS ---
Author Organization Unknown Plan of Treatment Description Planned Activity Planned Timing [facility] is a provider organization who partners directly with Health Plans and provides integrated primary care, behavioral health, and social and human services assistant for an attributed population Letter encounter to patientTelephone encounter Jan 11, 2025Jul 2024 Patient Care team information Name Category Status Period Participants - - Proposed period not known -
--- OUTSIDE RECORDS SUMMARY | 2025-01-27 19:52 | XMS_ITS ---
Author Organization Unknown Address [address] [place] [phone] Phone Care Team Providers Care Cover Inspector Name Role Phone ALLIE BENZ Attending Unavailable [...] Anil Perdue M.D. MF: RITO Report ID: [id number] Reading Location: [id number] ELBOW MINIMUM 3V RIGHT - Com pleted: [...] Anil Perdue M.D. MF: RITO Report ID: [id number] Reading Location: [id number] WRIST 3V LEFT - Completed: 0 12/15/2023 [...] Anil Perdue M.D. MF: RITO Report ID: [id number] Reading Location: [id number] WRIST 3V RIGHT - Completed: 12/15/2023 10:00 [...] Malcolm Romero D.O. AP: AP Report ID: [id number] Reading Location: [id number] Social History Type Status Start Date End [...]
--- OUTSIDE RECORDS SUMMARY | 2025-01-27 20:15 | XMS_ITS ---
Author Organization Unknown Plan of Treatment Description Planned Activity Planned Timing [facility] is a provider organization who partners directly with Health Plans and provides integrated primary care, behavioral health, and long term care social worker for an attributed population Letter encounter to patientTelephone encounter Jan 11, 2025Jul 2024 Patient Care team information Name Category Status Period Participants - - Proposed period not known -
--- OUTSIDE RECORDS SUMMARY | 2025-01-27 20:15 | XMS_ITS ---
Author Organization Unknown Address [address] [place] [phone] Phone Care Team Providers Care Survey Party Chief Name Role Phone ALLIE BENZ Attending Unavailable [...] Anil Perdue M.D. MF: RITO Report ID: [id number] Reading Location: [id number] ELBOW MINIMUM 3V RIGHT - Com pleted: [...] Anil Perdue M.D. MF: RITO Report ID: [id number] Reading Location: [id number] WRIST 3V LEFT - Completed: 0 12/15/2023 [...] Anil Perdue M.D. MF: RITO Report ID: [id number] Reading Location: [id number] WRIST 3V RIGHT - Completed: 12/15/2023 10:00 [...] Malcolm Romero D.O. AP: AP Report ID: [id number] Reading Location: [id number] Social History Type Status Start Date End [...]
--- OUTSIDE RECORDS SUMMARY | 2025-01-27 20:15 | XMS_ITS | Clinical Summary ---
Author Organization [facility] Address Counts include 234 beds at the [facility] [place] [address] Care Team Providers Care Respiratory Assistant Name Role Phone Unavailable Primary Care Provider [...]
--- OUTSIDE RECORDS SUMMARY | 2025-01-27 20:15 | XMS_ITS | Encounter Summary ---
Author Organization [facility] Address Formerly [facility] [place] [address] Care Team Providers Care Ruffling Machine Operator Name Role Phone Unavailable Primary Care Provider Unavailabl e Encounter Details Date Type Department Care Team (Late st Contact Info) Description 12/24/2018 Abstract SFL CONVERSION [address] [place] [address] , Generic Conversion, Social History Tobacco Use [...]
--- NOTE | 2025-01-27 20:39 | ED.GENADULT ---
HPI - General Adult General Chief complaint: Unspecified Stated complaint: sore in mouth Time Seen by Provider: 01/27/25 20:01 History of Present Illness HPI narrative: Patient is a 59-year-old female who presents the emergency department this evening complaining of a sore at the roof of her mouth. States that she was told that she has an extra bone in the roof of her mouth when she was getting fitted for false teeth and they recommended having it removed by an oral surgeon. Patient states that she has medicated has been very difficult for her to find an oral surgeon that takes her insurance and she is currently in the process of that. She states that she has been having a sore throat and some URI symptoms and today noticed a sore along the roof of her mouth. States that it does burn/staying elevated specially when she is eating. Denies any additional symptoms or concerns including any fevers or chills. Related Data Home Medications ?Medication ?Instructions ?Recorded ?Confirmed ?Last Taken ?Type gabapentin 600 mg tablet 600 mg PO TID 07/23/22 04/15/24 Unknown History lithium carbonate 300 mg capsule 300 mg PO BID 07/23/22 04/15/24 Unknown History quetiapine 50 mg tablet 50 mg PO QHS 07/23/22 04/15/24 Unknown History sertraline 100 mg tablet 100 mg PO TID 07/23/22 04/15/24 Unknown History aspirin 81 mg capsule 81 mg PO DAILY 04/15/24 04/15/24 Unknown History ezetimibe 10 mg tablet 10 mg PO DAILY 04/15/24 04/15/24 Unknown History pantoprazole 40 mg tablet,delayed 40 mg PO DAILY 04/15/24 04/15/24 Unknown History release propranolol 10 mg tablet 10 mg PO DAILY 04/15/24 04/15/24 Unknown History Allergies Allergy/AdvReac Type Severity Reaction Status Date / Time adhesive tape Allergy Severe BLISTERS Verified 07/23/22 10:30 ferrous fumarate Allergy Severe HIVES, SOB Verified 07/23/22 10:30 folic acid Allergy Severe HIVES, SOB Verified 07/23/22 10:30 morphine Allergy Severe IRRITABILIT Verified 07/23/22 10:30 Y vit,tx Allergy Severe HIVES, SOB Verified 07/23/22 10:30 calc,iron,folic acd(less thn 1 mg) vitamins with Allergy Severe HIVES, SOB Verified 07/23/22 10:30 calcium Iyybmti-BVM-RzY Reductase Allergy Severe DECREASED Verified 07/23/22 10:30 Inhibitor (Rzyzezc-Zyf-Mia KIDNEY Reductase Inhibitor) FUNCTION Review of Systems Review of Systems: All systems are reviewed and are negative unless stated otherwise in the HPI. [facility] Past Medical History Medical History section wound complication Bipolar 1 disorder Chronic diarrhea Surgical History Surgical History H/O: hysterectomy Social History Social History Social History: nonsmoker. Nonalcoholic. No drug use. Exam Narrative: General: Alert, awake, afebrile, in no acute distress. HEENT: PERRL, no rhinorrhea, no post nasal drip, canker sore noted at the roof of the mouth, oropharynx erythema consistent with pharyngitis. Neck: Trachea midline, no JVD, no lymphadenopathy. Cardiovascular: Regular rate and rhythm, no murmurs, rubs or gallops, no peripheral edema. Respiratory: Clear to auscultation bilaterally, no tachypnea, no wheezing, no rhonchi, no rubs, no respiratory distress. Abdomen: Soft, nontender, nondistended, no rebound, no guarding, no peritoneal signs. Musculoskeletal: No joint swelling or deformity, normal muscle tone. Skin: No rashes or petechia, no signs of infection. Psychiatric: Alert and oriented, normal behavior and judgment for situation. Neurological: Alert and oriented to person, place, and time. Follows all commands. No focal deficits, speech is clear and fluent. Course Vital Signs Vital signs: Vital Signs Temperature 97.2 F L 01/27/25 19:52 Pulse Rate 77 01/27/25 19:52 Respiratory Rate 18 01/27/25 19:52 Blood Pressure 146/63 H 01/27/25 19:52 Pulse Oximetry 100 01/27/25 19:52 Oxygen Delivery Room Air 01/27/25 19:52 Temperature 97.2 F L 01/27/25 19:52 Pulse Rate 71 01/27/25 21:49 Respiratory Rate 16 01/27/25 21:49 Blood Pressure 143/64 H 01/27/25 21:49 Pulse Oximetry 100 01/27/25 21:49 Oxygen Delivery Room Air 01/27/25 19:52 Medical Decision Making MDM Narrative Medical decision making narrative: The patient was evaluated by myself in the emergency department. History is obtained from patient who is an independent historian and physical exam was performed. External medical records were reviewed at this time. Strep swabs were obtained and noted to be negative. Differential diagnosis considerations include canker sore, pressure wound, pharyngitis viral versus strep. Comorbidities impacting this visit include none. I have evaluated and discussed social determinants of health with the patient that could potentially impact subsequent diagnosis and treatment plans. On repeat assessment of the patient, reevaluation revealed that the patient is doing well and is in no acute distress. Patient symptoms have improved since she arrived to our emergency department. Repeat vital signs were all reviewed and noted to be stable. Differential diagnosis and treatment plan were discussed with the patient at bedside. Patient agrees with discussion and after shared medical decision making agrees with discharge. All questions were answered to the patient's satisfaction. Patient will follow up with her PCP in 3-5 days. Script for Magic mouthwash was sent to patient's pharmacy to use as prescribed for her symptoms. Patient was provided with strict return precautions and instructed to return to the emergency department if any new or worsening symptoms develop. The patient was discharged in stable condition. Vital Signs Vital Signs: Vital Signs Temperature 97.2 F L 01/27/25 19:52 Pulse Rate 77 01/27/25 19:52 Respiratory Rate 18 01/27/25 19:52 Blood Pressure 146/63 H 01/27/25 19:52 Pulse Oximetry 100 01/27/25 19:52 Oxygen Delivery Room Air 01/27/25 19:52 Temperature 97.2 F L 01/27/25 19:52 Pulse Rate 71 01/27/25 21:49 Respiratory Rate 16 01/27/25 21:49 Blood Pressure 143/64 H 01/27/25 21:49 Pulse Oximetry 100 01/27/25 21:49 Oxygen Delivery Room Air 01/27/25 19:52 Lab Data Labs: Lab Results 01/27/25 Range/Units 21:10 Group A Strep (PCR) Not detected (Negative) Discharge Plan Discharge Clinical Impression: Mouth sore, Acute pharyngitis Patient Disposition: Home Condition: Improved Instructions: Antibiotic Form, Pharyngitis (ED) Additional Instructions: Please follow-up with the family doctor within the next 3-5 days. Emergency department for new or worsening symptoms develop. Patient Language: Serbian Prescriptions: New Magic Mouthwash 50 mL suspension 5 ml PO Q6H PRN (Reason: sore throat) Qty: 50 0RF Rx Instructions: Belladonna-Phenobarbital 16.2 mg-0.1037 mg-0.0194 mg/5 mL oral elixir 10 mL; Maalox Maximum Strength 400 mg-400 mg-40 mg/5 mL oral suspension 30 mL; lidocaine 2 % mucosal solution 10 mL; Per 50 mL No Action gabapentin 600 mg tablet 600 mg PO TID sertraline 100 mg tablet 100 mg PO TID lithium carbonate 300 mg capsule 300 mg PO BID quetiapine 50 mg tablet 50 mg PO QHS propranolol 10 mg tablet 10 mg PO DAILY pantoprazole 40 mg tablet,delayed release (DR/EC) 40 mg PO DAILY ezetimibe 10 mg tablet 10 mg PO DAILY aspirin 81 mg Capsule 81 mg PO DAILY Follow-up/Referrals: Burton,Guy Cleaning MD [Primary Care Provider] - 3 Days Time of Disposition: 20:17
[2025-01-27 21:39] LABS: Strep Group A RT-PCR NOT DETECTED (Negative)
[2025-01-27 21:49] VITALS: BP 143/64; PULSE 71; RESP 16; O2SAT 100
== END 2025-01-27 21:51 | disposition home or self-care (01) ==
PROVIDERS: Emergency Provider Emergency Medicine; PCP Internal Medicine
DX: K12.0 Recurrent oral aphthae (principal); J02.9 Acute pharyngitis, unspecified; F31.9 Bipolar disorder, unspecified; Z90.710 Acquired absence of both cervix and uterus
CPT/HCPCS: 87651; 99283

== ENCOUNTER 2025-02-02 13:52 | Outpatient (CLI) | payer OTHER, SELFPAY ==
--- OUTSIDE RECORDS SUMMARY | 2025-02-02 13:59 | XMS_ITS | Clinical Summary ---
Author Organization [facility] Address [address] [place] [address] Care Team Providers Care Lay Up Operator Name Role Phone Unavailable Primary Care [...] 2015 COVID-19 Vaccine (2023-2 5 season) 2024 RSV Immunization or 60+ Years (1 - 1-dose 75+ series) 01/30/2040 Meningococcal B Vaccine Aged Out No l onger eligible based on patient's age to complete this topic Meningococcal Vaccine Aged Out No gail franc eligible based on patient's age to complete this topic RSV Immunizations Under 20 Months Aged Out No longer eligible based on patient's age to complete this topic
--- OUTSIDE RECORDS SUMMARY | 2025-02-02 13:59 | XMS_ITS ---
Author Organization Unknown Address [address] [place] [phone] Phone Care Team Providers Care Pediatric Dentist Name Role Phone ALLIE BENZ Attending Unavailable [...] Anil Perdue M.D. MF: RITO Report ID: [id number] Reading Location: [id number] ELBOW MINIMUM 3V RIGHT - Com pleted: [...] Anil Perdue M.D. MF: RITO Report ID: [id number] Reading Location: [id number] WRIST 3V LEFT - Completed: 0 12/15/2023 [...] Anil Perdue M.D. MF: RITO Report ID: [id number] Reading Location: [id number] WRIST 3V RIGHT - Completed: 12/15/2023 10:00 [...] Malcolm Romero D.O. AP: AP Report ID: [id number] Reading Location: [id number] Social History Type Status Start Date End [...]
--- OUTSIDE RECORDS SUMMARY | 2025-02-02 13:59 | XMS_ITS | Encounter Summary ---
Author Organization [facility] Address Formerly [facility] [place] [address] Care Team Providers Care Turbo Electric Operator Name Role Phone Unavailable Primary Care Provider Unavailabl e Encounter Details Date Type Department Care Team (Late st Contact Info) Description 12/24/2018 Abstract SFL CONVERSION [address] [place] [address] , Generic Conversion, Social History Tobacco Use [...]
== END 2025-02-02 13:53 | disposition home or self-care (01) ==
PROVIDERS: PCP Internal Medicine
DX: R21 Rash and other nonspecific skin eruption (principal)
CPT/HCPCS: 36415; 82785; 86003; 86008

== ENCOUNTER 2025-03-24 21:55 | Emergency (ER) | payer OTHER, SELFPAY ==
[2025-03-24] VITALS (7 sets, daily range): BP systolic 101–128; BP diastolic 42–69; PULSE 67–79; RESP 16–20; TEMP 36.5; O2SAT 91–97
--- OUTSIDE RECORDS SUMMARY | 2025-03-24 21:57 | XMS_ITS | Clinical Summary ---
Author Organization [facility] Address [address] [place] [address] Care Team Providers Care Paper Pattern Folder Name Role Phone Unavailable Primary Care Provider [...] Vaccines (1 of 2) 2015 COVID-19 Vaccine ( - 2023-2 5 season) 2025 RSV Immunization or 60+ Years (1 - [...]
--- OUTSIDE RECORDS SUMMARY | 2025-03-24 21:57 | XMS_ITS | Encounter Summary ---
Author Organization [facility] Address [address] [place] [address] Phone Care Team Providers Care Rate And Cost Analyst Name Role Phone Unknown, Notinfile Primary Care Provider Unavail able Encounter Details Date Type Department Care Team (Late st Contact Info) Description 03/23/2025 Results [facility] Medicine Cardiology [address] [facility] [address]th [place] [address] [place] [id number] Hayden Portillo, BUYER INTERN [address] [facility] [address] [place] [address] Lipid panel Social History Tobacco Use Types Packs/Day Years Used Date Smoking Tobacco: Former Cigarettes 1 40 1 97 - 2014 Vaping Quit: 2023 Passive Smoke Exposure: Never Smokeless Tobacco: Never Alcohol Use Standard Drinks/Week Comments Yes 0 (1 standard drink = 0.6 oz pur e alcohol) socially AUDIT-C Answer Date Recorded Q1: How often do you have a drink containing alc ohol? Monthly or less 01/15/2025 Q2: How many drinks containi ng alcohol do you have on a typical day when you are drinking? 1 or 2 01/15/2025 Q3: How often do you have si x or more drinks on one occasion? Never 01/15/2025 Personal Safety Answer Date Recorded Have you ever been in or are you currently in a harmful physical or emotional relationship or is someone making you feel afraid or unsafe? 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
--- OUTSIDE RECORDS SUMMARY | 2025-03-24 21:57 | XMS_ITS | Encounter Summary ---
Author Organization [facility] Address Formerly [facility] [place] [address] Care Team Providers Care Sed Special Education Teacher Name Role Phone Unavailable Primary Care Provider Unavailabl e Encounter Details Date Type Department Care Team (Late st Contact Info) Description 12/24/2018 Abstract SFL CONVERSION [address] [place] [address] , Generic Conversion, Social History Tobacco Use [...]
--- OUTSIDE RECORDS SUMMARY | 2025-03-24 21:57 | XMS_ITS | Encounter Summary ---
Author Organization [facility] Address [address] [place] [address] Phone Care Team Providers Care Route Salesperson Name Role Phone Unknown, Notinfile Primary Care Provider Unavail able Encounter Details Date Type Department Care Team (Late st Contact Info) Description 03/23/2025 Telephone [facility] Medicine Cardiology [address] [facility] [address] 8th [place] [address] [place] [id number] Juan Luis Martínez MD [address] 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 She said it changes. * Telephone Encounter - Gail Valencia. - 03/23/2025 11:21 AM CDT ----- Message from Nurse Windy Matta sent at 03/23/2025 11:18 AM CDT ----- Regarding: FW: pt will call to schedule follow up appt Contact: Please call and schedule pt with Dr. Martínez in 6 months or so ----- Message ----- From: Katia Veliz Sent: 03/22/2025 3:42 PM CDT To: Isidro Martínez Clinical [place] Subject: pt will call to schedule follow up appt Good afternoon, Pt had an appointment today with Hayden Portillo. She wanted to call to schedule her 6 month follow up appointment with . documented in this encounter Plan of Treatment Not on file documented as of this encounter Visit Diagnoses Not on filedocumented in this encounter Care Teams Route Salesperson Relationship Specialty Start Date End Date Unknown, Notinfile PCP - General 01/02/25 documented as of this encounter
--- NOTE | 2025-03-24 22:12 | ED.SKABFB ---
HPI - Skin/Abscess/Foreign Bdy General Chief complaint: Skin/Abscess/Foreign Body Stated complaint: Skin Infection Time Seen by Provider: 03/24/25 22:12 Source: patient Mode of arrival: ambulatory Limitations: no limitations History of Present Illness HPI narrative: 60-year-old female with a history of anxiety/depression, bipolar, CAD, dyslipidemia, recurrent breast infection status post removal bilateral nipples, status post breast surgery in July of 2024 and December of 2024 presents to the ED with a 3 day history of -- right breast pain and discharge from the healed incision. -- Low-grade fever -- not feeling well MD complaint: other ( right breast pain and questionable discharge) Onset (ago): day(s) ( 3 days) Tetanus up to date: yes Location: chest ( right breast) Severity: moderate Quality: aching Pain Consistency: constant Relieving factors: none Exacerbating factors: none Associated symptoms: fever, chills and nausea Treatments prior to arrival: none Related Data Home Medications ?Medication ?Instructions ?Recorded ?Confirmed ?Last Taken ?Type gabapentin 600 mg tablet 600 mg PO TID 07/23/22 03/06/25 Unknown History lithium carbonate 300 mg capsule 300 mg PO BID 07/23/22 03/06/25 Unknown History quetiapine 50 mg tablet 50 mg PO QHS 07/23/22 03/06/25 Unknown History sertraline 100 mg tablet 100 mg PO TID 07/23/22 03/06/25 Unknown History aspirin 81 mg capsule 81 mg PO DAILY 04/15/24 03/06/25 Unknown History ezetimibe 10 mg tablet 10 mg PO DAILY 04/15/24 03/06/25 Unknown History pantoprazole 40 mg tablet,delayed 40 mg PO DAILY 04/15/24 03/06/25 Unknown History release propranolol 10 mg tablet 10 mg PO DAILY 04/15/24 03/06/25 Unknown History Allergies Allergy/AdvReac Type Severity Reaction Status Date / Time adhesive tape Allergy Severe BLISTERS Verified 03/06/25 07:25 ferrous fumarate Allergy Severe HIVES, SOB Verified 03/06/25 07:25 folic acid Allergy Severe HIVES, SOB Verified 03/06/25 07:25 morphine Allergy Severe IRRITABILIT Verified 03/06/25 07:25 Y vit,tx Allergy Severe HIVES, SOB Verified 03/06/25 07:25 calc,iron,folic acd(less thn 1 mg) vitamins with Allergy Severe HIVES, SOB Verified 03/06/25 07:25 calcium Hvatqqi-LBL-GzZ Reductase Allergy Severe DECREASED Verified 03/06/25 07:25 Inhibitor ([place]uvado-Lxr-Iqb KIDNEY Reductase Inhibitor) FUNCTION onabotulinumtoxinA (From Allergy Mild unkown Verified 03/06/25 09:45 Botox) Review of Systems Review of Systems: All systems reviewed & are unremarkable except as noted in HPI and below Constitutional: Constitutional: Reports as per HPI, Reports no additional constitutional complaints and Reports fever(s) Eyes: Eyes: Reports as per HPI and Reports no additional eye complaints ENT: Reports system reviewed and no additional complaints, except as documented and Reports as per HPI Cardiovascular: Cardiovascular: Reports as per HPI and Reports no additional cardiovascular complaints Respiratory: Respiratory: Reports as per HPI and Reports no additional respiratory complaints Gastrointestinal: Gastrointestinal: Reports as per HPI and Reports no additional gastrointestinal complaints Genitourinary: Genitourinary: Reports no additional female genitourinary complaints and Reports as per HPI Musculoskeletal: Musculoskeletal: Reports no additional musculoskeletal complaints and Reports as per HPI Integumentary/Breasts: Comments: Right breast tenderness and purulent discharge Neurologic: Reports system reviewed and no additional complaints, except as documented and Reports as per HPI Psychiatric: Psychiatric: Reports no additional psychiatric complaints, Reports as per HPI and Reports anxiety Endocrine: Endocrine: Reports no additional endocrine complaints and Reports as per HPI Hematologic/Lymphatic: Hematologic/Lymphatic: Reports no additional hematologic/lymphatic complaints and Reports as per HPI Allergic/Immunologic: Allergic/Immunologic: Reports no additional allergic/immunologic complaints and Reports as per HPI PMFSH Past Medical History Medical History section wound complication Bipolar 1 disorder Chronic diarrhea Surgical History Surgical History H/O: hysterectomy Family History Family History Grandparent Cerebrovascular accident Social History Social History Social History: nonsmoker. Nonalcoholic. No drug use. Smoking status: Never smoker Alcohol intake: current Substance use: current Substance use type: marijuana Lack of Transportation: No Lack of Food: Sometimes True Current Housing: I Have Housing Concerned About Future Housing: No Difficulty Paying Gas/Electric Bills: No Difficulty Paying for Meds: No Currently Unemployed: No Education: Trade/Vocational Certificate Difficulty w/ Childcare or Family Care: No Exam Narrative: afebrile. Const: General: no acute distress Orientation/consciousness: patient oriented x3 Limitations: no limitations HENMT: Head: normal to inspection Ears: external ears normal Face/Nose/Sinus: Normal external nose present Face and sinus: normal facial exam Mouth: Yes Normal oral and palatal mucosa present Throat: posterior oropharynx normal Eyes: Conjunctivae: conjunctivae normal Pupils: Equal, round and reactive pupils present EOM: EOMs intact bilaterally Direct Ophthalmoscopy: no photophobia Neck: Neck: normal visual inspection, no lymphadenopathy and no meningeal signs Chest: Chest palpation & inspection: normal inspection of the chest Other: Right breast-- no erythema. No tenderness. No discharge noted. No regional lymphadenopathy. Resp: Effort & Inspection: normal respiratory effort Auscultation: clear to auscultation bilaterally Cardio: Rate: regular rate Rhythm: regular rhythm GI: GI Palp: Yes Soft to palpation Auscultation: normal bowel sounds Other: No tenderness/rigidity/rebound. : General: Yes no CVA tenderness Skin: General skin exam: normal color Rashes: no rashes Wounds: no wounds Neuro: General: patient oriented x3, moves all extremities and no meningeal signs Cranial nerves: Yes Nystagmus not present Speech: normal speech Gait exam (Neuro): Normal gait present Extrem: General: normal to inspection and no clubbing, cyanosis or edema Psych: Mental Status: mental status grossly normal Affect: normal affect Course Course Emergency Course: Right breast pain-- patient is afebrile with a normal white cell count. Breast is nontender on palpation. No regional lymphadenopathy. Will have the patient follow-up with the primary care physician hypokalemia transaminitis Vital Signs Vital signs: Vital Signs Temperature 36.5 C 03/24/25 21:56 Pulse Rate 79 03/24/25 21:56 Respiratory Rate 16 03/24/25 21:56 Blood Pressure 128/69 03/24/25 21:56 Pulse Oximetry 97 03/24/25 21:56 Oxygen Delivery Room Air 03/24/25 21:56 Temperature 36.5 C 03/24/25 21:56 Pulse Rate 78 03/24/25 23:31 Respiratory Rate 18 03/24/25 23:31 Blood Pressure 114/44 L 03/24/25 23:46 Pulse Oximetry 96 03/24/25 23:46 Oxygen Delivery Room Air 03/24/25 23:31 MDM - Skin/Abscess/Foreign Bdy MDM Narrative Medical decision making narrative: right breast pain transaminitis Differential Diagnosis Differential diagnosis: Likely cellulitis and insect bites Medical Records Attestation: I reviewed the patient's medical records. Lab Data Attestation: I reviewed the patient's lab results. 03/24/25 23:03 03/24/25 23:03 Labs: Lab Results 03/24/25 Range/Units 23:03 WBC 9.9 (4.8-10.8) K/mm3 RBC 3.94 L (4.20-5.40) M/mm3 Hgb 12.0 (12.0-15.0) g/dL Hct 37.5 (35.0-49.0) % MCV 95.2 (78.0-102.0) fL MCH 30.5 (27.0-31.0) pg MCHC 32.0 (32-36) g/dL RDW 14.2 (11.6-14.4) % Plt Count 244 (150-420) K/mm3 MPV 8.7 L (9.2-11.8) fl Immature Gran % (Auto) 0.3 H (0.0-0.0) % Neut % (Auto) 60.1 (50.0-70.0) % Lymph % (Auto) 31.1 (18.0-42.0) % [place] % (Auto) 4.7 (2.0-11.0) % Eos % (Auto) 3.7 (1.0-6.0) % Baso % (Auto) 0.1 (0.0-1.0) % Lymph # (Auto) 3.09 (1.10-4.50) K/mm3 [place] # (Auto) 0.47 (0.10-0.90) K/mm3 Eos # (Auto) 0.37 (0.02-0.50) K/mm3 Baso # (Auto) 0.01 (0.00-0.10) K/mm3 Abs Immat Gran (auto) 0.03 H (0.00-0.00) K/mm3 Absolute Neuts (auto) 5.96 (1.70-7.20) K/mm3 Absolute Nucleated RBC 0.00 (0.00-0.00) K/mm3 Nucleated RBC % 0.0 (0-0.0) % Sodium 141 (137-145) mmol/L Potassium 3.3 L (3.4-5.0) mmol/L Chloride 108 H (98-107) mmol/L Carbon Dioxide 26 (22-30) mmol/L Anion Gap 7 (4-12) mmol/L BUN 5 L D (7-17) mg/dL Creatinine 0.69 L (0.7-1.0) mg/dL Estim Creat Clear Calc 76 ml/min Estimated GFR > 60 (59 - ) Glucose 112 H (65-110) mg/dL Calculated Osmolality 290 (285-295) mOsm/kg Lactic Acid 0.7 (0.4-2.0) mmol/L Calcium 9.6 (8.4-10.2) mg/dL Total Bilirubin 0.4 (0.2-1.3) mg/dL AST 48 H (14-36) U/L ALT 50 H (6-35) U/L Alkaline Phosphatase 79 (38-126) U/L Total Protein 6.7 (6.3-8.2) g/dL Albumin 3.9 (3.5-5.1) g/dL Discharge Plan Discharge Clinical Impression: Breast pain, Transaminitis Patient Disposition: Home Condition: Stable Instructions: Antibiotic Form, Cellulitis (ED) Patient Language: Sami Prescriptions: No Action gabapentin 600 mg tablet 600 mg PO TID sertraline 100 mg tablet 100 mg PO TID lithium carbonate 300 mg capsule 300 mg PO BID quetiapine 50 mg tablet 50 mg PO QHS propranolol 10 mg tablet 10 mg PO DAILY pantoprazole 40 mg tablet,delayed release (DR/EC) 40 mg PO DAILY ezetimibe 10 mg tablet 10 mg PO DAILY aspirin 81 mg Capsule 81 mg PO DAILY Magic Mouthwash 50 mL suspension 5 ml PO Q6H PRN (Reason: sore throat) Qty: 50 0RF Rx Instructions: Belladonna-Phenobarbital 16.2 mg-0.1037 mg-0.0194 mg/5 mL oral elixir 10 mL; Maalox Maximum Strength 400 mg-400 mg-40 mg/5 mL oral suspension 30 mL; lidocaine 2 % mucosal solution 10 mL; Per 50 mL Follow-up/Referrals: Burton,Guy Cleaning MD [Primary Care Provider] Time of Disposition: 00:03
--- NOTE | 2025-03-24 22:40 | PC.NURSE ---
THIS RN HVAC MAINTENANCE TECHNICIAN WHILE DR FRANCES COMPLETED BREAST EXAM
--- NOTE | 2025-03-24 23:00 | PC.NURSE ---
BRO WITH LAB AT THE BEDSIDE
[2025-03-24 23:10] LABS: Hematocrit 37.5 % (35.0-49.0); Hemoglobin 12.0 g/dL (12.0-15.0); Immature Granulocyte Percent A 0.3 % (0.0-0.0); Lymphocytes Absolute Auto 3.09 K/mm3 (1.10-4.50); Mean Corpuscular HGB Conc 32.0 g/dL (32-36); Mean Corpuscular Hemoglobin 30.5 pg (27.0-31.0); Mean Corpuscular Volume 95.2 fL (78.0-102.0); Nucleated Red Blood Cells Absolute Auto 0.00 K/mm3 (0.00-0.00); Nucleated Red Blood Cells Perc 0.0 % (0-0.0); Platelet Count Result 244 K/mm3 (150-420); Red Blood Count 3.94 M/mm3 (4.20-5.40); White Blood Count 9.9 K/mm3 (4.8-10.8)
--- NOTE | 2025-03-24 23:16 | PC.NURSE ---
PATIENT RESTING ON STRETCHER WITH FAMILY AT HER SIDE. AWAITING LAB WORK. NO NEEDS VOICED AT THIS TIME
[2025-03-24 23:19] LABS: Alanine Aminotransferase 50 U/L (6-35); Albumin Level 3.9 g/dL (3.5-5.1); Alkaline Phosphatase 79 U/L (38-126); Anion Gap 7 mmol/L (4-12); Aspartate Amino Transferase 48 U/L (14-36); Bilirubin,Total 0.4 mg/dL (0.2-1.3); Blood Urea Nitrogen 5 mg/dL (7-17); Calcium 9.6 mg/dL (8.4-10.2); Carbon Dioxide 26 mmol/L (22-30); Chloride 108 mmol/L (98-107); Estimated CRCL calculation 76 ml/min; Estimated Glomerular Filt Rate > 60; Glucose 112 mg/dL (65-110); Osmolality Calculated 290 mOsm/kg (285-295); Potassium 3.3 mmol/L (3.4-5.0); Sodium 141 mmol/L (137-145); Total Protein 6.7 g/dL (6.3-8.2)
[2025-03-25] VITALS: O2SAT 94
[2025-03-25 00:01] VITALS: BP 107/48; PULSE 72; RESP 18; O2SAT 94
[2025-03-25 00:07] VITALS: BP 112/53; PULSE 70; RESP 20; O2SAT 97
[2025-03-25] MEDS: POTASSIUM CHLORIDE 20 MEQ PACKET (FOR LIQUID) PO (00:11)
[2025-03-25 00:22] VITALS: BP 129/52; PULSE 74; RESP 18; O2SAT 97
== END 2025-03-25 00:25 | disposition home or self-care (01) ==
PROVIDERS: Emergency Provider Internal Medicine Critical Care Medicine; PCP Internal Medicine
DX: N64.4 Mastodynia (principal); R74.01 Elevation of levels of liver transaminase levels; I25.10 Atherosclerotic heart disease of native coronary artery without angina pectoris; E78.5 Hyperlipidemia, unspecified
CPT/HCPCS: 36415; 80053; 83605; 85025; 99283; A9270